=== PATIENT | male | born 1955 | race Caucasian/White ===

== ENCOUNTER → 2016-10-12 | Outpatient (CLI) | payer MEDICARE ==
[2016-10-12 17:09] LABS: Bilirubin, Delta 0.5 mg/dL (0.0-0.2); Total Bilirubin 0.9 mg/dL (0.2-1.3)
[2016-10-12 17:24] LABS: Basophils % (A) 1 %; CH 32.5; CHCM 34.3; Eosinophils # (A) 0.2 k/uL (0-0.7); Eosinophils % (A) 3 %; HCT 44.8 % (39.0-53.0); HDW 2.63; Luc # (Auto) 0.12; Luc % (Auto) 2; Lymphocytes # (A) 1.4 k/uL (1.0-4.8); Lymphocytes % (A) 18 %; MCH 31.9 pg (25.0-35.0); MCHC 33.5 g/dL (31.0-37.0); MCV 95.1 fL (80.0-100.0); Mean Platelet Volume 7.2; Monocytes # (A) 0.3 k/uL (0-1.0); Monocytes % (A) 4 %; Neutrophils # (A) 5.8 k/uL (1.3-7.7); Neutrophils % (A) 74 %; RBC 4.71 m/uL (4.30-5.90); RDW 12.7 % (11.5-15.5); WBC 7.9 k/uL (3.8-10.6); WBC (Perox) 7.93
[2016-10-13 17:27] LABS: Hepatits C Virus RNA, Quant <12 IU/mL (<12); LOG HCV IU/mL <1.08 (<1.08)
== END | disposition home or self-care (01) ==
LOC: LABWHC1 16:18
PROVIDERS: ATTEND Physician Assistant
DX: B18.2 Chronic viral hepatitis C (principal)
CPT/HCPCS: 36415; 80076; 85025; 87522

== ENCOUNTER 2016-12-06 17:41 | Inpatient (IN) | payer MEDICARE ==
[2016-12-06] MEDS ORDERED: SODIUM CHLORIDE 0.9% 1,000 ML IV ONE (18:54)
--- NOTE | 2016-12-06 19:14 | ED ---
URI HPI - General Source: patient, RN notes reviewed Mode of arrival: ambulatory Limitations: no limitations <Aliyah Baugh - Last Filed: 12/06/16 22:40> <Slick Garber - Last Filed: 12/06/16 23:09> - General Chief Complaint: Upper Respiratory Infection Stated Complaint: Poss.flu Time Seen by Provider: 12/06/16 18:52 - History of Present Illness Initial Comments: Patient is 61-year-old male chief complaint of fatigue and increased cough over the past 3 months. 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 He has been on 2 Z-Paks and Levaquin however is not any better. Patient reports that last him he is on antibiotic was approximately a month ago. Patient states that he is coughing up purulent sputum. He denies any history of COPD but does smoke 3 cigarettes a day. Patient states that he has also had 2 episodes of vomiting yesterday. Patient denies any fever or chills. (Aliyah Baugh) - Related Data Home Medications Medication Instructions Recorded Confirmed Methadone [Dolophine] 40 mg PO DAILY 09/03/14 12/06/16 Diazepam [Valium] 10 mg PO DAILY 12/08/15 12/06/16 Cetirizine HCl 10 mg PO DAILY 12/06/16 12/06/16 Lisinopril [Prinivil] 10 mg PO DAILY 12/06/16 12/06/16 Allergies Allergy/AdvReac Type Severity Reaction Status Date / Time Penicillins Allergy Unknown Verified 12/06/16 20:10 Childhood Review of Systems ROS Other: All systems not noted in ROS Statement are negative. <Aliyah Baugh - Last Filed: 12/06/16 22:40> ROS Other: All systems not noted in ROS Statement are negative. <Slick Garber - Last Filed: 12/06/16 23:09> ROS Statement: Those systems with pertinent positive or pertinent negative responses have been documented in the HPI. Past Medical History Past Medical History: Hypertension, Liver Disease Additional Past Medical History / Comment(s): HEP C; HX OF DIALYSIS PER PT, NOW OFF. History of Any Multi-Drug Resistant Organisms: MRSA Date of last positivie culture/infection: 2007 MDRO Source:: Blood/Bone Past Surgical History: Cholecystectomy, Hernia Repair, Tonsillectomy Additional Past Surgical History / Comment(s): COLONOSCOPY. Umbilical and Inguinal surgery x4 Past Anesthesia/Blood Transfusion Reactions: No Reported Reaction Past Psychological History: Anxiety, Panic Disorder Smoking Status: Current every day smoker Past Alcohol Use History: Occasional Additional Past Alcohol Use History / Comment(s): STATES ABOUT 3-4 shots of ryan alfred per day Past Drug Use History: None Reported Additional Drug Use History / Comment(s): Methadone for opiates taken for severe back pain - Past Family History Mother Family Medical History: Cancer Additional Family Medical History / Comment(s): of colon CA Father Family Medical History: Cancer Additional Family Medical History / Comment(s): Colostomy from colon CA <Aliyah Baugh - Last Filed: 12/06/16 22:40> General Exam Limitations: no limitations <Aliyah Baugh - Last Filed: 12/06/16 22:40> General appearance: alert, in no apparent distress, anxious Head exam: Present: atraumatic, normocephalic, normal inspection Eye exam: Present: normal appearance, PERRL, EOMI. Absent: scleral icterus, conjunctival injection, periorbital swelling ENT exam: Present: normal exam, mucous membranes moist Neck exam: Present: normal inspection. Absent: tenderness, meningismus, lymphadenopathy Respiratory exam: Present: normal lung sounds bilaterally, wheezes, decreased breath sounds, prolonged expiratory. Absent: respiratory distress, rales, rhonchi, stridor Cardiovascular Exam: Present: regular rate, normal rhythm, normal heart sounds. Absent: systolic murmur, diastolic murmur, rubs, gallop, clicks GI/Abdominal exam: Present: soft, normal bowel sounds. Absent: distended, tenderness, guarding, rebound, rigid Extremities exam: Present: normal inspection, full ROM, normal capillary refill. Absent: tenderness, pedal edema, joint swelling, calf tenderness Back exam: Present: normal inspection Neurological exam: Present: alert, oriented X3, CN II-XII intact Psychiatric exam: Present: normal affect, normal mood Skin exam: Present: warm, dry, intact, normal color. Absent: rash <Slick Garber - Last Filed: 12/06/16 23:09> Course <Aliyah Baugh - Last Filed: 12/06/16 22:40> <Slick Garber - Last Filed: 12/06/16 23:09> Vital Signs 12/06/16 12/06/16 12/06/16 18:29 20:00 20:56 Temperature 98.4 F 98.6 F Pulse Rate 70 98 76 Respiratory 18 24 Rate Blood Pressure 91/55 126/65 O2 Sat by Pulse 91 L 94 L Oximetry 12/06/16 12/06/16 12/06/16 21:00 21:03 22:00 Temperature 100.5 F H Pulse Rate 99 76 103 H Respiratory 22 22 Rate Blood Pressure 141/58 99/64 O2 Sat by Pulse 96 94 L Oximetry 12/06/16 23:00 Temperature 100.6 F H Pulse Rate 102 H Respiratory 20 Rate Blood Pressure 112/72 O2 Sat by Pulse 93 L Oximetry - Reevaluation(s) Reevaluation #1: 12/06/16 23:08 Said patient is improved with symptomatically therapy fever control, we'll give breathing treatment (Slick Garber) Medical Decision Making - Lab Data Result diagrams: 12/06/16 20:04 12/06/16 20:04 - Radiology Data Radiology results: report reviewed <Lachelle Baughily - Last Filed: 12/06/16 22:40> - Lab Data Result diagrams: 12/06/16 20:04 12/06/16 20:04 - Radiology Data Radiology results: report reviewed (Chest x-ray suggestive for pneumonia), image reviewed <Slick Garber - Last Filed: 12/06/16 23:09> - Medical Decision Making Patient is 61-year-old male chief complaint of fatigue and increased cough over the past 3 months. He has been on 2 Z-Paks and Levaquin however is not any better. Patient reports that last him he is on antibiotic was approximately a month ago. Patient states that he is coughing up purulent sputum. He denies any history of COPD but does smoke 3 cigarettes a day. Patient states that he has also had 2 episodes of vomiting yesterday. Patient denies any fever or chills. Patient's labwork was reviewed. Is evidence of acute kidney injury.Patient has a BUN of 36, creatinine of 2.5. patient's chest x-ray shows a right lower lobe middle lobe pneumonia. Patient does have positive for influenza. We have the [employer] establish IV line. Patient is given fluids at this time. Given that he had significant elevation in kidney function we will do a CT of the chest without contrast. Chest x-ray was reviewed and is appearing somewhat similar to his previous pneumonia in the right lower lobe. CT chest shows evidence of chronic asbestosis. No pleural effusion or signs of actual pneumonia. (Aliyah Baugh) 61 meowed ER for evaluation of fever, positive fluid, positive pneumonia, will be admitted for IV antibiotics and hemodynamic monitoring (Slick Garber) - Lab Data Lab Results 12/06/16 12/06/16 12/06/16 Range/Units 18:55 20:04 20:04 WBC (3.8-10.6) k/uL RBC (4.30-5.90) m/uL Hgb (13.0-17.5) gm/dL Hct (39.0-53.0) % MCV (80.0-100.0) fL MCH (25.0-35.0) pg MCHC (31.0-37.0) g/dL RDW (11.5-15.5) % Plt Count (150-450) k/uL Neutrophils % (Manual) % Band Neutrophils % % Lymphocytes % (Manual) % Monocytes % (Manual) % Eosinophils % (Manual) % Neutrophils # (Manual) (1.3-7.7) k/uL Lymphocytes # (Manual) (1.0-4.8) k/uL Monocytes # (Manual) (0-1.0) k/uL Eosinophils # (Manual) (0-0.7) k/uL Nucleated RBCs (0-0) /100 WBC Manual Slide Review Toxic Granulation PT 10.9 (9.0-12.0) sec INR 1.1 (<1.1) APTT 23.6 (22.0-30.0) sec Sodium 139 (137-145) mmol/L Potassium 4.5 (3.5-5.1) mmol/L Chloride 104 (98-107) mmol/L Carbon Dioxide 20 L (22-30) mmol/L Anion Gap 15 mmol/L BUN 36 H (9-20) mg/dL Creatinine 2.50 H (0.66-1.25) mg/dL Est GFR (MDRD) Af Amer 32 (>60 ml/min/1.73 sqM) Est GFR (MDRD) Non-Af 26 (>60 ml/min/1.73 sqM) Glucose 86 (74-99) mg/dL Plasma Lactic Acid Juan Manuel (0.7-2.0) mmol/L Calcium 8.8 (8.4-10.2) mg/dL Magnesium 1.7 (1.6-2.3) mg/dL Total Bilirubin 0.8 (0.2-1.3) mg/dL AST 84 H (17-59) U/L ALT 71 (21-72) U/L Alkaline Phosphatase 61 (38-126) U/L Total Creatine Kinase (55-170) U/L CK-MB (CK-2) (0.0-2.4) ng/mL CK-MB (CK-2) Rel Index Troponin I (0.000-0.034) ng/mL NT-Pro-B Natriuret Pep pg/mL Total Protein 7.4 (6.3-8.2) g/dL Albumin 4.3 (3.5-5.0) g/dL Amylase 101 (30-110) U/L Lipase 52 (23-300) U/L Urine Color Urine Appearance (Clear) Urine pH (5.0-8.0) Ur Specific [place] (1.001-1.035) Urine Protein (Negative) Urine Glucose (UA) (Negative) Urine Ketones (Negative) Urine Blood (Negative) Urine Nitrite (Negative) Urine Bilirubin (Negative) Urine Urobilinogen (<2.0) mg/dL Ur Leukocyte Esterase (Negative) Urine RBC (0-5) /hpf Urine WBC (0-5) /hpf Ur Squamous Epith Cells (0-4) /hpf Urine Bacteria (None) /hpf Hyaline Casts (0-2) /lpf Granular Casts (0) /lpf Urine Mucus (None) /hpf Influenza Type A RNA Not Detected (Not Detectd) Influenza Type B (PCR) Detected H (Not Detectd) 12/06/16 12/06/16 12/06/16 Range/Units 20:04 20:04 20:04 WBC 3.7 L (3.8-10.6) k/uL RBC 4.66 (4.30-5.90) m/uL Hgb 15.1 (13.0-17.5) gm/dL Hct 44.4 (39.0-53.0) % MCV 95.3 (80.0-100.0) fL MCH 32.4 (25.0-35.0) pg MCHC 34.0 (31.0-37.0) g/dL RDW 14.0 (11.5-15.5) % Plt Count 128 L (150-450) k/uL Neutrophils % (Manual) 55.0 % Band Neutrophils % 2.0 % Lymphocytes % (Manual) 31.0 % Monocytes % (Manual) 11.0 % Eosinophils % (Manual) 1.0 % Neutrophils # (Manual) 2.1 (1.3-7.7) k/uL Lymphocytes # (Manual) 1.1 (1.0-4.8) k/uL Monocytes # (Manual) 0.4 (0-1.0) k/uL Eosinophils # (Manual) 0.0 (0-0.7) k/uL Nucleated RBCs 0 (0-0) /100 WBC Manual Slide Review Performed Toxic Granulation Present PT (9.0-12.0) sec INR (<1.1) APTT (22.0-30.0) sec Sodium (137-145) mmol/L Potassium (3.5-5.1) mmol/L Chloride (98-107) mmol/L Carbon Dioxide (22-30) mmol/L Anion Gap mmol/L BUN (9-20) mg/dL Creatinine (0.66-1.25) mg/dL Est GFR (MDRD) Af Amer (>60 ml/min/1.73 sqM) Est GFR (MDRD) Non-Af (>60 ml/min/1.73 sqM) Glucose (74-99) mg/dL Plasma Lactic Acid Juan Manuel (0.7-2.0) mmol/L Calcium (8.4-10.2) mg/dL Magnesium (1.6-2.3) mg/dL Total Bilirubin (0.2-1.3) mg/dL AST (17-59) U/L ALT (21-72) U/L Alkaline Phosphatase (38-126) U/L Total Creatine Kinase 146 (55-170) U/L CK-MB (CK-2) 0.6 (0.0-2.4) ng/mL CK-MB (CK-2) Rel Index 0.4 Troponin I <0.012 (0.000-0.034) ng/mL NT-Pro-B Natriuret Pep 230 pg/mL Total Protein (6.3-8.2) g/dL Albumin (3.5-5.0) g/dL Amylase (30-110) U/L Lipase (23-300) U/L Urine Color Urine Appearance (Clear) Urine pH (5.0-8.0) Ur Specific [place] (1.001-1.035) Urine Protein (Negative) Urine Glucose (UA) (Negative) Urine Ketones (Negative) Urine Blood (Negative) Urine Nitrite (Negative) Urine Bilirubin (Negative) Urine Urobilinogen (<2.0) mg/dL Ur Leukocyte Esterase (Negative) Urine RBC (0-5) /hpf Urine WBC (0-5) /hpf Ur Squamous Epith Cells (0-4) /hpf Urine Bacteria (None) /hpf Hyaline Casts (0-2) /lpf Granular Casts (0) /lpf Urine Mucus (None) /hpf Influenza Type A RNA (Not Detectd) Influenza Type B (PCR) (Not Detectd) 12/06/16 12/06/16 Range/Units 20:04 20:35 WBC (3.8-10.6) k/uL RBC (4.30-5.90) m/uL Hgb (13.0-17.5) gm/dL Hct (39.0-53.0) % MCV (80.0-100.0) fL MCH (25.0-35.0) pg MCHC (31.0-37.0) g/dL RDW (11.5-15.5) % Plt Count (150-450) k/uL Neutrophils % (Manual) % Band Neutrophils % % Lymphocytes % (Manual) % Monocytes % (Manual) % Eosinophils % (Manual) % Neutrophils # (Manual) (1.3-7.7) k/uL Lymphocytes # (Manual) (1.0-4.8) k/uL Monocytes # (Manual) (0-1.0) k/uL Eosinophils # (Manual) (0-0.7) k/uL Nucleated RBCs (0-0) /100 WBC Manual Slide Review Toxic Granulation PT (9.0-12.0) sec INR (<1.1) APTT (22.0-30.0) sec Sodium (137-145) mmol/L Potassium (3.5-5.1) mmol/L Chloride (98-107) mmol/L Carbon Dioxide (22-30) mmol/L Anion Gap mmol/L BUN (9-20) mg/dL Creatinine (0.66-1.25) mg/dL Est GFR (MDRD) Af Amer (>60 ml/min/1.73 sqM) Est GFR (MDRD) Non-Af (>60 ml/min/1.73 sqM) Glucose (74-99) mg/dL Plasma Lactic Acid Juan Manuel 1.3 (0.7-2.0) mmol/L Calcium (8.4-10.2) mg/dL Magnesium (1.6-2.3) mg/dL Total Bilirubin (0.2-1.3) mg/dL AST (17-59) U/L ALT (21-72) U/L Alkaline Phosphatase (38-126) U/L Total Creatine Kinase (55-170) U/L CK-MB (CK-2) (0.0-2.4) ng/mL CK-MB (CK-2) Rel Index Troponin I (0.000-0.034) ng/mL NT-Pro-B Natriuret Pep pg/mL Total Protein (6.3-8.2) g/dL Albumin (3.5-5.0) g/dL Amylase (30-110) U/L Lipase (23-300) U/L Urine Color Yellow Urine Appearance Cloudy (Clear) Urine pH 5.5 (5.0-8.0) Ur Specific [place] 1.015 (1.001-1.035) Urine Protein 1+ H (Negative) Urine Glucose (UA) Negative (Negative) Urine Ketones Negative (Negative) Urine Blood Negative (Negative) Urine Nitrite Negative (Negative) Urine Bilirubin Negative (Negative) Urine Urobilinogen <2.0 (<2.0) mg/dL Ur Leukocyte Esterase Negative (Negative) Urine RBC <1 (0-5) /hpf Urine WBC 2 (0-5) /hpf Ur Squamous Epith Cells <1 (0-4) /hpf Urine Bacteria Rare H (None) /hpf Hyaline Casts 16 H (0-2) /lpf Granular Casts 3 (0) /lpf Urine Mucus Rare H (None) /hpf Influenza Type A RNA (Not Detectd) Influenza Type B (PCR) (Not Detectd) 12/06/16 19:14 EKG shows normal sinus rhythm. Low voltage QRS. Ventricular rate of 80 bpm. GA interval 124 ms. QRS tracing 70 ms. QT/QTC 5412 ms. No evidence of ST elevation or T-wave inversion. No evidence of atrial or ventricular arrhythmias. (Aliyah Baugh) - Radiology Data CT shows no acute process. Bilateral complexfindings compatible with this testis related change, would advise one-year follow-up chest CT surveillance. ( Aliyah Baugh) Disposition Time of Disposition: 22:39 <Aliyah Baugh - Last Filed: 12/06/16 22:40> <Slick Graber - Last Filed: 12/06/16 23:09> Clinical Impression: Influenza, Pulmonary asbestosis, Acute kidney injury, Pneumonia Disposition: ADMITTED IP TO THIS HOSP Condition: Stable Referrals: Terese Cortez MD [Primary Care Provider] - 1-2 days
--- NOTE | 2016-12-06 20:06 | XR ---
EXAMINATION TYPE: XR chest 2V DATE OF EXAM: 12/06/2016 7:45 PM COMPARISON: December 18, 2015 HISTORY: Cough TECHNIQUE: Frontal and lateral views of the chest are obtained. FINDINGS: There is a geographic zone of coalescent opacity in the right lower lung, suggesting bronc hopneumonia. Remainder of the lung parenchyma is unremarkable. There is no pulmonary edema. The cardiac silhouette size is within normal limits. There is no pleural effusion, or pneumothorax. The osseous structures are intact. IMPRESSION: RADIOGRAPHIC FINDINGS SUGGEST RIGHT LOWER LOBE BRONCHOPNEUMONIA.
--- NOTE | 2016-12-06 20:08 | XR ---
EXAMINATION TYPE: Abdominal radiographs 2 views DATE OF EXAM: 12/06/2016 7:45 PM COMPARISON: NONE HISTORY: Weakness and generalized pain TECHNIQUE: 2 upright views FINDINGS: There is no pneumatosis and no pneumoperitoneum. The bowel gas pattern is negative. The sof t tissues and skeletal structures are negative for acute findings. IMPRESSION: No acute process.
[2016-12-06 20:27] LABS: Aty Lym Flag Slight; CH 32.8; CHCM 34.6; HCT 44.4 % (39.0-53.0); HDW 3.06; HGB 15.1 gm/dL (13.0-17.5); MCH 32.4 pg (25.0-35.0); MCV 95.3 fL (80.0-100.0); RBC 4.66 m/uL (4.30-5.90); WBC 3.7 k/uL (3.8-10.6); WBC (Perox) 3.89
[2016-12-06 20:38] LABS: INR 1.1 (<1.1); Partial Thromboplastin Time 23.6 sec (22.0-30.0); Prothrombin Time 10.9 sec (9.0-12.0)
[2016-12-06 20:39] LABS: Calcium 8.8 mg/dL (8.4-10.2); Creatine Kinase 146 U/L (55-170); Magnesium 1.7 mg/dL (1.6-2.3); Potassium 4.5 mmol/L (3.5-5.1); Total Bilirubin 0.8 mg/dL (0.2-1.3); Total Protein 7.4 g/dL (6.3-8.2)
[2016-12-06 20:40] LABS: Add Differential Manual Differential
[2016-12-06 20:44] LABS: Manual Review Performed; Nucleated Red Blood Cells 0 /100 WBC (0-0); Total Cells Counted 100; Toxic Granulation Present
[2016-12-06] MEDS ORDERED: IPRATROPIUM-ALBUTEROL 3 ML NEB INHALATION STA (20:48)
[2016-12-06 20:51] LABS: Appearance,Urine Cloudy (Clear); Bacteria,Urine Rare /hpf; Bilirubin,Urine Negative (Negative); Glucose,Urine (UA) Negative (Negative); Granular Casts,Urine 3 /lpf (0); Ketones,Urine Negative (Negative); Leukocyte Esterase,Urine Negative (Negative); Mucus,Urine Rare /hpf; Nitrite,Urine Negative (Negative); PH, Urine 5.5 (5.0-8.0); Particle Count 6924; Protein,Urine 1+ (Negative); RBC,Urine <1 /hpf (0-5); Specific Gravity,Urine 1.015 (1.001-1.035); Squamous Epithelial Cell,Urine <1 /hpf (0-4); UA Billing (MACRO vs. MICRO) MICRO; Urobilinogen,Urine <2.0 mg/dL (<2.0); WBC,Urine 2 /hpf (0-5)
[2016-12-06 20:51] LABS: Creatine Kinase MB 0.6 ng/mL (0.0-2.4); Troponin I <0.012 ng/mL (0.000-0.034)
[2016-12-06] MEDS: SODIUM CHLORIDE 0.9% 1,000 ML IV SCH (22:02)
[2016-12-06] MEDS ORDERED: ACETAMINOPHEN TAB 500 MG TAB PO STA (22:23)
--- NOTE | 2016-12-06 22:23 | CT ---
EXAMINATION TYPE: CT chest wo con DATE OF EXAM: 12/06/2016 9:35 PM COMPARISON: Supradiaphragmatic images from the December 21, 2015 CT HISTORY: Cough and chest congestion. CT DLP: 302.50 mGycm. Automated exposure control for dose reduction was used. FINDINGS: There is redemonstration of the bilateral complex posterolateral pleural thickening associa lennie with pleural-based calcifications, much more prominent on the right. 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 The remainder of the lung parenchyma is clear and well expanded bilaterally. Airways are clear. Coron marilyn calcifications are noted. There is no cardiomegaly. No pericardial effusion. Visualized subdiaphr agmatic structures are unremarkable. Skeletal structures are negative. IMPRESSION: 1. NO ACUTE PROCESS. 2. BILATERAL COMPLEX PLEURAL SPACE FINDINGS COMPATIBLE WITH ASBESTOS RELATED CHANGE; WOULD ADVISE ONE YEAR FOLLOW-UP CHEST CT SURVEILLANCE.
[2016-12-06] MEDS ORDERED: NALOXONE 0.4 MG/ML 1 ML VIAL IV PRN (22:49)
[2016-12-06] MEDS ORDERED: HYDROmorphone 1 MG/ML 1 ML SYRINGE IV PRN (22:49)
[2016-12-06] MEDS ORDERED: BENZOCAINE/MENTHOL LOZENG 1 EACH LOZENGE MUCOUS MEM PRN (22:49)
[2016-12-06] MEDS ORDERED: ACETAMINOPHEN TAB 325 MG TAB PO PRN (22:49)
[2016-12-06] MEDS ORDERED: LEVOFLOXACIN 750MG-D5W PMX 750 MG in DEXTROSE/WATER 1 150ML.BAG IVPB SCH (23:00)
[2016-12-06] MEDS ORDERED: IPRATROPIUM-ALBUTEROL 3 ML NEB INHALATION PRN (23:02)
[2016-12-07] MEDS ORDERED: IPRATROPIUM-ALBUTEROL 3 ML NEB INHALATION SCH
[2016-12-07] MEDS ORDERED: SODIUM CHLORIDE 0.9% 1,000 ML IV ONE ×2 (00:50→06:39)
[2016-12-07 01:35] LABS: Glucose,Whole Blood 119 mg/dL (75-99)
[2016-12-07] MEDS: OSELTAMIVIR 75 MG CAP PO SCH ×2 (02:04→08:35)
[2016-12-07] MEDS: SODIUM CHLORIDE 0.9% 1,000 ML IV SCH ×6 (02:04→19:34)
[2016-12-07 04:47] LABS: CHCM 34.3; HCT 38.9 % (39.0-53.0); HDW 3.07; HGB 13.7 gm/dL (13.0-17.5); MCH 33.9 pg (25.0-35.0); MCHC 35.1 g/dL (31.0-37.0); MCV 96.7 fL (80.0-100.0); Mean Platelet Volume 6.7; RBC 4.03 m/uL (4.30-5.90); RDW 13.9 % (11.5-15.5); WBC 2.7 k/uL (3.8-10.6)
[2016-12-07 05:01] LABS: Calcium 7.6 mg/dL (8.4-10.2); Magnesium 1.6 mg/dL (1.6-2.3); Phosphorous 5.5 mg/dL (2.5-4.5)
[2016-12-07] MEDS: HEPARIN SODIUM,PORCINE 5,000 UNIT/ML 1 ML VIAL SQ SCH ×3 (08:34→23:22)
[2016-12-07] MEDS: LORATADINE 10 MG TAB PO SCH (08:34)
[2016-12-07] MEDS: NICOTINE 14MG/24HR PATCH TRANSDERM SCH (08:36)
[2016-12-07] MEDS ORDERED: FAMOTIDINE 20 MG TAB PO SCH (09:00)
[2016-12-07] MEDS ORDERED: LISINOPRIL 10 MG TAB PO SCH (09:00)
[2016-12-07] MEDS: DIAZEPAM 5 MG TAB PO SCH (09:01)
--- NOTE | 2016-12-07 09:25 | P.CNPUL ---
History of Present Illness Consult date: 12/07/16 Reason for consult: other Chief complaint: Hypotension History of present illness: This is a 61-year-old male who was apparently seen in the emergency room for possible fatigue and upper respiratory infection. The patient had cough for the last couple of months. Apparently tested positive for influenza B. He was started on Levaquin and Tamiflu. He was thought to have possible right lower lobe pneumonia. Probably those changes in the right lower lobe a more chronic in nature. He also apparently has a history of previous asbestos exposure has some changes on chest x-ray and CAT scan that suggested chronic chronic asbestos associated lung disease. The patient had been on a Z-Dylan as an outpatient. Had not been feeling better. He was coughing producing some phlegm. He does smoke a couple cigarettes a day. Today asking for his pain medication. Anyway the patient was on the fifth floor where he was admitted. He was admitted on December 06. He was transferred to the ICU because of "" hypotension. No 18 was called. I was not notified of the admission. The patient arrived here in the ICU and received some additional fluids. Totally that the patient has received about 3 L of fluid. Currently patient on IV appointment 9 at 1:15 hour. He is received 3 L of total fluid. He is on O2 at 2 L. Blood pressure today was 110 systolic. Even when his blood pressure was low, he apparently was not particularly symptomatic. Review of Systems A 12 point review of system is positive for fatigue weakness cough and some phlegm production. For this he was treated with some antibiotics as an outpatient was started on Levaquin and Tamiflu. He tested positive for influenza B. Past Medical History Past Medical History: Hypertension, Liver Disease Additional Past Medical History / Comment(s): HEP C; HX OF DIALYSIS PER PT, NOW OFF. History of Any Multi-Drug Resistant Organisms: MRSA Date of last positivie culture/infection: 2007 MDRO Source:: Blood/Bone Past Surgical History: Cholecystectomy, Hernia Repair, Tonsillectomy Additional Past Surgical History / Comment(s): COLONOSCOPY. Umbilical and Inguinal surgery x4 Past Anesthesia/Blood Transfusion Reactions: No Reported Reaction Past Psychological History: Anxiety, Panic Disorder Smoking Status: Light tobacco smoker Past Alcohol Use History: Occasional Additional Past Alcohol Use History / Comment(s): STATES ABOUT 3-4 shots of captian aubrie per day Past Drug Use History: None Reported Additional Drug Use History / Comment(s): Methadone for opiates taken for severe back pain - Past Family History Mother Family Medical History: Cancer Additional Family Medical History / Comment(s): of colon CA Father Family Medical History: Cancer Additional Family Medical History / Comment(s): Colostomy from colon CA Medications and Allergies Home Medications Medication Instructions Recorded Confirmed Type Methadone [Dolophine] 40 mg PO DAILY 09/03/14 12/06/16 History Diazepam [Valium] 10 mg PO DAILY 12/08/15 12/06/16 History Cetirizine HCl 10 mg PO DAILY 12/06/16 12/06/16 History Lisinopril [Prinivil] 10 mg PO DAILY 12/06/16 12/06/16 History Allergies Allergy/AdvReac Type Severity Reaction Status Date / Time Penicillins Allergy Unknown Verified 12/06/16 20:10 Childhood Physical Exam Osteopathic Statement: *. No significant issues noted on an osteopathic structural exam other than those noted in the History and Physical/Consult. Vitals: Vital Signs Temp Pulse Resp BP BP Pulse Ox 12/07/16 09:00 70 14 102/72 100 12/07/16 08:30 62 9 L 78/47 100 12/07/16 08:00 97.6 F 61 11 L 84/50 100 12/07/16 07:30 59 L 11 L 85/63 100 12/07/16 07:00 62 8 L 82/58 100 12/07/16 06:30 65 12 75/54 99 12/07/16 06:00 67 9 L 84/67 98 12/07/16 05:30 68 9 L 78/57 97 12/07/16 05:00 69 11 L 92/60 97 12/07/16 04:30 68 9 L 89/69 96 12/07/16 04:00 97.8 F 70 10 L 91/68 95 12/07/16 03:00 73 11 L 83/64 93 L 12/07/16 02:30 75 11 L 90/68 93 L 12/07/16 02:11 20 12/07/16 02:00 75 11 L 75/62 92 L 12/07/16 01:39 82 20 74/58 94 L 12/07/16 00:54 86/56 12/07/16 00:53 80/60 12/06/16 23:30 99.9 F H 12/06/16 23:27 77 20 115/63 93 L Intake and Output 12/06/16 12/07/16 12/07/16 22:59 06:59 14:59 Intake Total 1600 1150 Output Total 300 Balance 1300 1150 Intake: IV 1600 1150 Sodium Chloride 0.9% 1, 600 150 000 ml @ 150 mls/hr IV . Q6H40M [facility] Rx#:[id number] Sodium Chloride 0.9% 1, 1000 1000 000 ml @ 999 mls/hr IV . Q1H1M [facility] Rx#:[id number] Output: Urine 300 Other: Voiding Method Urinal Urinal # Voids 0 Weight 84.2 kg No acute distress, oriented 3. HEENT examination is grossly unremarkable. Nasal O2 in place. Mucous membranes are moist. Neck supple. Full range of motion. No adenopathy. Cardiovascular examination reveals regular rhythm rate. S1-S2 normal. No murmur. Lungs clear breath sounds are equal. Abdomen soft bowel sounds are heard Extremities are intact. Results - Laboratory Findings CBC and BMP: 12/07/16 04:23 12/07/16 04:23 PT/INR, D-dimer PT 10.9 sec (9.0-12.0) 12/06/16 20:04 INR 1.1 (<1.1) 12/06/16 20:04 Abnormal lab findings: Abnormal Labs 12/07/16 12/07/16 12/07/16 01:34 04:23 04:23 WBC 2.7 L RBC 4.03 L Hct 38.9 L Plt Count 93 L Carbon Dioxide 20 L BUN 42 H Creatinine 2.24 H Glucose 100 H POC Glucose (mg/dL) 119 H Calcium 7.6 L Phosphorus 5.5 H - Diagnostic Findings Chest x-ray: image reviewed CT scan - chest: image reviewed (Labs x-rays and medications are reviewed.) Assessment and Plan (1) Acute kidney injury Status: Acute (2) Influenza Status: Acute (3) Pulmonary asbestosis Status: Acute (4) Acute renal failure Status: Acute Plan: Plan dated 12/07/2016 The patient probably does not have bacterial pneumonia. Does have been following as a B. He's currently on Tamiflu. I will review his medications x- rays and labs. He probably does have chronic asbestos exposure some asbestos associated lung disease. Mostly pleural thickening and plaques. The patient stable hemodynamically currently. He did respond to fluids. We'll watch him here in the ICU. Later taking move out to the general medical floor. Nephrology should be consulted if they have and ready been. Additional recommendations suggestions are forthcoming. No pain medication at this time. Time with Patient: Greater than 30
[2016-12-07] MEDS ORDERED: LEVOFLOXACIN 500 MG TAB PO SCH (09:30)
[2016-12-07] MEDS: MAGNESIUM SULFATE-D5W PMX 1 GM in DEXTROSE/WATER 1 100ML.BAG IVPB SCH ×2 (09:49→10:41)
--- NOTE | 2016-12-07 10:56 | P.NPCON ---
History of Present Illness - Reason for Consult acute renal failure - History of Present Illness Reason for consultation: Acute kidney injury History of present illness: Patient is a 61-year-old male seen in renal consultation for acute kidney injury. His baseline creatinine is near 1 and was elevated at 2.5 as of yesterday. It is down to 2.24 today. Patient states he's been feeling quite ill for the last 2 weeks or so. He did complete 2 courses of Z-Dylan without improvement in his symptoms. He admits to a productive cough with greenish sputum. Denies any vomiting or diarrhea. His oral intake has been very minimal. Last couple of weeks. He was hypotensive on admission with systolic blood pressure in the 70s which is now improved after he received 3 L of IV fluid bolus in the ER and is currently maintained on normal saline running at 125 mL an hour. Denies hematuria or dysuria. Denies use of NSAIDs at home. Denies any family history of renal disease. Denies chest pain or shortness of breath. States he was extremely sick about 7 years ago and at that time required short-term hemodialysis. He is currently being treated for influenza type B. Vital signs are stable. General: The patient appeared well nourished and normally developed. HEENT: Head exam is unremarkable. Neck is without jugular venous distension. LUNGS: Mild rhonchi at bases. Breath sounds decreased. HEART: Rate and Rhythm are regular. First and second heart sounds normal. No murmurs, rubs or gallops. ABDOMEN: Abdominal exam reveals normal bowel sounds. Non-tender and non- distended. No evidence of peritonitis. EXTREMITITES: No clubbing, cyanosis, or edema. Past Medical History Past Medical History: Hypertension, Liver Disease Additional Past Medical History / Comment(s): HEP C; HX OF DIALYSIS PER PT, NOW OFF. History of Any Multi-Drug Resistant Organisms: MRSA Date of last positivie culture/infection: 2007 MDRO Source:: Blood/Bone Past Surgical History: Cholecystectomy, Hernia Repair, Tonsillectomy Additional Past Surgical History / Comment(s): COLONOSCOPY. Umbilical and Inguinal surgery x4 Past Anesthesia/Blood Transfusion Reactions: No Reported Reaction Past Psychological History: Anxiety, Panic Disorder Smoking Status: Light tobacco smoker Past Alcohol Use History: Occasional Additional Past Alcohol Use History / Comment(s): STATES ABOUT 3-4 shots of captian aubrie per day Past Drug Use History: None Reported Additional Drug Use History / Comment(s): Methadone for opiates taken for severe back pain - Past Family History Mother Family Medical History: Cancer Additional Family Medical History / Comment(s): of colon CA Father Family Medical History: Cancer Additional Family Medical History / Comment(s): Colostomy from colon CA Medications and Allergies Home Medications Medication Instructions Recorded Confirmed Type Methadone [Dolophine] 40 mg PO DAILY 09/03/14 12/06/16 History Diazepam [Valium] 10 mg PO DAILY 12/08/15 12/06/16 History Cetirizine HCl 10 mg PO DAILY 12/06/16 12/06/16 History Lisinopril [Prinivil] 10 mg PO DAILY 12/06/16 12/06/16 History Allergies Allergy/AdvReac Type Severity Reaction Status Date / Time Penicillins Allergy Unknown Verified 12/06/16 20:10 Childhood Physical Exam Vitals: Vital Signs Temp Pulse Resp BP BP Pulse Ox 12/07/16 09:00 70 14 102/72 100 12/07/16 08:30 62 9 L 78/47 100 12/07/16 08:00 97.6 F 61 11 L 84/50 100 12/07/16 07:30 59 L 11 L 85/63 100 12/07/16 07:00 62 8 L 82/58 100 12/07/16 06:30 65 12 75/54 99 12/07/16 06:00 67 9 L 84/67 98 12/07/16 05:30 68 9 L 78/57 97 12/07/16 05:00 69 11 L 92/60 97 12/07/16 04:30 68 9 L 89/69 96 12/07/16 04:00 97.8 F 70 10 L 91/68 95 12/07/16 03:00 73 11 L 83/64 93 L 12/07/16 02:30 75 11 L 90/68 93 L 12/07/16 02:11 20 12/07/16 02:00 75 11 L 75/62 92 L 12/07/16 01:39 82 20 74/58 94 L 12/07/16 00:54 86/56 12/07/16 00:53 80/60 12/06/16 23:30 99.9 F H 12/06/16 23:27 77 20 115/63 93 L Intake and Output 12/06/16 12/07/16 12/07/16 22:59 06:59 14:59 Intake Total 1600 1150 Output Total 300 Balance 1300 1150 Intake: IV 1600 1150 Sodium Chloride 0.9% 1, 600 150 000 ml @ 150 mls/hr IV . Q6H40M RADHA Rx#:[id number] Sodium Chloride 0.9% 1, 1000 1000 000 ml @ 999 mls/hr IV . Q1H1M ONE Rx#:[id number] Output: Urine 300 Other: Voiding Method Urinal Urinal # Voids 0 Weight 84.2 kg Results - Lab Results Most recent lab results Calcium 7.6 mg/dL (8.4-10.2) L 12/07/16 04:23 Phosphorus 5.5 mg/dL (2.5-4.5) H 12/07/16 04:23 Magnesium 1.6 mg/dL (1.6-2.3) 12/07/16 04:23 12/07/16 04:23 12/07/16 04:23 Assessment and Plan Plan: Assessment: #1. Nonoliguric acute kidney injury mostly prerenal in nature secondary to hypotension and poor oral intake. Improving. Creatinine was 2.5 on admission and is down to 2.24 today. Urinalysis does reveal 1+ proteinuria which can be nonspecific in the setting for acute kidney injury. No hematuria noted. #2. Hypotension due to hypovolemia. Improved. #3. Influenza type B. #4. Metabolic acidosis secondary to acute kidney injury and IV fluids. #5. Hyperphosphatemia secondary to acute kidney injury. Expect improvement with improved renal function. #6. Hypomagnesemia. Plan: Maintain normal saline to be run at 125 mL an hour. Start oral sodium bicarbonate supplementation. Check renal ultrasound. Avoid nephrotoxic agents and hypotensive episodes. Antihypertensives held. Continue to monitor renal function and urine output. Replace magnesium. 2 g today. Thank you for the consultation. I will continue to follow the patient with you during his hospital stay.
[2016-12-07] MEDS ORDERED: METHADONE 10 MG TAB PO ONE (11:56)
[2016-12-07] MEDS: SODIUM BICARBONATE TAB 650 MG TAB PO SCH ×2 (12:35→21:00)
--- NOTE | 2016-12-07 13:34 | US ---
EXAMINATION TYPE: US kidneys/renal and bladder DATE OF EXAM: 12/07/2016 11:35 AM COMPARISON: on PACS CLINICAL HISTORY: emilee. EXAM MEASUREMENTS: Right Kidney: 9.9 x 5.3 x 5.2 cm Left Kidney: 10.0 x 4.7 x 4.7 cm Right Kidney: wnl Left Kidney: wnl Bladder: distended, wnl as visualized Bilateral Jets seen Yes There is no evidence for hydronephrosis at this point in time. No nephrolithiasis is seen. No dangelo s are identified. The urinary bladder is anechoic. Bilateral ureteral jets are seen. Cortical medullary differentiation is maintained. IMPRESSION: Renal size as described.
[2016-12-07] MEDS ORDERED: POLYETHYLENE GLYCOL 3350 17 GM POWD.PACK PO PRN (14:18)
[2016-12-07] MEDS: OSELTAMIVIR 60 MG/10 ML ORAL SYRINGE PO SCH (21:00)
--- NOTE | 2016-12-07 21:41 | HP ---
DATE OF ADMISSION: Patient is a 61-year-old who came in with complaints of fatigue and URI-like symptoms with cough, without any significant sputum production, and patient was found to have positive influenza B. Chest x-ray did not show any pneumonic process, although patient underwent CT scan as well which showed some asbestosis ( ) there is no pneumonic process. Patient was complaining of clear sputum production. Patient is a smoker. Patient denies any fever or chills. Patient appears to have had low-grade fever here and patient was started on Tamiflu and levofloxacin. I discontinued the levofloxacin. Patient was initially thought to have right lower lobe pneumonia and patient was initially admitted to medical/surgical floor, subsequently transferred to ICU because of hypotension. Patient has poor ( ) intake leading to kidney dysfunction along with Lisinopril, which is contributing to hypotension. Patient was started on IV fluids. Patient's baseline creatinine is around 0.9 ( ) nephrology as well. Patient most probably has prerenal azotemia or hypotension-related acute tubular necrosis. Patient was fluid-resuscitated. Patient is clinically doing well and will be transferred out of ICU. REVIEW OF SYSTEMS: CONSTITUTIONAL: No fever, no malaise, no fatigue. HEENT: No recent visual problems or hearing problems. Denied any sore throat. CARDIOVASCULAR: No chest pain, orthopnea, PND, no palpitations, no syncope. PULMONARY: As described in HPI. GASTROINTESTINAL: No diarrhea, no nausea, no vomiting, no abdominal pain. Normoactive bowel sounds. NEUROLOGICAL: No headaches, no weakness, no numbness. HEMATOLOGICAL: Denies any bleeding or petechiae. GENITOURINARY: Denies any burning micturition, frequency, or urgency. MUSCULOSKELETAL/RHEUMATOLOGICAL: Denies any joint pain, swelling, or any muscle pain. ENDOCRINE: Denies any polyuria or polydipsia. The rest of the 14 point review of systems is negative. PAST MEDICAL HISTORY: 1. Hypertension. 2. Hepatitis C. 3. MRSA in the past. 4. Cholecystectomy. 5. Hernia repair. 6. Tonsillectomy. Patient does smoke, about 5 to 6 cigarettes per day. Denied any alcohol abuse or any recent drug abuse. Patient is on methadone. Patient used to use heroin in the past. FAMILY HISTORY: Mother of colon cancer. Father had colon cancer as well. Home medications include: 1. Methadone. 2. Diazepam. 3. Cetirizine. 4. Lisinopril. ALLERGIES: PENICILLIN. PHYSICAL EXAMINATION: VITAL SIGNS: Temperature 97.6, pulse of 70. [id number] T-max is 99.9. Respiratory rate of 14. Blood pressure is 102/72. Saturating at 100% on room air. Patient's blood pressure went as low as 75/54. GENERAL: The patient is alert and oriented x3, not in any acute distress. Well developed, well nourished. HEENT: Pupils are round and equally reacting to light. EOMI. No scleral icterus. No conjunctival pallor. Normocephalic, atraumatic. No pharyngeal erythema. No thyromegaly. CARDIOVASCULAR: S1 and S2 present. No murmurs, rubs, or gallops. PULMONARY: Chest is clear to auscultation, no wheezing or crackles. ABDOMEN: Soft, nontender, nondistended, normoactive bowel sounds. No palpable organomegaly. MUSCULOSKELETAL: No joint swelling or deformity. EXTREMITIES: No cyanosis, clubbing, or pedal edema. NEUROLOGICAL: Gross neurological examination did not reveal any focal deficits. SKIN: No rashes. LABORATORY DATA: CBC and CMP are abnormal for elevated BUN and creatinine of 42 and 2.24. WBC count is 2700. Bicarbonate is 20. Will obtain a lactic acid level on him. ASSESSMENT AND PLAN: 1. Systemic inflammatory response syndrome secondary to influenza B. My suspicion is low for pneumonia ( ) Tamiflu. 2. Acute renal failure secondary to hypotension which is again secondary to poor ( ) intake; patient most probably has prerenal azotemia. There is a possibility of acute tubular necrosis secondary to hypotension. Patient will be continued on IV fluids at 125 mL/hour. Patient received fluid resuscitation. 3. Pulmonary asbestosis. 4. Hypotension related to poor ( ) intake. 5. Hypertension. Patient is actually hypotensive. May not require any Lisinopril. Lisinopril will be discontinued secondary to prerenal azotemia as well as hypotension. 6. History of hepatitis C. Need to follow as an outpatient with Gastroenterology for workup as an outpatient. Patient will be restarted back on methadone at a lower dose.
[2016-12-08] MEDS: SODIUM CHLORIDE 0.9% 1,000 ML IV SCH ×3 (06:47→11:23)
[2016-12-08] MEDS: DIAZEPAM 5 MG TAB PO SCH (07:50)
[2016-12-08] MEDS: HEPARIN SODIUM,PORCINE 5,000 UNIT/ML 1 ML VIAL SQ SCH (07:52)
[2016-12-08] MEDS: LORATADINE 10 MG TAB PO SCH (07:52)
[2016-12-08] MEDS: NICOTINE 14MG/24HR PATCH TRANSDERM SCH (07:53)
[2016-12-08] MEDS: SODIUM BICARBONATE TAB 650 MG TAB PO SCH (07:54)
[2016-12-08] MEDS: OSELTAMIVIR 60 MG/10 ML ORAL SYRINGE PO SCH (07:57)
[2016-12-08 08:38] LABS: Basophils % (A) 1 %; CH 32.6; CHCM 34.3; Eosinophils % (A) 0 %; HCT 36.3 % (39.0-53.0); HDW 2.96; HGB 12.2 gm/dL (13.0-17.5); Luc # (Auto) 0.06; Luc % (Auto) 2; Lymphocytes # (A) 0.7 k/uL (1.0-4.8); Lymphocytes % (A) 28 %; MCH 32.3 pg (25.0-35.0); MCHC 33.7 g/dL (31.0-37.0); MCV 95.8 fL (80.0-100.0); Mean Platelet Volume 6.7; Monocytes # (A) 0.2 k/uL (0-1.0); Monocytes % (A) 8 %; Neutrophils # (A) 1.6 k/uL (1.3-7.7); Neutrophils % (A) 61 %; RBC 3.79 m/uL (4.30-5.90); RDW 13.6 % (11.5-15.5); WBC 2.5 k/uL (3.8-10.6); WBC (Perox) 2.62
[2016-12-08 08:47] LABS: Anion Gap 8 mmol/L; Blood Urea Nitrogen 20 mg/dL (9-20); Calcium 7.8 mg/dL (8.4-10.2); Carbon Dioxide 24 mmol/L (22-30); Chloride 107 mmol/L (98-107); Glucose 86 mg/dL (74-99); Magnesium 1.7 mg/dL (1.6-2.3); Non-African American GFR(MDRD) 55 (>60 ml/min/1.73 sqM); Phosphorous 2.8 mg/dL (2.5-4.5); Potassium 4.2 mmol/L (3.5-5.1); Sodium 139 mmol/L (137-145)
[2016-12-08 08:56] VITALS: PULSE 75; RESP 18
[2016-12-08] MEDS ORDERED: FAMOTIDINE 20 MG TAB PO SCH (09:00)
[2016-12-08] MEDS ORDERED: METHADONE 10 MG TAB PO SCH (09:00)
--- NOTE | 2016-12-08 10:22 | P.PN ---
Subjective Patient is seen in follow-up for acute kidney injury. His baseline creatinine is near 1 and was elevated at 2.5 on admission. It is down to 1.32 today with IV hydration. Patient's currently being treated for influenza B virus. Dyspnea is improved. Continues to have a productive cough. No vomiting or diarrhea. Admits to good urine output. Vital signs are stable. General: The patient appeared well nourished and normally developed. HEENT: Head exam is unremarkable. Neck is without jugular venous distension. LUNGS: Rhonchi at bases. Breath sounds decreased. HEART: Rate and Rhythm are regular. First and second heart sounds normal. No murmurs, rubs or gallops. ABDOMEN: Abdominal exam reveals normal bowel sounds. Non-tender and non- distended. No evidence of peritonitis. EXTREMITITES: No clubbing, cyanosis, or edema. Objective - Vital Signs Vital signs: Vital Signs Temp 99.1 F 12/08/16 08:56 Pulse 75 12/08/16 08:56 Resp 18 12/08/16 08:56 BP 103/66 12/08/16 08:56 Pulse Ox 96 12/08/16 08:56 Intake & Output 12/07/16 12/08/16 12/08/16 18:59 06:59 18:59 Intake Total 2350 1625 Output Total 1125 2000 Balance 1225 -375 Weight 88 kg Intake: IV 2350 125 Magnesium Sulfate-D5w Pmx 200 1 gm In Dextrose/Water 1 100ml.bag @ 100 mls/hr IVPB Q1H RADHA Rx#: [id number] Sodium Chloride 0.9% 1, 1150 125 000 ml @ 150 mls/hr IV . Q6H40M RADHA Rx#:[id number] Sodium Chloride 0.9% 1, 1000 000 ml @ 999 mls/hr IV . Q1H1M ONE Rx#:[id number] Intake, IV Titration 1500 Amount Sodium Chloride 0.9% 1, 1500 000 ml @ 125 mls/hr IV . Q8H RADHA Rx#:[id number] Output: Urine 1125 2000 Other: Voiding Method Urinal Urinal Urinal # Voids 1 - Labs CBC & Chem 7: 12/08/16 07:33 12/08/16 07:33 Labs: Abnormal Lab Results - Last 24 Hours (Table) 03/30/17 03/30/17 Range/Units 07:33 07:33 WBC 2.5 L (3.8-10.6) k/uL RBC 3.79 L (4.30-5.90) m/uL Hgb 12.2 L (13.0-17.5) gm/dL Hct 36.3 L (39.0-53.0) % Plt Count 73 L (150-450) k/uL Lymphocytes # 0.7 L (1.0-4.8) k/uL Creatinine 1.32 H (0.66-1.25) mg/dL Calcium 7.8 L (8.4-10.2) mg/dL Assessment and Plan Plan: Assessment: #1. Nonoliguric acute kidney injury mostly prerenal in nature secondary to hypotension and poor oral intake. Improving. Creatinine was 2.5 on admission and is down to 1.3 to today. Urinalysis does reveal 1+ proteinuria which can be nonspecific in the setting for acute kidney injury. No hematuria noted. No evidence of hydronephrosis on renal ultrasound. #2. Hypotension due to hypovolemia. Improved. #3. Influenza type B. #4. Metabolic acidosis secondary to acute kidney injury and IV fluids. Resolved. #5. Hyperphosphatemia secondary to acute kidney injury. Expect improvement with improved renal function. #6. Hypomagnesemia. Plan: Decrease rate of normal saline to be run at 50 mL an hour. Maintain oral sodium bicarbonate supplementation. Avoid nephrotoxic agents and hypotensive episodes. Antihypertensives held. Continue to monitor renal function and urine output. Replace magnesium. 1 g today. Repeat electrolytes in the morning.
[2016-12-08] MEDS ORDERED: MAGNESIUM SULFATE-D5W PMX 1 GM in DEXTROSE/WATER 1 100ML.BAG IVPB ONE (11:00)
--- NOTE | 2016-12-08 13:03 | P.PN ---
Subjective Progress note dated 12/08/2016 61-year-old male who was brought into the emergency department with complaints of fatigue and upper respiratory infection. Admitted feeling well for about a month or so prior to admission and tested positive for influenza B. He was placed on Levaquin and Tamiflu and transferred to the ICU. The patient was transferred out of the ICU after 24 hours. Doing very well and on the floor. No major complaints or issues. The patient does have a previous history of his pertussis exposure and has some chronic changes on his CAT scan suggestive of asbestos exposure. Nothing that looks serious so. I did tell him though that his physicians we'll have to watch his area very carefully. The patient was initially admitted to the fifth floor transferred up to the ICU and was transferred back down to the fifth floor. Again doing much better. Objective - Vital Signs Vital signs: Vital Signs Temp 99.1 F 12/08/16 08:56 Pulse 75 12/08/16 08:56 Resp 18 12/08/16 08:56 BP 103/66 12/08/16 08:56 Pulse Ox 96 12/08/16 08:56 Intake & Output 12/07/16 12/08/16 12/08/16 18:59 06:59 18:59 Intake Total 2350 1625 Output Total 1125 2000 Balance 1225 -375 Weight 88 kg Intake: IV 2350 125 Magnesium Sulfate-D5w Pmx 200 1 gm In Dextrose/Water 1 100ml.bag @ 100 mls/hr IVPB Q1H RADHA Rx#: [id number] Sodium Chloride 0.9% 1, 1150 125 000 ml @ 150 mls/hr IV . Q6H40M RADHA Rx#:[id number] Sodium Chloride 0.9% 1, 1000 000 ml @ 999 mls/hr IV . Q1H1M ONE Rx#:[id number] Intake, IV Titration 1500 Amount Sodium Chloride 0.9% 1, 1500 000 ml @ 125 mls/hr IV . Q8H RADHA Rx#:[id number] Output: Urine 1125 2000 Other: Voiding Method Urinal Urinal Urinal # Voids 1 - Exam No acute distress, oriented 3. HEENT examination is grossly unremarkable. Mucous membranes are moist. No oral lesions. Neck supple. Full range of motion. No adenopathy. No thyromegaly. Neck veins are flat. Cardio vascular examination reveals distant heart sounds. S1 and S2 normal. No murmur noted. Lungs reveal relatively clear breath sounds. No wheezes or rhonchi. No crackles. Abdomen soft bowel sounds are heard. Extremities are intact. - Labs CBC & Chem 7: 12/08/16 07:33 12/08/16 07:33 Labs: Abnormal Lab Results - Last 24 Hours (Table) 12/08/16 12/08/16 Range/Units 07:33 07:33 WBC 2.5 L (3.8-10.6) k/uL RBC 3.79 L (4.30-5.90) m/uL Hgb 12.2 L (13.0-17.5) gm/dL Hct 36.3 L (39.0-53.0) % Plt Count 73 L (150-450) k/uL Lymphocytes # 0.7 L (1.0-4.8) k/uL Creatinine 1.32 H (0.66-1.25) mg/dL Calcium 7.8 L (8.4-10.2) mg/dL Assessment and Plan (1) Acute kidney injury Status: Acute (2) Influenza Status: Acute (3) Pulmonary asbestosis Status: Acute (4) Acute renal failure Status: Acute Plan: Plan dated 12/07/2016 The patient probably does not have bacterial pneumonia. Does have been following as a B. He's currently on Tamiflu. I will review his medications x- rays and labs. He probably does have chronic asbestos exposure some asbestos associated lung disease. Mostly pleural thickening and plaques. The patient stable hemodynamically currently. He did respond to fluids. We'll watch him here in the ICU. Later taking move out to the general medical floor. Nephrology should be consulted if they have and ready been. Additional recommendations suggestions are forthcoming. No pain medication at this time. Plan dated 12/08/2016 The patient seemed be doing much better. The patient probably does not have bacterial pneumonia but I'll only influenza B. The patient does have some changes on CAT scan suggestive of prior asbestos exposure. This will need to be watched very closely by his primary doctor and I told him that I be happy to see him in the outpatient setting just observe these areas. Nothing to suggest anything ominous like mesothelioma or bronchogenic carcinoma. Nephrology was consulted for his acute kidney injury. His meds medications laboratory data and x-rays are reviewed. Additional recommendations are made. Time with Patient: Less than 30
--- NOTE | 2016-12-08 14:57 | XR ---
EXAMINATION TYPE: XR chest 2V DATE OF EXAM: 12/08/2016 2:49 PM COMPARISON: 12/06/2016 HISTORY: Shortness of breath TECHNIQUE: Frontal and lateral views of the chest are obtained. FINDINGS: Scattered senescent parenchymal changes noted. Hyperinflation compatible with COPD. Stable pleural-parenchymal severe right lateral lung base. Persistent pneumonia not excluded. Heart size is stable. Mediastinal structures are stable and grossly unremarkable. No evidence for hilar prominence. Degenerative changes dorsal spine. IMPRESSION: 1. Stable pleural-parenchymal severe right lateral lung base. Persistent pneumonia not excluded.
[2016-12-08 15:09] VITALS: BP 109/80; TEMP 97.3
[2016-12-08] MEDS ORDERED: OSELTAMIVIR 75 MG CAP PO SCH (21:00)
--- NOTE | 2016-12-09 16:42 | P.DS ---
Providers Date of admission: 12/06/16 23:09 Expected date of discharge: 12/08/16 Attending physician: Reji Leon Consults: 12/07/16 00:46 Consult Physician Stat Consulting Provider: Lalo South Consult Reason/Comments: icu management Do you want consulting provider notified?: Yes 12/07/16 09:41 Consult Physician Stat Consulting Provider: Britton Neil Consult Reason/Comments: elevated creatinine Do you want consulting provider notified?: Already Contacted Primary care physician: Diego Gudino [facility] Course: Final Diagnoses: 1. acute influenza B with SIRS; pneumonia ruled out per pulmonary 2. Acute renal failure, prerenal secondary to hypotension and poor oral intake , improving. Hydronephrosis ruled out per ultrasound. Baseline creatinine near 1. 3. Pulmonary asbestosis 4. Hypotension secondary to hypovolemia 5. History of hypertension. [place] inhibitor discontinued secondary to patient having hypotension and renal function. 6. History of hepatitis C. Patient needs to follow-up with GI outpatient for workup-outpatient PCP to refer. 7. Hypomagnesemia Hospital course: This is a 61-year-old gentleman admitted with fatigue, upper respiratory symptoms, acute influenza B and acute renal failure. Maintained on Tamiflu, received IV fluid resuscitation in the ICU for 24 hours then transferred out to Gen. medical floor. Pneumonia ruled out per pulmonary with antibiotic discontinued. CT showed up abestosis. Evaluated by nephrology. [place] inhibitor discontinued secondary to renal function and hypotension. Significant clinical improvement. Patient has been cleared for discharge by all consults. Patient is being discharged home in a stable condition with guarded prognosis. The impression and plan of care has been dictated as directed. : I performed a H&P examination of this patient and discussed the same with the dictator. I agree with the dictator's note. Any additional findings/opinions/ etc. will be noted. Patient Condition at Discharge: Stable Plan - Discharge Summary New Discharge Prescriptions: Doxycycline Monohydrate [Monodox] 100 mg PO Q12HR #10 cap Famotidine [Pepcid] 20 mg PO DAILY #30 tab Nicotine 14Mg/24Hr Patch [Habitrol] 1 patch TRANSDERM DAILY #30 patch Oseltamivir [Tamiflu] 75 mg PO Q12HR #6 cap Sodium Bicarbonate Tab 650 mg PO BID #20 tab Discharge Medication List Methadone [Dolophine] 40 mg PO DAILY 09/03/14 [History] Diazepam [Valium] 10 mg PO DAILY 12/08/15 [History] Cetirizine HCl 10 mg PO DAILY 12/06/16 [History] Doxycycline Monohydrate [Monodox] 100 mg PO Q12HR #10 cap 12/08/16 [Rx] Famotidine [Pepcid] 20 mg PO DAILY #30 tab 12/08/16 [Rx] Nicotine 14Mg/24Hr Patch [Habitrol] 1 patch TRANSDERM DAILY #30 patch 12/08/16 [ Rx] Oseltamivir [Tamiflu] 75 mg PO Q12HR #6 cap 12/08/16 [Rx] Sodium Bicarbonate Tab 650 mg PO BID #20 tab 12/08/16 [Rx] Follow up Appointment(s)/Referral(s): Terese Cortez MD [Primary Care Provider] - 12/14/16 1:10 pm Lalo South DO [Doctor of Osteopathic Medicine] - 12/23/16 1:15 pm Britton Neil DO [STAFF PHYSICIAN] - 12/13/16 2:00 pm Ambulatory/Diagnostic Orders: Complete Blood Count w/diff [LAB.AMB] Time Frame: 3 Days, Location: Determined By Patient Patient Instructions/Handouts: Famotidine (By mouth), Doxycycline (By mouth), Oseltamivir (By mouth), Sodium Bicarbonate (By mouth), How to Stop Smoking (DC) , Acute Kidney Injury (DC), Influenza (DC), Community Acquired Pneumonia (DC) Care Plan Goals (MU): Increase activity as tolerated. Bloodwork (CBC/CMP) next week with Dr. Cortez Discharge Disposition: HOME SELF-CARE
== END 2016-12-08 16:45 | disposition home or self-care (01) | DRG 193 ==
LOC: EC 17:41 → 5MS5E 23:09 → 6ICU 12-07 01:37 → 5MS5E 12-07 22:30
PROVIDERS: ADMIT Internal Medicine; ATTEND Internal Medicine
DX: J10.1 Influenza due to other identified influenza virus with other respiratory manifestations (principal); N17.0 Acute kidney failure with tubular necrosis; E87.2 Acidosis; I95.9 Hypotension, unspecified; E83.42 Hypomagnesemia; E83.39 Other disorders of phosphorus metabolism; E86.1 Hypovolemia; I10 Essential (primary) hypertension; B19.20 Unspecified viral hepatitis C without hepatic coma; J61 Pneumoconiosis due to asbestos and other mineral fibers; T46.4X5A Adverse effect of angiotensin-converting-enzyme inhibitors, initial encounter; R80.9 Proteinuria, unspecified; F17.210 Nicotine dependence, cigarettes, uncomplicated; M54.9 Dorsalgia, unspecified; R53.1 Weakness; F41.0 Panic disorder [episodic paroxysmal anxiety]; F41.9 Anxiety disorder, unspecified; Z71.6 Tobacco abuse counseling; Z87.01 Personal history of pneumonia (recurrent); Z90.49 Acquired absence of other specified parts of digestive tract; Z87.448 Personal history of other diseases of urinary system; Z88.0 Allergy status to penicillin; Z86.19 Personal history of other infectious and parasitic diseases; Z79.891 Long term (current) use of opiate analgesic; Z77.090 Contact with and (suspected) exposure to asbestos; Z79.899 Other long term (current) drug therapy; Z80.0 Family history of malignant neoplasm of digestive organs; Z86.14 Personal history of Methicillin resistant Staphylococcus aureus infection
CPT/HCPCS: 36415; 71020; 71250; 74000; 76770; 80048; 80053; 81001; 82150; 82550; 82553; 83605; 83690; 83735; 83880; 84100; 84484; 85025; 85027; 85610; 85730; 87040; 87502; 93005; 94640; 96360; 99284; 99285

== ENCOUNTER → 2017-01-09 | Outpatient (CLI) | payer MEDICARE ==
[2017-01-09 14:20] LABS: Appearance,Urine Clear (Clear); Bilirubin,Urine Negative (Negative); Glucose,Urine (UA) Negative (Negative); Ketones,Urine Negative (Negative); Leukocyte Esterase,Urine Negative (Negative); Nitrite,Urine Negative (Negative); Protein,Urine Negative (Negative); Specific Gravity,Urine 1.015 (1.001-1.035); UA Billing (MACRO vs. MICRO) CHEM; Urobilinogen,Urine <2.0 mg/dL (<2.0)
[2017-01-09 14:24] LABS: ALT 45 U/L (21-72); AST 34 U/L (17-59); Alkaline Phosphatase 81 U/L (38-126); Anion Gap 12 mmol/L; Blood Urea Nitrogen 23 mg/dL (9-20); Calcium 9.7 mg/dL (8.4-10.2); Carbon Dioxide 27 mmol/L (22-30); Chloride 102 mmol/L (98-107); Glucose 147 mg/dL (74-99); Non-African American GFR(MDRD) >60 (>60 ml/min/1.73 sqM); Potassium 4.2 mmol/L (3.5-5.1); Sodium 141 mmol/L (137-145); Total Bilirubin 0.8 mg/dL (0.2-1.3); Total Protein 7.9 g/dL (6.3-8.2)
[2017-01-09 14:57] LABS: Creatinine,Urine Random 150.9 mg/dL
== END | disposition home or self-care (01) ==
LOC: LABWHC1 13:30
PROVIDERS: ATTEND Nurse Practitioner Family
DX: N17.9 Acute kidney failure, unspecified (principal); D64.9 Anemia, unspecified; N39.0 Urinary tract infection, site not specified
CPT/HCPCS: 36415; 80053; 81003; 82570; 84156

== ENCOUNTER → 2017-09-08 | Outpatient (CLI) | payer MEDICARE ==
--- NOTE | 2017-09-08 15:26 | CT ---
EXAMINATION TYPE: CT chest w con DATE OF EXAM: 09/08/2017 COMPARISON: CT chest December 06, 2016 HISTORY: Right axillary lump/mass CT DLP: 376.6 mGycm. Automated Exposure Control for Dose Reduction was Utilized. TECHNIQUE: CT scan of the thorax is performed following with IV Contrast, patient injected with 80 m L of Visipaque 320. FINDINGS: LUNGS: There is mild underlying emphysematous change with mild apical pleural/parenchymal scarring. T here is calcified pleural thickening in the posterior lower lungs bilaterally redemonstrated. Correla te for asbestos exposure. There is adjacent right basilar linear scarring redemonstrated. Tracheobron chial tree is patent. No new nodule or mass is present. MEDIASTINUM: There are no greater than 1 cm hilar or mediastinal lymph nodes. No cardiomegaly or pe ricardial effusion is seen. Small hiatal hernia is redemonstrated. Coronary artery calcification is again seen which is noted marker for coronary artery disease. OTHER: Small degree of bilateral gynecomastia is present. BB is placed at level palpable abnormality right axilla on axial image 13. There is no worrisome solid or cystic mass or fluid collection is see n at this level below the axillary vessels. Visualized liver is diffusely hypodense consistent with f atty infiltration. Cholecystectomy clips are redemonstrated. IMPRESSION: No worrisome right axillary mass or fluid collection. No significant change from prior CT
== END | disposition home or self-care (01) ==
LOC: RADCTMAIN 13:45
PROVIDERS: ATTEND Surgery
DX: R22.9 Localized swelling, mass and lump, unspecified (principal)
CPT/HCPCS: 82565; 84520; 71260; 36415; Q9967

== ENCOUNTER → 2019-01-21 | Outpatient (CLI) | payer MEDICARE ==
[2019-01-21 14:31] LABS: HCT 42.5 % (39.0-53.0); HGB 13.8 gm/dL (13.0-17.5); MCH 30.7 pg (25.0-35.0); MCHC 32.4 g/dL (31.0-37.0); MCV 94.8 fL (80.0-100.0); Mean Platelet Volume 6.4; Platelet Count 199 k/uL (150-450); RBC 4.49 m/uL (4.30-5.90); RDW 13.1 % (11.5-15.5); WBC 7.1 k/uL (3.8-10.6)
--- NOTE | 2019-01-21 15:02 | XR ---
EXAMINATION TYPE: XR chest 2V DATE OF EXAM: 01/21/2019 COMPARISON: Prior chest x-ray dated 12/08/2016 HISTORY: Fatigue, hypertension and recurrent cough TECHNIQUE: Frontal and lateral views of the chest are obtained. FINDINGS: Abnormal increased density at the right lung base is a stable chronic finding, there are p leural-parenchymal changes as on prior exam. No evident pneumothorax or pleural effusion. Cardiac med iastinal silhouette, pulmonary vascularity and ricki are stable. Surgical clips present in the right u pper abdomen. Prominent lung lines are compatible with underlying COPD. There are calcified pleural p laques present. IMPRESSION: Stable abnormal chest x-ray, correlate for possible asbestos related disease
[2019-01-21 19:23] LABS: Albumin 4.6 g/dL (3.80-4.90); Albumin/Globulin Ratio 2.19 (1.60-3.17); Anion Gap 11.4 mmol/L (4.00-12.00); Calcium 9.5 mg/dL (8.7-10.3); Carbon Dioxide 23.6 mmol/L (21.6-31.8); Globulin 2.1 g/dL (1.6-3.3); Potassium 4.1 mmol/L (3.5-5.5); Total Bilirubin 0.4 mg/dL (0.3-1.2); Total Protein 6.7 g/dL (6.2-8.2)
[2019-01-21 19:30] LABS: T4, Free (Free Thyroxine) 1.2 ng/dL (0.80-1.80)
== END | disposition home or self-care (01) ==
LOC: LABWHC1 13:36
PROVIDERS: ATTEND Internal Medicine
DX: R91.8 Other nonspecific abnormal finding of lung field (principal); R05 Cough; I10 Essential (primary) hypertension; R53.83 Other fatigue
CPT/HCPCS: 36415; 71046; 80053; 84439; 84443; 85027

== ENCOUNTER → 2019-07-08 | Outpatient (CLI) | payer MEDICARE ==
[2019-07-08 14:49] LABS: HCT 40.7 % (39.0-53.0); HGB 13.6 gm/dL (13.0-17.5); MCHC 33.3 g/dL (31.0-37.0); MCV 95.9 fL (80.0-100.0); Mean Platelet Volume 5.8; Platelet Count 198 k/uL (150-450); RBC 4.24 m/uL (4.30-5.90); RDW 13.2 % (11.5-15.5); WBC 7.7 k/uL (3.8-10.6)
[2019-07-08 18:42] LABS: Albumin 4.4 g/dL (3.80-4.90); Albumin/Globulin Ratio 2.2 (1.60-3.17); Anion Gap 11.9 mmol/L (4.00-12.00); BUN/Creat Ratio 21.18 Ratio (12.00-20.00); Calcium 9.7 mg/dL (8.7-10.3); Carbon Dioxide 28.1 mmol/L (21.6-31.8); Potassium 4.8 mmol/L (3.5-5.5); Total Bilirubin 0.4 mg/dL (0.2-1.2); Total Protein 6.4 g/dL (6.2-8.2)
== END | disposition home or self-care (01) ==
LOC: LABWHC1 13:19
PROVIDERS: ATTEND Internal Medicine
DX: R53.83 Other fatigue (principal)
CPT/HCPCS: 36415; 80053; 82306; 82607; 84439; 84443; 85027

== ENCOUNTER → 2020-12-21 | Outpatient (CLI) | payer MEDICARE ==
[2020-12-21 19:30] LABS: African American GFR (CKD) 39.1 (60.0-200.0); Albumin 4.6 g/dL (3.80-4.90); Albumin/Globulin Ratio 2.19 (1.60-3.17); Anion Gap 10.9 mmol/L (4.00-12.00); Calcium 9.2 mg/dL (8.7-10.3); Carbon Dioxide 23.1 mmol/L (21.6-31.8); Globulin 2.1 g/dL (1.6-3.3); Non-African American GFR(CKD) 33.8 (60.0-200.0); Potassium 4.6 mmol/L (3.5-5.5); Total Bilirubin 0.4 mg/dL (0.2-1.2); Total Protein 6.7 g/dL (6.2-8.2)
[2020-12-21 19:38] LABS: T4, Free (Free Thyroxine) 1.3 ng/dL (0.80-1.80)
[2020-12-21 20:05] LABS: HCT 46.3 % (39.6-50.0); HGB 15.1 g/dL (13.0-17.0); MCH 31.3 pg (27.0-32.0); MCHC 32.6 g/dL (32.0-37.0); MCV 96.1 fL (80.0-97.0); Mean Platelet Volume 10.7 fL (9.5-12.2); Platelet Count 117 X 10*3/uL (140-440); RBC 4.82 X 10*6/uL (4.40-5.60); RDW 12.2 % (11.5-14.5); WBC 7.95 X 10*3/uL (4.50-10.00)
== END | disposition home or self-care (01) ==
LOC: LABWHC1 12:12
PROVIDERS: ATTEND Internal Medicine
DX: I10 Essential (primary) hypertension (principal); R53.82 Chronic fatigue, unspecified
CPT/HCPCS: 36415; 80053; 82306; 82607; 83036; 84439; 84443; 85027

== ENCOUNTER → 2021-03-02 | Outpatient (CLI) | payer MEDICARE ==
--- NOTE | 2021-03-02 15:42 | US ---
EXAMINATION TYPE: US kidneys/renal and bladder DATE OF EXAM: 03/02/2021 COMPARISON: 12/07/2016 CLINICAL HISTORY: N18.32 chronic kidney stage 3. EXAM MEASUREMENTS: Right Kidney: 10.2 x 4.8 x 4.5 cm Left Kidney: 9.8 x 5.0 x 4.4 cm Right Kidney: No hydronephrosis or masses seen Left Kidney: No hydronephrosis or masses seen Bladder: wnl There is no evidence for hydronephrosis at this point in time. No nephrolithiasis is seen. No dangelo s are identified. The urinary bladder is anechoic. IMPRESSION: Unremarkable kidneys.
== END | disposition home or self-care (01) ==
LOC: RADUSWWP 15:05
PROVIDERS: ATTEND Internal Medicine Nephrology
DX: N18.32 Chronic kidney disease, stage 3b (principal)
CPT/HCPCS: 76770

== ENCOUNTER → 2021-03-03 | Outpatient (CLI) | payer MEDICARE ==
[2021-03-03 11:56] LABS: Appearance,Urine Clear (Clear); Bilirubin,Urine Negative (Negative); Blood,Urine Negative (Negative); Color,Urine Yellow; Glucose,Urine (UA) Negative (Negative); Ketones,Urine Negative (Negative); Leukocyte Esterase,Urine Negative (Negative); Nitrite,Urine Negative (Negative); PH, Urine 5.5 (5.0-8.0); Protein,Urine Trace (Negative); Specific Gravity,Urine 1.018 (1.001-1.035); Urobilinogen,Urine <2.0 mg/dL (<2.0)
[2021-03-03 12:10] LABS: Creatinine,Urine Random 174.3 mg/dL; Protein/Creatinine Ratio,Urine 0.092
[2021-03-03 14:26] LABS: Basophils # (A) 0.05 X 10*3/uL (0.00-0.10); Basophils % (A) 0.7 %; Eosinophils # (A) 0.24 X 10*3/uL (0.04-0.35); Eosinophils % (A) 3.4 %; HCT 48.6 % (39.6-50.0); HGB 16.1 g/dL (13.0-17.0); Lymphocytes # (A) 1.59 X 10*3/uL (0.90-5.00); Lymphocytes % (A) 22.5 %; MCH 32.4 pg (27.0-32.0); MCHC 33.1 g/dL (32.0-37.0); MCV 97.8 fL (80.0-97.0); Mean Platelet Volume 9.3 fL (9.5-12.2); Monocytes # (A) 0.51 X 10*3/uL (0.20-1.00); Monocytes % (A) 7.2 %; Neutrophils # (A) 4.66 X 10*3/uL (1.80-7.70); Neutrophils % (A) 65.9 %; Platelet Count 211 X 10*3/uL (140-440); RBC 4.97 X 10*6/uL (4.40-5.60); RDW 14.1 % (11.5-14.5); WBC 7.07 X 10*3/uL (4.50-10.00)
[2021-03-03 23:33] LABS: Ferritin 211.2 ng/mL (22.0-322.0)
[2021-03-03 23:51] LABS: % Iron Saturation 37.36 (15.00-50.00); African American GFR (CKD) 59.8 (60.0-200.0); Albumin 4.5 g/dL (3.80-4.90); Anion Gap 11.3 mmol/L (4.00-12.00); BUN/Creat Ratio 10.71 Ratio (12.00-20.00); Calcium 9.1 mg/dL (8.7-10.3); Carbon Dioxide 25.7 mmol/L (21.6-31.8); Magnesium 1.4 mg/dL (1.5-2.4); Non-African American GFR(CKD) 51.6 (60.0-200.0); Phosphorus 3.5 mg/dL (2.4-5.1); Potassium 4.1 mmol/L (3.5-5.5); Uric Acid 9.6 mg/dL (3.7-8.7)
== END | disposition home or self-care (01) ==
LOC: LABWHC1 11:13
PROVIDERS: ATTEND Internal Medicine Nephrology
DX: N39.0 Urinary tract infection, site not specified (principal); N18.32 Chronic kidney disease, stage 3b; N25.81 Secondary hyperparathyroidism of renal origin; E55.9 Vitamin D deficiency, unspecified; M10.9 Gout, unspecified; D64.9 Anemia, unspecified; R80.9 Proteinuria, unspecified
CPT/HCPCS: 36415; 80048; 81003; 82040; 82306; 82570; 82728; 83540; 83550; 83735; 83970; 84100; 84156; 84550; 85025

== ENCOUNTER 2021-07-31 14:21 | Observation (INO) | payer MEDICARE ==
[2021-07-31] MEDS ORDERED: SODIUM CHLORIDE 0.9% 500 ML 500 ML IV ONE (15:16)
--- NOTE | 2021-07-31 15:23 | ED ---
General Adult HPI - General Chief complaint: Dizziness Stated complaint: Keeps falling, shaky Time Seen by Provider: 07/31/21 15:05 Source: patient, family, RN notes reviewed, old records reviewed Mode of arrival: ambulatory Limitations: no limitations - History of Present Illness Initial comments: 66-year-old male patient presents to the emergency room with his son with complaints of one week of frequent falling, incontinence of bowel and bladder, generalized weakness and dizziness. Patient states that he has had a poor appetite over the past week. He states since the fall today complaining of upper back pain. States that the pain is 8 out of 10 and worse with movement. He states that he did not hit his head. Did not lose consciousness, did not hit his head. Son at bedside states that he has had 3 falls this week. Patient states that he does live with his girlfriend. -: week(s) (1) Location: back (upper ) Severity scale (1-10): 8 Quality: aching, other (stiff) Consistency: constant Improves with: none Worsens with: movement Associated Symptoms: loss of appetite, nausea/vomiting, weakness, other (falls, incontinent urine and stool, dizzy) Treatments Prior to Arrival: none - Related Data Home Medications Medication Instructions Recorded Confirmed Methadone [Dolophine] 10 mg PO QID PRN 09/03/14 07/31/21 Diazepam [Valium] 5 - 10 mg PO DAILY PRN 12/08/15 07/31/21 Azithromycin [Zithromax] 500 mg PO DAILY 07/31/21 07/31/21 Fluticasone/Umeclidin/Vilanter 1 inhalation INHALATION RT-DAILY 07/31/21 07/31/21 [Trelegy Ellipta 100-62.5-25] buPROPion SR [Wellbutrin SR] 150 mg PO DAILY 07/31/21 07/31/21 Allergies Allergy/AdvReac Type Severity Reaction Status Date / Time Penicillins Allergy Unknown Verified 07/31/21 17:06 Childhood Review of Systems ROS Statement: Those systems with pertinent positive or pertinent negative responses have been documented in the HPI. ROS Other: All systems not noted in ROS Statement are negative. Past Medical History Past Medical History: Hypertension, Liver Disease Additional Past Medical History / Comment(s): HEP C; HX OF DIALYSIS PER PT, NOW OFF. History of Any Multi-Drug Resistant Organisms: MRSA Date of last positivie culture/infection: 2007 MDRO Source:: Blood/Bone Past Surgical History: Cholecystectomy, Hernia Repair, Tonsillectomy Additional Past Surgical History / Comment(s): COLONOSCOPY. Umbilical and Ingu inal surgery x4 Past Anesthesia/Blood Transfusion Reactions: No Reported Reaction Past Psychological History: Anxiety, Panic Disorder Smoking Status: Current some day smoker Past Alcohol Use History: Daily Past Drug Use History: None Reported - Past Family History Mother Family Medical History: Cancer Additional Family Medical History / Comment(s): of colon CA Father Family Medical History: Cancer Additional Family Medical History / Comment(s): Colostomy from colon CA General Exam Limitations: no limitations General appearance: alert, in no apparent distress Head exam: Present: atraumatic, normocephalic, normal inspection Eye exam: Present: normal appearance, EOMI. Absent: scleral icterus, conjunctival injection, nystagmus, periorbital swelling, periorbital tenderness ENT exam: Present: normal exam, normal oropharynx, mucous membranes moist Neck exam: Present: normal inspection, full ROM. Absent: tenderness, meningismus, lymphadenopathy, thyromegaly Respiratory exam: Present: rales. Absent: respiratory distress, stridor, chest wall tenderness, accessory muscle use Cardiovascular Exam: Present: regular rate, normal rhythm GI/Abdominal exam: Present: distended, diminished bowel sounds. Absent: tenderness, guarding, rebound, rigid Extremities exam: Present: full ROM, normal capillary refill, other (Dried stool down the right lower leg). Absent: tenderness, pedal edema, joint swelling, calf tenderness Back exam: Present: normal inspection. Absent: tenderness, CVA tenderness (R), CVA tenderness (L), paraspinal tenderness, vertebral tenderness, rash noted Expanded Back exam: Negative Straight Leg Raising: Left, Right Neurological exam: Present: alert, oriented X3 Psychiatric exam: Present: normal affect, normal mood Skin exam: Present: warm, dry. Absent: cyanosis, diaphoretic Course Vital Signs 07/31/21 07/31/21 07/31/21 14:32 18:00 18:56 Temperature 97.4 F L Pulse Rate 66 58 L 56 L Respiratory 18 18 18 Rate Blood Pressure 173/98 173/105 183/103 O2 Sat by Pulse 93 L 93 L 94 L Oximetry EKG Findings - EKG Results: EKG: sinus rhythm (Ventricular rate of 64, ME interval 0.158, QRS 0.68, QTc 0.472) Medical Decision Making - Medical Decision Making 66-year-old male patient, alert and oriented 4, presents to the emergency room with his family member complaining of generalized weakness with frequent falls this week. Patient states he has been having some dizziness generalized weakness decreased appetite and has fallen 3 times this week. He states that he does have left shoulder pain and rib pain. He feels like his whole body aches. He states that he has been incontinent of bowel and bladder. Patient has no focal neurological deficits. He has negative straight leg test laterally. He states he lives at home with his girlfriend. X-ray shows patchy infiltrate right lower lobe which is not adversely change from an old exam. CT of brain and C-spine shows cerebral atrophy with no intracranial abnormality. Spondylitic changes in the lower cervical spine but no fractures. CT of the abdomen and pelvis shows no acute abnormality within the abdomen and pelvis. Lower lobe extensive calcified pleural plaque without change. There is no mesenteric edema, bowel obstruction. There is no evidence of leukocytosis, WBC count 7.1, hemoglobin and hematocrit are elevated at 19 and 58.1 respectively. Electrolytes are unremarkable. Coronavirus is negative. Patient will be admitted for frequent falls. Case discussed with Dr. Padilla - Lab Data Result diagrams: 07/31/21 16:33 07/31/21 16:33 Lab Results 07/31/21 07/31/21 07/31/21 Range/Units 16:33 16:33 16:33 WBC 7.1 (3.8-10.6) k/uL RBC 5.92 H (4.30-5.90) m/uL Hgb 19.0 H (13.0-17.5) gm/dL Hct 58.1 H* (39.0-53.0) % MCV 98.1 (80.0-100.0) fL MCH 32.2 (25.0-35.0) pg MCHC 32.8 (31.0-37.0) g/dL RDW 12.9 (11.5-15.5) % Plt Count 143 L (150-450) k/uL MPV 6.8 Neutrophils % 77 % Lymphocytes % 13 % Monocytes % 6 % Eosinophils % 2 % Basophils % 1 % Neutrophils # 5.5 (1.3-7.7) k/uL Lymphocytes # 1.0 (1.0-4.8) k/uL Monocytes # 0.4 (0-1.0) k/uL Eosinophils # 0.1 (0-0.7) k/uL Basophils # 0.0 (0-0.2) k/uL PT 11.1 (9.0-12.0) sec INR 1.0 (<1.2) APTT 20.6 L (22.0-30.0) sec Sodium 139 (137-145) mmol/L Potassium 3.9 (3.5-5.1) mmol/L Chloride 98 (98-107) mmol/L Carbon Dioxide 30 (22-30) mmol/L Anion Gap 11 mmol/L BUN 14 (9-20) mg/dL Creatinine 1.26 H (0.66-1.25) mg/dL Est GFR (CKD-EPI)AfAm 68 (>60 ml/min/1.73 sqM) Est GFR (CKD-EPI)NonAf 59 (>60 ml/min/1.73 sqM) Glucose 102 H (74-99) mg/dL Plasma Lactic Acid Juan Manuel (0.7-2.0) mmol/L Calcium 10.0 (8.4-10.2) mg/dL Total Bilirubin 1.1 (0.2-1.3) mg/dL AST 50 (17-59) U/L ALT 47 (4-49) U/L Alkaline Phosphatase 88 (38-126) U/L Troponin I (0.000-0.034) ng/mL Total Protein 7.8 (6.3-8.2) g/dL Albumin 4.8 (3.5-5.0) g/dL Coronavirus (PCR) (Not Detectd) 07/31/21 07/31/21 07/31/21 Range/Units 16:33 16:33 16:33 WBC (3.8-10.6) k/uL RBC (4.30-5.90) m/uL Hgb (13.0-17.5) gm/dL Hct (39.0-53.0) % MCV (80.0-100.0) fL MCH (25.0-35.0) pg MCHC (31.0-37.0) g/dL RDW (11.5-15.5) % Plt Count (150-450) k/uL MPV Neutrophils % % Lymphocytes % % Monocytes % % Eosinophils % % Basophils % % Neutrophils # (1.3-7.7) k/uL Lymphocytes # (1.0-4.8) k/uL Monocytes # (0-1.0) k/uL Eosinophils # (0-0.7) k/uL Basophils # (0-0.2) k/uL PT (9.0-12.0) sec INR (<1.2) APTT (22.0-30.0) sec Sodium (137-145) mmol/L Potassium (3.5-5.1) mmol/L Chloride (98-107) mmol/L Carbon Dioxide (22-30) mmol/L Anion Gap mmol/L BUN (9-20) mg/dL Creatinine (0.66-1.25) mg/dL Est GFR (CKD-EPI)AfAm (>60 ml/min/1.73 sqM) Est GFR (CKD-EPI)NonAf (>60 ml/min/1.73 sqM) Glucose (74-99) mg/dL Plasma Lactic Acid Juan Manuel 1.0 (0.7-2.0) mmol/L Calcium (8.4-10.2) mg/dL Total Bilirubin (0.2-1.3) mg/dL AST (17-59) U/L ALT (4-49) U/L Alkaline Phosphatase (38-126) U/L Troponin I 0.016 (0.000-0.034) ng/mL Total Protein (6.3-8.2) g/dL Albumin (3.5-5.0) g/dL Coronavirus (PCR) Not Detected (Not Detectd) Disposition Clinical Impression: Weakness, Falls frequently Disposition: ADMITTED IP TO THIS [facility] Decision Date: 07/31/21 Decision Time: 18:00
[2021-07-31 16:47] LABS: Basophils % (A) 1 %; Eosinophils # (A) 0.1 k/uL (0-0.7); Eosinophils % (A) 2 %; Lymphocytes % (A) 13 %; MCH 32.2 pg (25.0-35.0); MCHC 32.8 g/dL (31.0-37.0); MCV 98.1 fL (80.0-100.0); Mean Platelet Volume 6.8; Monocytes # (A) 0.4 k/uL (0-1.0); Monocytes % (A) 6 %; Neutrophils # (A) 5.5 k/uL (1.3-7.7); Neutrophils % (A) 77 %; Platelet Count 143 k/uL (150-450); RBC 5.92 m/uL (4.30-5.90); RDW 12.9 % (11.5-15.5); WBC 7.1 k/uL (3.8-10.6)
--- NOTE | 2021-07-31 17:04 | XR ---
EXAMINATION TYPE: XR chest 2V DATE OF EXAM: 07/31/2021 COMPARISON: 01/21/2019 HISTORY: Fall. Pain TECHNIQUE: 2 views FINDINGS: There is some patchy airspace infiltrate right lower lobe. Left lung is fairly clear. There is no heart failure. There are no hilar masses. There are chest leads. There is slight blunting of t he right posterior costophrenic angle. IMPRESSION: There is infiltrate and pleural thickening right lower lobe which is not adversely change d compared to old exam. No heart failure.
[2021-07-31 17:05] LABS: Albumin 4.8 g/dL (3.5-5.0); Potassium 3.9 mmol/L (3.5-5.1); Total Bilirubin 1.1 mg/dL (0.2-1.3); Total Protein 7.8 g/dL (6.3-8.2)
[2021-07-31 17:07] LABS: Prothrombin Time 11.1 sec (9.0-12.0)
[2021-07-31 17:22] LABS: Partial Thromboplastin Time 20.6 sec (22.0-30.0)
[2021-07-31 17:25] LABS: HCT 58.1 % (39.0-53.0)
--- NOTE | 2021-07-31 17:35 | CT ---
EXAMINATION TYPE: CT brain andrés loyd DATE OF EXAM: 07/31/2021 COMPARISON: None HISTORY: Falls, weakness CT DLP: 1493.9 mGycm Automated exposure control for dose reduction was used. There is diffuse cerebral atrophy. There is no mass effect nor midline shift. There is no sign of int racranial hemorrhage. There is patchy hypodensity in the periventricular white matter. Calvarium is i ntact. Skull base is intact. There is normal aeration of the mastoid sinuses. The cervical vertebra have normal alignment. Posterior elements are intact. There is degenerative dis c space narrowing at C5-6 and C6-7. Facet joints are intact. There is multilevel mild facet arthropat hy. Prevertebral soft tissues are intact. Skull base is intact. IMPRESSION: Cerebral atrophy. No acute intracranial abnormality. Cerebral atrophy is moderately severe for the pa tient's age. Spondylotic changes in the lower cervical spine. No fracture.
--- NOTE | 2021-07-31 17:43 | CT ---
EXAMINATION TYPE: CT abdomen pelvis wo con DATE OF EXAM: 07/31/2021 COMPARISON: 12/21/2015 HISTORY: Falls, weakness CT DLP: 773 mGycm Automated exposure control for dose reduction was used. Images obtained from the diaphragm to the floor the pelvis without contrast. There is extensive calcified pleural plaque at the posterior lung bases. There is pleural thickening and atelectasis and infiltrate posterior lung bases. Heart size is normal. There is no pericardial ef fusion. Liver spleen stomach appear intact. The bile ducts are nondilated. There are clips from cholecystecto my. There is no adrenal mass. Kidneys show normal size and contour. There is no hydronephrosis. Ureters a re not dilated. There is no retroperitoneal adenopathy. Bladder distends smoothly. There is no inguin al hernia. There is no free fluid in the pelvis. There is no mesenteric edema. There is no ascites or free air. There is no bowel obstruction. Appendi x is not seen. There is no sign of thickened appendix. Abdominal aorta is atheromatous. The lumbar vertebra appear intact. There is no compression fracture. There are spondylotic changes. T he bony pelvis is intact. There is joint space narrowing. IMPRESSION: No acute abnormality within the abdomen pelvis. Lower lobe extensive calcified pleural plaque and pleural thickening without change. Basilar pulmonar y mild infiltrates unchanged. No acute abnormality within the abdomen pelvis.
[2021-07-31] MEDS ORDERED: NALOXONE 0.4 MG/ML 1 ML VIAL IV PRN (18:06)
[2021-07-31] MEDS ORDERED: SODIUM CHLORIDE 0.9% 1,000 ML IV SCH (18:15)
[2021-07-31] MEDS: METHADONE 10 MG TAB PO PRN (21:54)
--- NOTE | 2021-07-31 22:37 | HP ---
HISTORY AND PHYSICAL DATE OF SERVICE: 07/31/2021. CHIEF COMPLAINTS: Dizziness, weakness, falls. HISTORY OF PRESENT ILLNESS: This 66-year-old gentleman with a past medical history of hypertension, history of liver disease, history of hepatitis C, history of dialysis per patient, history of MRSA, history of cholecystomy, being followed by Dr. Cortez in the outpatient setting was complaining of falls. The patient became increasingly weak and tired and weak and shaky and the patient is falling. There is no history of any fever, rigor or chills at this time. The admission showed elevated hematocrit. Otherwise, LFTs are within normal limits. Ammonia is not available. Patient admitted to the hospital for further evaluation and treatment. There is no history of fever, rigors, chills at this time. The patient also had multiple evaluations including abdominal and pelvis CAT scan which was reviewed personally by me and showed extensive pleural plaques. Otherwise some basilar pulmonary infiltrates also noted. The chest x-ray which was again reviewed personally with me showed some increased bronchovascular markings and a CT scan of the brain was also done which showed a small tubular atrophy, atrophy was thought to be moderately severe compared to the patient's age. PAST MEDICAL HISTORY: Past medical history of hypertension, history of liver disease, hepatitis C, history of dialysis, history of MRSA. MEDICATIONS: Admission home medications are: Fluticasone, Ellipta, bupropion, Zithromax, Dolophine, and Valium. Doses reviewed. ALLERGIES: PENICILLIN. FAMILY HISTORY: Family history of colon cancer in the family. SOCIAL HISTORY: History of alcohol intake, 3-4 and history of smoking. History of anxiety, panic disorder. REVIEW OF SYSTEMS: ENT: No diminished vision. No diminished hearing. Cardiovascular: No angina. Respiratory: As mentioned earlier. GI: As mentioned earlier. no dysuria or hematuria. Nervous system: No numbness, no weakness. Allergy/Immunology: No asthma or hayfever. Musculoskeletal: As mentioned earlier. Hematology/oncology: No history of anemia. Endocrine: As mentioned earlier. Constitutional: As mentioned earlier. Dermatology: Negative. Rheumatology: Negative. Psychiatric: As mentioned earlier. PHYSICAL EXAMINATION: Alert and oriented times three. Pulse 61, blood pressure 177/90, respiration 18, temperature 97.9, pulse ox 98% on room air. HEENT: Conjunctivae normal. Oral mucosa. Neck is no JVD. Cardiovascular: S1, S2 muffled. Respiration: Breath sounds diminished in the bases. A few scattered rhonchi and crackles. Abdomen: Soft. Legs are no edema. No swelling. Diffusely weak and weakened tremors and increased tone also present. LABS: WBC 7.1, hemoglobin 19 and creatinine is 1.26. The baseline labs are fluctuating. ASSESSMENT: 1. Gait dysfunction and change in mental status, possibly acute metabolic encephalopathy secondary to ETOH. 2. 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 3. Acute Parkinson's and gait dysfunction. 4. History of falls and gait dysfunction. 5. Increased creatinine with acute renal failure and dehydration. 6. Polycythemia. 7. Mild thrombocytopenia. 8. History of hypertension. 9. History of chronic liver disease. 10.History of hepatitis C. 11.Remote history of hemodialysis apparently. 12.History of MRSA. 13.History of cholecystectomy. 14.History of colonoscopy. 15.History of anxiety. 16.History of panic disorder. 17.History nicotine dependence. 18.FULL CODE. RECOMMENDATIONS AND DISCUSSION: This 66-year-old gentleman who presented with multiple complex medical issues, we will monitor the patient closely, continue the current medications. We will obtain [facility] protocol. We will monitor blood pressure medication closely. Initiate clonidine and I would also recommend a neurology consultation for possible evaluation for the possible Parkinson's and guarded prognosis because of the multiple complex medical issues. Further recommendations to follow. A copy of dictation being forwarded to Dr. Cortez who is the primary physician. We will obtain a social work consultation to evaluate the home situation PT OT also and consider possible ECF rehab also. JUSTINO / STEPHANIA: [id number] / MTDClaudy
[2021-07-31] MEDS: 1: MVI, ADULT NO.4 WITH VIT K 10 ML, THIAMINE 100 MG, FOLIC ACID 1 MG in SODIUM CHLORIDE IV SCH ×8 (22:42→22:43)
[2021-08-01 02:46] LABS: Appearance,Urine Clear (Clear); Bilirubin,Urine 1+ (Negative); Blood,Urine Negative (Negative); Color,Urine Yellow; Glucose,Urine (UA) Negative (Negative); Ketones,Urine 1+ (Negative); Leukocyte Esterase,Urine Negative (Negative); Mucus,Urine Moderate /hpf; Nitrite,Urine Negative (Negative); PH, Urine 6.5 (5.0-8.0); Protein,Urine 2+ (Negative); RBC,Urine 1 /hpf (0-5); WBC,Urine 2 /hpf (0-5)
[2021-08-01 02:51] LABS: Amphetamine Screen,Urine Not Detected (NotDetected); Barbiturate Screen,Urine Not Detected (NotDetected); Benzodiazepines Screen,Urine Detected (NotDetected); Cocaine Screen,Urine Not Detected (NotDetected); Methadone Screen, Urine Detected (NotDetected); Opiate Screen,Urine Not Detected (NotDetected); Oxycodone Screen, Urine Not Detected (NotDetected); Phencyclidine Screen,Urine Not Detected (NotDetected); Tricyclic Antidepressant,Urine Not Detected (NotDetected); Urn Cannabinoid Scrn Not Detected (NotDetected)
[2021-08-01] MEDS: SYMBICORT 80-4.5 MCG INHALER INHALATION SCH ×3 (07:13→20:12)
[2021-08-01] MEDS: IPRATROPIUM 0.5 MG/2.5 ML NEBU INHALATION SCH ×4 (07:13→20:12)
[2021-08-01] MEDS: MULTIVITAMINS, THERA 1 EACH TAB PO SCH (07:30)
[2021-08-01] MEDS: buPROPion SR 150 MG TABLET.ER PO SCH (07:30)
[2021-08-01 08:59] LABS: African American GFR (CKD) 78.4 (60.0-200.0); Anion Gap 14.7 mmol/L (4.00-12.00); BUN/Creat Ratio 9.29 Ratio (12.00-20.00); Blood Urea Nitrogen 10.4 mg/dL (9.0-27.0); Calcium 8.8 mg/dL (8.7-10.3); Carbon Dioxide 25.3 mmol/L (21.6-31.8); Non-African American GFR(CKD) 67.6 (60.0-200.0); Potassium 3.5 mmol/L (3.5-5.5)
[2021-08-01] MEDS ORDERED: AZITHROMYCIN 500 MG TAB PO SCH (09:00)
[2021-08-01 10:28] LABS: Basophils # (A) 0.02 X 10*3/uL (0.00-0.10); Basophils % (A) 0.4 %; Eosinophils # (A) 0.13 X 10*3/uL (0.04-0.35); Eosinophils % (A) 2.4 %; HCT 47.3 % (39.6-50.0); HGB 15.7 g/dL (13.0-17.0); Lymphocytes # (A) 1.03 X 10*3/uL (0.90-5.00); Lymphocytes % (A) 18.6 %; MCH 31.8 pg (27.0-32.0); MCHC 33.2 g/dL (32.0-37.0); MCV 95.9 fL (80.0-97.0); Mean Platelet Volume 9.4 fL (9.5-12.2); Neutrophils # (A) 3.83 X 10*3/uL (1.80-7.70); Neutrophils % (A) 69.2 %; Platelet Count 136 X 10*3/uL (140-440); RBC 4.93 X 10*6/uL (4.40-5.60); WBC 5.53 X 10*3/uL (4.50-10.00)
[2021-08-01] MEDS: METHADONE 10 MG TAB PO PRN ×2 (11:01→16:50)
--- NOTE | 2021-08-01 13:56 | P.CNNES ---
History of Present Illness Consult date: 08/01/21 Requesting physician: Arnold Barton Reason for Consult: Weakness, frequent falls, dizziness ?? Parkinson's History of Present Illness: This is a tele-neurology consultation performed today on 08/01/2021. Patient is a 66-year-old male came to the hospital yesterday at 2:21 PM with the family member, complaining of generalized weakness with frequent falls. Patient has been having some dizziness, generalized weakness, decreased appetite and has fallen 3 times in the last 10 days. Patient states that he fell on the ribs on the left side, and it is now hard for him to walk because of the pain. He has left shoulder and rib pain and whole-body aches. He feels her balance is getting worse. He feels he just loses balance and falls. He does not use any device at home. He lives with his girlfriend, but his girlfriend broke her hip and had been in the [facility] for last 1 month. Patient states that someone has to help him to the bathroom. He has difficulty controlling urine for the last 7-10 days. No problem prior. Denies any numbness or tingling of his hands or feet. No visual problems. He does we are reading glasses. No strokelike symptoms. Patient has 2 children, but they live in [place]. Patient denies passing out, although he does feel some lightheadedness. Patient states his ribs hurt, but no neck pain or low back pain. He denies diabetes. Drinks alcohol couple drinks about once a month. He has smoked half pack per day since age 24, cutback to smoking 4 cigarettes a day in the last couple weeks. Vital signs on arrival blood pressure 173/98, pulse rate 66, temperature 97.4. Patient's blood test shows WBC 7.1 hemoglobin 19.0, with elevated hematocrit 58.1. Platelets are 143. PT/PTT normal, electrolytes are normal, BUN 14, creatinine 1.26. Hepatic panel, troponin are normal. Ammonia is <9. UA shows negative nitrite, negative leukocyte esterase. Urine drug screen positive for methadone and benzodiazepine. Blood alcohol level negative. Bass virus PCR negative. Patient's last B12 is borderline 329 on 12/21/2020. TFTs normal. Patient's last A1c 5.4 on 12/21/2020. Computed tomography scan of the head showed cerebral atrophy. No acute intracranial abnormality. Cerebral atrophy is moderately severe for patient's age. CT of the cervical spine showed Spo ndylotic changes in the lower cervical spine. No fracture. CT of abdomen and pelvis without contrast shows no acute abnormality. Lower lobe extensive calcified pleural plaque and pleural thickening without change. Basilar pulmonary mild infiltrates unchanged. EKG shows normal sinus rhythm. Chest x- ray shows infiltrate and pleural thickening right lower lobe which is not adversely changed compared to old exam. Patient's home medications include methadone, diazepam 10 mg daily when necessa ry, Wellbutrin 150 mg daily, Zithromax. Review of Systems As mentioned detail in HPI. Denies any fever or chills. Denies any rash. Denies any abdominal pain. No nausea vomiting diarrhea. No double vision or loss of vision. No shortness of breath, wheezing or cough. All other review of systems reviewed and noncontributory. Past Medical History Past Medical History: Hypertension, Liver Disease Additional Past Medical History / Comment(s): HEP C; HX OF DIALYSIS PER PT, NOW OFF. History of Any Multi-Drug Resistant Organisms: MRSA Date of last positivie culture/infection: 2007 MDRO Source:: Blood/Bone Past Surgical History: Cholecystectomy, Hernia Repair, Tonsillectomy Additional Past Surgical History / Comment(s): COLONOSCOPY. Umbilical and Inguinal surgery x4 Past Anesthesia/Blood Transfusion Reactions: No Reported Reaction Past Psychological History: Anxiety, Panic Disorder Smoking Status: Current some day smoker Past Alcohol Use History: Daily Past Drug Use History: None Reported - Past Family History Mother Family Medical History: Cancer Additional Family Medical History / Comment(s): of colon CA Father Family Medical History: Cancer Additional Family Medical History / Comment(s): Colostomy from colon CA Medications and Allergies Home Medications Medication Instructions Recorded Confirmed Type Methadone [Dolophine] 10 mg PO QID PRN 09/03/14 07/31/21 History Diazepam [Valium] 5 - 10 mg PO DAILY PRN 12/08/15 07/31/21 History Azithromycin [Zithromax] 500 mg PO DAILY 07/31/21 07/31/21 History Fluticasone/Umeclidin/Vilanter 1 inhalation INHALATION RT-DAILY 07/31/21 07/31/21 History [Trelegy Ellipta 100-62.5-25] buPROPion SR [Wellbutrin SR] 150 mg PO DAILY 07/31/21 07/31/21 History Allergies Allergy/AdvReac Type Severity Reaction Status Date / Time Penicillins Allergy Unknown Verified 07/31/21 17:06 Childhood Physical Examination - Vital Signs Vital Signs: Vital Signs Temp Pulse Pulse Resp BP BP Pulse Ox 08/01/21 08:00 98.1 F 61 17 173/95 94 L 08/01/21 07:27 73 08/01/21 07:19 71 95 08/01/21 01:01 97.3 F L 60 16 149/91 92 L 07/31/21 20:34 97.9 F 61 15 177/98 92 L 07/31/21 18:56 56 L 18 183/103 94 L 07/31/21 18:00 58 L 18 173/105 93 L 07/31/21 14:32 97.4 F L 66 18 173/98 93 L Intake and Output 07/31/21 08/01/21 08/01/21 22:59 06:59 14:59 Intake Total 300 Output Total 76 150 700 Balance -76 150 -700 Intake: Intake, IV Titration 300 Amount Mvi, Adult No.4 with Vit 300 K 10 ml Thiamine 100 mg Folic Acid 1 mg In Sodium Chloride 0.9% 1,000 ml @ 50 mls/hr IV .BY DURATION [facility] Rx#: [id number] Output: Urine 150 700 Post Void Residual 76 Other: Weight 81.647 kg Patient is an elderly male, in no acute distress. Patient is alert awake oriented to time place and person. Patient states it is June and the year is . He knows Thanksgiving is just coming which is in July. He knows he is in [facility] in [facility]. Also knows name of the current president. Speech and language functions are normal. Attention, concentration and fund of knowledge is adequate. patient has slightly slow mentation, prolonged latency time to answer questions. On cranial examination, pupils are round and reacting to light, visual moran ar e full on confrontation, extraocular muscles are intact with no nystagmus. Face is symmetric, tongue protrudes to the midline. Palatal elevation and sensation normal, hearing and shoulder shrug normal, facial sensation normal. Shoulder shrug normal. On muscle strength testing, there is no pronator drift and the strength appears slightly weaker in the left arm about 4+ as compared to the right upper limb which is 5. In the lower limbs, patient able to lift the leg off the bed and give some endurance. Ankles are normal. Deep tendon reflexes are 2 in the upper limbs at biceps and brachioradialis, 3 at the knees and plantars downgoing bilaterally. Sensory to touch is equal with no neglect. Cerebellar function showed no ataxia for [id number] testing. He had tremors for [id number] testing bilaterally, left more than right. Tone appears normal. Bulk of muscles normal. I wanted patient to walk. He could not sit up by himself because of pain. We tried to help him get up, but he started having severe pain, therefore not further attempted. On general examination, there is no carotid bruit or murmur, S1-S2 audible. Abdomen is soft nontender. Chest is clear. Peripheral pulses are present. He has ecchymosis noted. Patient has a condom catheter in. No edema. Results - Laboratory Findings CBC and BMP: 08/01/21 05:37 08/01/21 05:37 Abnormal Lab Findings: Abnormal Labs 07/31/21 07/31/21 07/31/21 02:28 16:33 16:33 RBC 5.92 H Hgb 19.0 H Hct 58.1 H* Plt Count 143 L APTT 20.6 L Anion Gap Creatinine BUN/Creatinine Ratio Glucose Urine Protein 2+ H Urine Ketones 1+ H Urine Bilirubin 1+ H Urine Mucus Moderate H Urine Methadone Screen Detected H U Benzodiazepines Scrn Detected H 07/31/21 08/01/21 16:33 05:37 RBC Hgb Hct Plt Count APTT Anion Gap 14.70 H Creatinine 1.26 H BUN/Creatinine Ratio 9.29 L Glucose 102 H Urine Protein Urine Ketones Urine Bilirubin Urine Mucus Urine Methadone Screen U Benzodiazepines Scrn Assessment and Plan Assessment: * 66-year-old male admitted with frequent falls in the last 10 days. Exact cause of falls uncertain. Examination showed very subtle weakness of the left arm as compared to the right. Rule out CVA. * New onset urine control issues. Uncertain cause. * Hypertension * Tobacco use Plan: * Patient has presented with frequent falls. Exact cause is uncertain. Exam was limited because of significant pain. We will check MRI of the brain to rule out acute stroke. * Carotid Doppler. * B12, folate, MMA and B6 level. * PT and OT. * Rib x-ray, rule out fracture. * Dr. Rudy South Will resume neurology service from the morning.
--- NOTE | 2021-08-01 14:22 | XR ---
EXAMINATION TYPE: XR ribs bilateral DATE OF EXAM: 08/01/2021 COMPARISON: Chest x-ray yesterday HISTORY: Pain TECHNIQUE: 8 views FINDINGS: There is no pleural effusion or pneumothorax. There is a nondisplaced fracture of the later al left eighth rib. The other ribs appear intact. IMPRESSION: Acute fracture left eighth rib.
--- NOTE | 2021-08-01 16:06 | US ---
EXAMINATION TYPE: US carotid duplex BILAT DATE OF EXAM: 08/01/2021 COMPARISON: NONE CLINICAL HISTORY: Frequent falls, ?CVA. fal, possible cva EXAM MEASUREMENTS: RIGHT: Peak Systolic Velocity (PSV) cm/sec ----- Right CCA: 39.1 ----- Right ICA: 45.5 ----- Right ECA: 33.4 ICA/CCA ratio: 1.2 RIGHT: End Diastole cm/sec ----- Right CCA: 6.3 ----- Right ICA: 10.6 ----- Right ECA: 6.3 LEFT: Peak Systolic Velocity (PSV) cm/sec ----- Left CCA: 50.0 ----- Left ICA: 66.1 ----- Left ECA: 72.1 ICA/CCA ratio: 1.3 LEFT: End Diastole cm/sec ----- Left CCA: 7.3 ----- Left ICA: 19.5 ----- Left ECA: 9.5 VERTEBRALS (direction of flow): Right Vertebral: Antegrade Left Vertebral: Antegrade Rhythm: Normal Mild homogeneous plaque with no significant stenosis seen IMPRESSION: There is antegrade flow in the vertebral arteries. The images and measurements suggest less than 20% stenosis in both internal carotid arteries. Criteria for Assigning % of Stenosis / Diameter reduction (Estimation based on the indirect measurements of the internal carotid artery velocities (ICA PSV). 1. Normal (no stenosis)=ICA PSV < 125 cm/s: ratio < 2.0: ICA EDV<40 cm/s. 2. Less than 50% stenosis=ICA PSV < 125 cm/s: ratio < 2.0: ICA EDV<40 cm/s. 3. 50 to 69% stenosis=ICA PSV of 125 to 230 cm/s: ration 2.0 ? 4.0: ICA EDV 40-100 cm/s. 4. Greater than 70% stenosis to near occlusion= ICA PSV > 230 cm/s: ratio > 4.0: ICA EDV > 100 cm/s. 5. Near occlusion= ICA PSV velocities may be low or undetectable: variable ratio and ICA EDV. 6. Total occlusion=unable to detect flow.
[2021-08-01] MEDS: IBUPROFEN 200 MG TAB PO PRN (16:49)
[2021-08-01] MEDS: NICOTINE 14MG/24HR PATCH TRANSDERM SCH (16:53)
[2021-08-01] MEDS: ACETAMINOPHEN TAB 500 MG TAB PO PRN (17:23)
[2021-08-01] MEDS: 1: THIAMINE 100 MG, FOLIC ACID 1 MG in SODIUM CHLORIDE 0.9% 1,000 ML 2: SODIUM CHLORIDE IVPB SCH (17:25)
[2021-08-01 17:31] LABS: Folate, Serum 13.8 ng/mL (4.40-31.00)
--- NOTE | 2021-08-01 18:03 | PN ---
PROGRESS NOTE DATE OF SERVICE: 08/01/2021 This 66-year-old gentleman with a past medical history of multiple medical problems admitted with falls and weakness and possible Parkinson's. Patient also has been evaluated for possible stroke by neurology. Rib x-ray showed possible fracture of the left eighth rib. Patient closely monitored. Patient is confused. Patient also apparently had history of EtOH also. No chest pain. No palpitations. No fever. Past medical history reviewed. REVIEW OF SYSTEMS: Cardiovascular: No angina or palpitations. Respiration: As mentioned earlier. GI as mentioned earlier. : No dysuria. Nervous system: As mentioned earlier. CURRENT MEDICATIONS: Reviewed and include: Tylenol, Symbicort, Wellbutrin, folic acid, Atrovent, methadone p.r.n., multivitamins. Doses reviewed. PHYSICAL EXAMINATION: Patient is alert, oriented x3. Pulse 68, blood pressure 160/94, respiration 18, temperature 98.2, pulse ox 93% on room air. HEENT: Conjunctivae normal. NECK: No JVD. CARDIOVASCULAR: S1, S2 muffled. RESPIRATION: Breath sounds diminished in the bases. A few scattered rhonchi and crackles. ABDOMEN: Soft, nontender. LEGS are no edema. No swelling. LABS: WBC 5.3, hemoglobin 15.2, sodium 140, potassium 3.5. ASSESSMENT: 1. Gait dysfunction, change in mental status, possibly acute metabolic encephalopathy secondary to ETOH, multifactorial. 2. 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 3. Possible pneumonia aspiration. 4. Fall and left eighth rib fracture and pain. 5. Acute Parkinsonian gait dysfunction, possibly. 6. Bilateral extensive calcified pleural plaques and mild pulmonary infiltrate. 7. History of falls and gait dysfunction. 8. Increased creatinine with acute renal failure, dehydration, present on admission. 9. Polycythemia, present on admission possibly secondary to dehydration. 10.Mild thrombocytopenia. 11.History of hypertension. 12.History of chronic liver disease. 13.History of hepatitis C. 14.History of hemodialysis previously. 15.History of MRSA. 16.Gait dysfunction. 17.Cholecystectomy history. 18.History of colonoscopy. 19.History of anxiety. 20.History of panic disorder. 21.History of nicotine dependence. 22.FULL CODE. RECOMMENDATIONS AND DISCUSSION: I recommend to continue current medications, management and symptomatic treatment. Pain management. Otherwise PT, OT evaluation, possible ECF rehab. Continue the rest of the medications. Supplement vitamins. Fall precautions. Guarded prognosis because of multiple complex medical issues. Further recommendations to follow. I would also recommend D-dimer. CT scan of the brain showed significant dementia. Abdominal and pelvis CAT scan which I reviewed showed calcified extensive pleural plaques in the lower lobes. I would also recommend empiric antibiotics for pneumonia. MMODL / IJN: [id number] /
[2021-08-02] MEDS: METHADONE 10 MG TAB PO PRN ×4 (00:37→19:58)
[2021-08-02] MEDS: IBUPROFEN 200 MG TAB PO PRN ×3 (00:38→19:57)
[2021-08-02] MEDS: 1: THIAMINE 100 MG, FOLIC ACID 1 MG in SODIUM CHLORIDE 0.9% 1,000 ML 2: SODIUM CHLORIDE IVPB SCH (02:56)
[2021-08-02] MEDS: FOLIC ACID 1 MG TAB PO SCH (07:21)
[2021-08-02] MEDS: PANTOPRAZOLE 40 MG TABLET PO SCH (07:22)
[2021-08-02] MEDS: buPROPion SR 150 MG TABLET.ER PO SCH (07:22)
[2021-08-02] MEDS: MULTIVITAMINS, THERA 1 EACH TAB PO SCH (07:22)
[2021-08-02] MEDS: NICOTINE 14MG/24HR PATCH TRANSDERM SCH (07:23)
[2021-08-02] MEDS: THIAMINE 100 MG TAB PO SCH (07:23)
[2021-08-02] MEDS: IPRATROPIUM 0.5 MG/2.5 ML NEBU INHALATION SCH ×4 (07:54→21:36)
[2021-08-02] MEDS: SYMBICORT 80-4.5 MCG INHALER INHALATION SCH ×2 (07:54→21:36)
[2021-08-02 08:30] LABS: African American GFR (CKD) 76 (>60 ml/min/1.73 sqM); Anion Gap 7 mmol/L; Blood Urea Nitrogen 14 mg/dL (9-20); Carbon Dioxide 26 mmol/L (22-30); Chloride 103 mmol/L (98-107); Glucose 112 mg/dL (74-99); Non-African American GFR(CKD) 65 (>60 ml/min/1.73 sqM); Potassium 3.8 mmol/L (3.5-5.1); Sodium 136 mmol/L (137-145)
[2021-08-02 09:02] LABS: Basophils % (A) 0 %; Eosinophils # (A) 0.1 k/uL (0-0.7); Eosinophils % (A) 2 %; HCT 50.4 % (39.0-53.0); HGB 17.1 gm/dL (13.0-17.5); Lymphocytes # (A) 0.8 k/uL (1.0-4.8); Lymphocytes % (A) 11 %; MCH 33.1 pg (25.0-35.0); MCV 97.3 fL (80.0-100.0); Mean Platelet Volume 7.1; Monocytes # (A) 0.4 k/uL (0-1.0); Monocytes % (A) 5 %; Neutrophils # (A) 5.7 k/uL (1.3-7.7); Neutrophils % (A) 81 %; Platelet Count 143 k/uL (150-450); RBC 5.19 m/uL (4.30-5.90); RDW 12.8 % (11.5-15.5)
[2021-08-02] MEDS ORDERED: LORazepam 0.5 MG TAB PO STA (09:43)
--- NOTE | 2021-08-02 11:24 | MR ---
MR brain without contrast HISTORY: Frequent falls, question cerebrovascular accident, weakness, abnormal head CT Correlation the head CT 07/31/2021 Multiplanar multisequence imaging obtained of the brain Cortical atrophy is again noted. Periventricular confluent and scattered hyperintensities on inversio n recovery T2-weighted sequences are present to include pericallosal, subcortical white matter, isoin tense focus is present along the dural surface at the level of the sylvian fissure, coronal image #16 series 701, axial image 15 of series 501 and 601 which shows restricted diffusion and measures 2 cm in cephalocaudal dimension by 15 mm anterior posterior dimension by 12 mm transverse. No significant local mass effect. There is no hemorrhage or hydrocephalus, no additional restricted diffusion to sug gest subacute ischemia. Cerebellopontine angles, corpus callosum, pituitary, cervical medullary junct ion are within normal limits. The orbits are symmetric. There are expected vascular flow voids. Mild inflammatory changes present within the ethmoid air cells. Hyperintensities noted on inversion recove ry T2-weighted sequences within the katie. IMPRESSION: Age-related changes of atrophy and chronic small vessel ischemia. Favor meningioma slight ly superior to the temporal lobe on the left with some associated restricted diffusion possibly indic ating grade 2 to grade 3 ossification. Mild sinus disease.
[2021-08-02] MEDS: ACETAMINOPHEN TAB 500 MG TAB PO PRN (13:16)
--- NOTE | 2021-08-02 15:57 | PN ---
PROGRESS NOTE DATE OF SERVICE: 08/02/2021 This 66-year-old gentleman who was admitted with gait dysfunction and change in mental status is being closely monitored. The patient has severe dementia, possibly alcohol in nature. A brain MRI was done per neurology recommendations which showed age-related changes and chronic small-vessel ischemia, meningioma. Slightly superior temporal lobe was noted. A carotid Doppler showed less than 20% stenosis. A rib x-ray was done yesterday which showed acute fracture of the left 8th rib also. No chest pain. No palpitations. No fever. PHYSICAL EXAMINATION: Alert and oriented x3. Pulse 73, blood pressure 128/70, respiration 18, temperature 97.9, pulse ox 98% on room air. HEENT: Conjunctivae normal. NECK: No jugular venous distention. CARDIOVASCULAR: S1, S2 muffled. RESPIRATION: Breath sounds diminished at the bases. A few scattered rhonchi. ABDOMEN: Soft. NERVOUS SYSTEM: Diffusely weak and tremors also present. LABS: WBC 7, hemoglobin 17, platelets are 143. D-dimer is 0.7. Sodium is 136. ASSESSMENT: 1. Gait dysfunction and change in mental status, possibly acute metabolic encephalopathy secondary to ETOH, multifactorial. 2. 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 3. Possible pneumonia with aspiration. 4. Fall and left 8th rib fracture and pain. 5. Possible meningioma. 6. Mild hyponatremia. 7. Acute Parkinson's and gait dysfunction, possibly. 8. Bilateral extensive calcified pleural plaques and mild pulmonary infiltrate. 9. History of falls and gait dysfunction. 10.Increased creatinine with acute renal failure and dehydration, present on admission. 11.Polycythemia, present on admission, possibly secondary to dehydration. 12.Mild thrombocytopenia. 13.History of hypertension. 14.History of chronic liver disease. 15.History of hepatitis C. 16.History of hemodialysis previously. 17.History of MRSA. 18.History of gait dysfunction. 19.Cholecystectomy history. 20.Colonoscopy. 21.Anxiety. 22.Panic disorder. 23.History of nicotine dependence. 24.FULL CODE. RECOMMENDATIONS AND DISCUSSION: I recommend to continue current medications, continue with the monitoring, symptomatic treatment. PT/OT evaluation, possible ECF rehab. Ammonia is normal. Otherwise, neurology input appreciated. Will continue to monitor. Sensorium is definitely improved compared to admission. Fall precautions. Further recommendations to follow. MMODL / IJN: [id number] /
[2021-08-02] MEDS: cloNIDine HCL 0.1 MG TAB PO SCH ×2 (16:01→19:57)
--- NOTE | 2021-08-02 17:25 | P.PN ---
Subjective Progress Note Date: 08/02/21 I am seeing the patient for the first time during this admission for neurological management. Please refer to Dr. Dickinson's note for further details. Patient denies of any resting tremors. He said he needs to be truthful about his alcohol use in which he said he drinks about 3 shots of alcohol daily for th e past 2-3 years. He denies of any focal weakness, numbness. Objective - Vital Signs Vital signs: Vital Signs Temp 97.8 F 08/02/21 14:00 Pulse 66 08/02/21 16:12 Resp 18 08/02/21 14:00 BP 128/78 08/02/21 14:00 Pulse Ox 90 L 08/02/21 14:00 Intake & Output 08/01/21 08/02/21 08/02/21 18:59 06:59 18:59 Intake Total 1050 Output Total 1100 Balance -1100 1050 Intake: Intake, IV Titration 1050 Amount Sodium Chloride 0.9% 1, 900 000 ml @ 100 mls/hr IVPB .BY DURATION [facility] Rx#: [id number] Thiamine 100 mg Folic 150 Acid 1 mg In Sodium Chloride 0.9% 1,000 ml @ 50 mls/hr IVPB .BY DURATION [facility] Rx#: [id number] Output: Urine 1100 Other: Voiding Method External Catheter External Catheter - Exam GENERAL: The patient is lying in bed and is not in acute distress. NEUROLOGICAL: Higher mental function: The patient is awake, alert, oriented to self, place and time. Patient is following commands. No aphasia and no neglect. Cranial nerves: The pupils are round, equal and reactive to light and accommodation. Visual moran are full to confrontation throughout. Extraocular movement is intact no nystagmus is noted. Facial sensation is normal to touch throughout. The facial strength is normal throughout. Tongue is midline and moved [id number] without any difficulty. He has fasciculation of his tongue. No dysarthria is noted. Shoulder shrug is normal bilaterally. Motor: Gait is deferred. The strength is limited over left forearm because of pain from IV. bilateral hand gips are 5-. Otherwise 5 over 5 throughout. Normal tone and bulk. No resting tremor or increase tone at the wrists, elbows or knees. Cerebellum: Normal finger to nose heel to pierson bilaterally. He had end action tremor with finger to nose over the left. Sensation: Sensation is normal to touch throughout. Reflexes (right/left):2+ throughout except biceps are 3+ bilaterally and ankles are 1+ bilaterally. Plantars are mute bilaterally. WORK-UP: Vitamin B12 is 318 Serum folate is 13.8 Ammonia level is less than 9 Urine tox screen is positive for methadone and benzodiazepine. Serum alcohol was less than 10. Coronavirus PCR was not detected. Computed tomography scan of the head showed cerebral atrophy. No acute intracranial abnormality. Cerebral atrophy is moderately severe for patient's age. I could not personally review CT head or cervical spine since got a message of "Access not authorized". CT of the cervical spine showed Spondylotic changes in the lower cervical spine. No fracture. CT of abdomen and pelvis without contrast shows no acute abnormality. Lower lobe extensive calcified pleural plaque and pleural thickening without change. MRI the brain is reported as age-related images of atrophy and chronic small ves mel ischemia. Favor meningioma slightly superior to the temporal lobe on the left with some associated restrictED fusion possibly indicated grade 2 to grade 3 ossification. Mild sinus disease. I attempted to review the MRI but I got a message of "Access not authorized". Carotid duplex is reported as there is antegrade flow in the vertebral arteries. The images and measurements suggest less than 20% stenosis in both internal carotid arteries at. - Labs CBC & Chem 7: 08/02/21 07:57 08/02/21 07:57 Labs: Abnormal Lab Results - Last 24 Hours (Table) 08/01/21 08/02/21 08/02/21 Range/Units 17:11 07:57 07:57 Plt Count 143 L (150-450) k/uL Lymphocytes # 0.8 L (1.0-4.8) k/uL D-Dimer 0.70 H (<0.60) mg/L FEU Sodium 136 L (137-145) mmol/L Glucose 112 H (74-99) mg/dL Assessment and Plan Assessment: * 66-year-old male admitted with frequent falls in the last 10 days. Exact cause of falls uncertain but possibly has component of alcohol use (he said he drinks about 3 shots daily). MRI Brain is negative for reported acute or subacute ischemic stroke * Likely meningioma that is reported on MRI Brain * Low normal vitamin B12 318 (normal is 200-944). * New onset urine control issues. Uncertain cause. * Hypertension * Tobacco use * Alcohol use Plan: * Because of low normal vitamin B12 318 (normal is 200-944): started the patient on Vitamin B12 1000mcg daily. * The patient is on thiamine 100 mg 1 tablet daily as well as folic acid 1 mg daily started by the primary team * Vitamin B6 and methylmalonic acid are pending ordered by Dr. Dickinson. * Last hemoglobin A1c is 5.4 on 2020. I'll get a repeat hemoglobin A1c since it has been more than 6 months ago. * Physical therapy and occupation therapy at consulted * Because of the patient fasciculation of the tongue I recommend patient to get EMG with nerve conduction study of bilateral upper and lower extremity and also with some cranial nerves sampled (such as tongue and facial) to rule out lower motor neuron. * Patient was counseled on the alcohol cessation. * Defer the rest of the medical management to the primary team. * Upon discharge, the patient needs to follow-up with a neurologist within 1-2 weeks as outpatient. The plan is discussed with the patient. Rudy South MD Neuro-Hospitalist. Time with Patient: Less than 30
[2021-08-02] MEDS: CYANOCOBALAMIN 500 MCG TAB PO SCH (17:43)
[2021-08-03] MEDS: METHADONE 10 MG TAB PO PRN ×4 (06:02→21:02)
[2021-08-03] MEDS: NICOTINE 14MG/24HR PATCH TRANSDERM SCH (07:06)
[2021-08-03] MEDS: THIAMINE 100 MG TAB PO SCH (07:09)
[2021-08-03] MEDS: cloNIDine HCL 0.1 MG TAB PO SCH ×3 (07:09→21:03)
[2021-08-03] MEDS: PANTOPRAZOLE 40 MG TABLET PO SCH (07:09)
[2021-08-03] MEDS: FOLIC ACID 1 MG TAB PO SCH (07:09)
[2021-08-03] MEDS: buPROPion SR 150 MG TABLET.ER PO SCH (07:09)
[2021-08-03] MEDS: MULTIVITAMINS, THERA 1 EACH TAB PO SCH (07:09)
[2021-08-03] MEDS: CYANOCOBALAMIN 500 MCG TAB PO SCH (07:09)
[2021-08-03] MEDS: IPRATROPIUM 0.5 MG/2.5 ML NEBU INHALATION SCH ×4 (07:58→19:19)
[2021-08-03] MEDS: SYMBICORT 80-4.5 MCG INHALER INHALATION SCH ×2 (11:04→19:19)
--- NOTE | 2021-08-03 14:02 | P.DS ---
Providers Date of admission: 07/31/21 17:57 Attending physician: Kirby Rogers MD Consults: 07/31/21 18:07 Consult Physician Routine Consulting Provider: Dasia Dickinson Consult Reason/Comments: Weakness, frequent falls, dizziness?? 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 Possible pneumonia with aspiration Fall and the left atrial fracture and pain Possible meningioma on observation Mild hyponatremia Acute Parkinson's and gait dysfunction possibly Bilateral extensive calcified pleural plaques and mild pulmonary pulmonary infiltrate History of falls and gait dysfunction Increased creatinine with acute tubular necrosis and acute renal failure dehydration present on admission Polycythemia present on admission possibly secondary radiation White trauma cytopenia History hypertension History chronic liver disease History of hepatitis C History of for hemodialysis previously History of MRSA History gait dysfunction History of cholecystectomy history History of colonoscopy Anxiety Panic disorder next in history of nicotine dependence Full code Discharge disposition This 66-year-old gentleman is being discharged in a stable condition with guarded prognosis ECF. Total time taken 35 minutes. History of present illness This 66 or gentleman with a past medical history multiple medical problems being followed by Dr. Cortez in the preceding was admitted with the same meniscitis and multiple other medical process mentioned earlier patient was treated in conjunction with the neurology. Medications are adjusted. Alcohol smoking cessation recommended. Patient was given broad-spectrum IV antibiotics. Patient improved significantly. Patient slightly tremorous. Recommended ECF rehab at this time for gait training and therefore rehab. Otherwise I would also recommend outpatient follow-up with the social insurance adviser for alcohol possible alcohol and Smoking cessation also. Would also recommend follow-up with neurology as an outpatient the next On exam vitals are stable. Cardio S1 is normal abdomen soft respiratory few scattered rhonchi and no system diffusely weak I would recommend to continue the short course of antibiotics. Continue to monitor the labs. Please refer to the discharge records see sheet for rest of the medications. Plan - Discharge Summary New Discharge Prescriptions: New Nicotine 14Mg/24Hr Patch [Habitrol] 1 patch TRANSDERM DAILY patch Multivitamins, Thera [Multivitamin (formulary)] 1 each PO DAILY tab Ibuprofen [Advil] 200 mg PO Q6HR PRN tab PRN Reason: Mild Pain Ipratropium Nebulized [Atrovent Nebulized 0.2 MG/ML] 0.5 mg INHALATION RT-QID ml cloNIDine HCL [Catapres] 0.1 mg PO TID tab Cefuroxime Axetil [Ceftin] 500 mg PO BID 3 Days #6 tab Folic Acid 1 mg PO DAILY@1200 tab Pantoprazole [Protonix] 40 mg PO AC-BRKFST tab Acetaminophen Tab [Tylenol] 500 mg PO Q6HR PRN tab PRN Reason: Fever and/ or Mild Pain Thiamine [Vitamin B-1] 100 mg PO DAILY@1200 tab Cyanocobalamin [Vitamin B-12] 1,000 mcg PO DAILY tab Continue Methadone [Dolophine] 10 mg PO QID PRN PRN Reason: Pain buPROPion SR [Wellbutrin SR] 150 mg PO DAILY #4 tab Fluticasone/Umeclidin/Vilanter [Trelegy Ellipta 100-62.5-25] 1 inhalation INHALATION RT-DAILY Discontinued Diazepam [Valium] 5 - 10 mg PO DAILY PRN PRN Reason: Anxiety Azithromycin [Zithromax] 500 mg PO DAILY Discharge Medication List Methadone [Dolophine] 10 mg PO QID PRN 09/03/14 [History] Fluticasone/Umeclidin/Vilanter [Trelegy Ellipta 100-62.5-25] 1 inhalation INHALATION RT-DAILY 07/31/21 [History] Acetaminophen Tab [Tylenol] 500 mg PO Q6HR PRN tab 08/03/21 [Rx] Cefuroxime Axetil [Ceftin] 500 mg PO BID 3 Days #6 tab 08/03/21 [Rx] Cyanocobalamin [Vitamin B-12] 1,000 mcg PO DAILY tab 08/03/21 [Rx] Folic Acid 1 mg PO DAILY@1200 tab 08/03/21 [Rx] Ibuprofen [Advil] 200 mg PO Q6HR PRN tab 08/03/21 [Rx] Ipratropium Nebulized [Atrovent Nebulized 0.2 MG/ML] 0.5 mg INHALATION RT-QID ml 08/03/21 [Rx] Multivitamins, Thera [Multivitamin (formulary)] 1 each PO DAILY tab 08/03/21 [Rx] Nicotine 14Mg/24Hr Patch [Habitrol] 1 patch TRANSDERM DAILY patch 08/03/21 [Rx] Pantoprazole [Protonix] 40 mg PO AC-BRKFST tab 08/03/21 [Rx] Thiamine [Vitamin B-1] 100 mg PO DAILY@1200 tab 08/03/21 [Rx] buPROPion SR [Wellbutrin SR] 150 mg PO DAILY #4 tab 08/03/21 [Rx] cloNIDine HCL [Catapres] 0.1 mg PO TID tab 08/03/21 [Rx] Follow up Appointment(s)/Referral(s): Terese Cortez MD [Primary Care Provider] - 1-2 days Emilio Valdes MD [Medical Doctor] - 1 Week Ambulatory/Diagnostic Orders: Complete Blood Count w/diff [LAB.AMB] Location: None Selected Patient Instructions/Handouts: Fall Prevention (DC)
--- NOTE | 2021-08-03 17:17 | PN ---
PROGRESS NOTE DATE OF SERVICE: 08/03/2021 This 66-year-old gentleman who was admitted with gait dysfunction as well as acute metabolic encephalopathy is being closely monitored. The patient is improving significantly. The patient is receiving methadone. No chest pain. No palpitation. No fever. PHYSICAL EXAMINATION: Alert and oriented x3. Pulse is 69, blood pressure 138/83, respirations 16, temperature 97.4, pulse ox 92% on room air. HEENT: Conjunctivae normal. NECK: No jugular venous distention. CARDIOVASCULAR: S1, S2 muffled. RESPIRATION: Breath sounds diminished at the bases. A few scattered rhonchi. ABDOMEN: Soft. NERVOUS SYSTEM: Diffusely weak. LABS: D-dimer 0.7. Other labs are noted. ASSESSMENT: 1. Gait dysfunction, possible acute metabolic encephalopathy, possibly secondary to alcohol, multifactorial. 2. 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 3. Possible pneumonia with aspiration. 4. Fall and left rib fracture and pain. 5. Possible meningioma, on observation. 6. Mild hyponatremia. 7. Acute Parkinson's and gait dysfunction, possibly. 8. Methadone as an outpatient. 9. Bilateral extensive calcified pleural plaque and mild pulmonary infiltrates, possible asbestosis. 10.History of falls and gait dysfunction. 11.Increased creatinine with acute tubular necrosis, acute renal failure, dehydration, present on admission. 12.Polycythemia, present on admission, possibly secondary to dehydration. 13.Cytopenia. 14.Hypertension. 15.Chronic liver disease. 16.History of hepatitis C. 17.History of hemodialysis previously. 18.History of MRSA. 19.History of gait dysfunction. 20.History of cholecystectomy. 21.History of colonoscopy. 22.History of anxiety. 23.History of panic disorder. 24.History of nicotine dependence. 25.FULL CODE. RECOMMENDATIONS AND DISCUSSION: In this 66-year-old gentleman who presented with multiple complex medical issues, we will monitor the patient closely, continue the current medications, continue symptomatic treatment, repeat labs. PT/OT evaluation, possible ECF rehab. Guarded prognosis. Further recommendations to follow. MMODL / IJN: [id number] / MTDClaudy
[2021-08-04] MEDS: METHADONE 10 MG TAB PO PRN ×2 (05:51→11:58)
[2021-08-04] MEDS: IPRATROPIUM 0.5 MG/2.5 ML NEBU INHALATION SCH ×2 (07:54→12:00)
[2021-08-04] MEDS: SYMBICORT 80-4.5 MCG INHALER INHALATION SCH (07:54)
[2021-08-04 08:16] VITALS: BP 147/74; PULSE 58; RESP 18; TEMP 98.3
[2021-08-04] MEDS: NICOTINE 14MG/24HR PATCH TRANSDERM SCH ×2 (08:21→08:34)
[2021-08-04] MEDS: IBUPROFEN 200 MG TAB PO PRN (08:22)
[2021-08-04] MEDS: CYANOCOBALAMIN 500 MCG TAB PO SCH (08:22)
[2021-08-04] MEDS: MULTIVITAMINS, THERA 1 EACH TAB PO SCH (08:23)
[2021-08-04] MEDS: PANTOPRAZOLE 40 MG TABLET PO SCH (08:23)
[2021-08-04] MEDS: buPROPion SR 150 MG TABLET.ER PO SCH (08:23)
[2021-08-04] MEDS: cloNIDine HCL 0.1 MG TAB PO SCH (08:29)
[2021-08-04 10:27] LABS: Basophils # (A) 0.02 X 10*3/uL (0.00-0.10); Basophils % (A) 0.3 %; Eosinophils # (A) 0.16 X 10*3/uL (0.04-0.35); Eosinophils % (A) 2.4 %; HCT 56.9 % (39.6-50.0); Lymphocytes # (A) 1.05 X 10*3/uL (0.90-5.00); Lymphocytes % (A) 15.6 %; MCHC 33.4 g/dL (32.0-37.0); MCV 95.8 fL (80.0-97.0); Mean Platelet Volume 10.5 fL (9.5-12.2); Monocytes # (A) 0.58 X 10*3/uL (0.20-1.00); Monocytes % (A) 8.6 %; Neutrophils % (A) 72.7 %; Platelet Count 124 X 10*3/uL (140-440); RBC 5.94 X 10*6/uL (4.40-5.60); RDW 12.4 % (11.5-14.5); WBC 6.74 X 10*3/uL (4.50-10.00)
[2021-08-04 10:46] LABS: African American GFR (CKD) 65.4 (60.0-200.0); Anion Gap 18.4 mmol/L (10.00-18.00); BUN/Creat Ratio 14.62 Ratio (12.00-20.00); Calcium 9.3 mg/dL (8.7-10.3); Carbon Dioxide 18.6 mmol/L (20.0-27.5); Non-African American GFR(CKD) 56.5 (60.0-200.0); Potassium 4.7 mmol/L (3.5-5.5)
[2021-08-04] MEDS: FOLIC ACID 1 MG TAB PO SCH (12:39)
[2021-08-04] MEDS: THIAMINE 100 MG TAB PO SCH (12:39)
--- NOTE | 2021-08-05 | DS ---
DISCHARGE SUMMARY DATE OF SERVICE: 08/04/2021. DISCHARGE ADDENDUM: This 66-year-old gentleman who was admitted with gait dysfunction as well as metabolic encephalopathy secondary to ETOH is being discharged today. The patient also will require methadone as an outpatient. Please refer to my previous dictation for discharge diagnosis and list of medications. PAST MEDICAL HISTORY: Reviewed. REVIEW OF SYSTEMS: Cardiovascular: No angina or palpitations. Respiratory: As mentioned earlier. GI: As mentioned earlier. Nervous system: ntd MMODL / IJN: [id number] / MTDD
== END 2021-08-04 12:59 ==
LOC: EC 14:21 → 4SSUR 17:57 → INTOOBSV 17:57 → 4SSUR 18:20 → UNDODISIN 08-04 12:59
PROVIDERS: ADMIT Internal Medicine; ATTEND Internal Medicine
DX: J69.0 Pneumonitis due to inhalation of food and vomit (principal); I10 Essential (primary) hypertension; E86.0 Dehydration; N17.0 Acute kidney failure with tubular necrosis; D69.6 Thrombocytopenia, unspecified; S22.32XA Fracture of one rib, left side, initial encounter for closed fracture; D75.1 Secondary polycythemia; B18.2 Chronic viral hepatitis C; R32 Unspecified urinary incontinence; J92.9 Pleural plaque without asbestos; R91.8 Other nonspecific abnormal finding of lung field; F02.80 Dementia in other diseases classified elsewhere, unspecified severity, without behavioral disturbance, psychotic disturbance, mood disturbance, and anxiety; E87.1 Hypo-osmolality and hyponatremia; G20 Parkinson's disease; R15.9 Full incontinence of feces; K76.9 Liver disease, unspecified; F17.210 Nicotine dependence, cigarettes, uncomplicated; R63.0 Anorexia; R29.6 Repeated falls; W19.XXXA Unspecified fall, initial encounter; G31.2 Degeneration of nervous system due to alcohol; D32.0 Benign neoplasm of cerebral meninges; G31.89 Other specified degenerative diseases of nervous system; B19.20 Unspecified viral hepatitis C without hepatic coma; M54.6 Pain in thoracic spine; M25.512 Pain in left shoulder; F41.0 Panic disorder [episodic paroxysmal anxiety]; Z79.899 Other long term (current) drug therapy; Z88.0 Allergy status to penicillin; Z91.81 History of falling; Z71.41 Alcohol abuse counseling and surveillance of alcoholic; Z90.49 Acquired absence of other specified parts of digestive tract; Z87.19 Personal history of other diseases of the digestive system; Z86.14 Personal history of Methicillin resistant Staphylococcus aureus infection; Z80.0 Family history of malignant neoplasm of digestive organs
CPT/HCPCS: 99285; 96366 ×2; 96367 ×2; 96361 ×2; 96365; 36415; 94640 ×6; 94760; 93005; 97116 ×2; 97162; 97166; 84207; 83921; 85379; 80053; 80048 ×3; 82607; 82140; 82746; 83605; 84484; 85025 ×4; 85610; 85730; 81001; 87040; 80306; 83036; 87635; 71110; 71046; 93880; 72125; 70450; 74176; 70551; G0378 ×5; G0480; J3411 ×2; S0106 ×4; J0696 ×2; S0109 ×5; 80320; 96360

== ENCOUNTER 2022-01-23 18:42 | Emergency (ER) | payer MEDICARE ==
--- NOTE | 2022-01-23 19:08 | ED ---
General Adult HPI - General Stated complaint: Fall Time Seen by Provider: 01/23/22 19:02 Source: patient, RN notes reviewed Mode of arrival: EMS Limitations: no limitations - History of Present Illness Initial comments: Patient is a pleasant 67-year-old male presenting to the emergency department following a fall. Patient states he tripped going out to get his mail. Patient landed on a curb. Patient denies any loss of consciousness. Patient does complain of mild headache. No weakness. No blood thinners. No history of similar symptoms previously. Patient states last tetanus immunization was less than 5 years ago. No chest or abdominal injury. - Related Data Home Medications Medication Instructions Recorded Confirmed Methadone [Dolophine] 10 mg PO QID PRN 09/03/14 07/31/21 Fluticasone/Umeclidin/Vilanter 1 inhalation INHALATION RT-DAILY 07/31/21 07/31/21 [Trelegy Ellipta 100-62.5-25] Previous Rx's Medication Instructions Recorded Acetaminophen Tab [Tylenol] 500 mg PO Q6HR PRN tab 08/03/21 Cefuroxime Axetil [Ceftin] 500 mg PO BID 3 Days #6 tab 08/03/21 Cyanocobalamin [Vitamin B-12] 1,000 mcg PO DAILY tab 08/03/21 Folic Acid 1 mg PO DAILY@1200 tab 08/03/21 Ibuprofen [Advil] 200 mg PO Q6HR PRN tab 08/03/21 Ipratropium Nebulized [Atrovent 0.5 mg INHALATION RT-QID ml 08/03/21 Nebulized 0.2 MG/ML] Multivitamins, Thera [Multivitamin 1 each PO DAILY tab 08/03/21 (formulary)] Nicotine 14Mg/24Hr Patch [Habitrol] 1 patch TRANSDERM DAILY patch 08/03/21 Pantoprazole [Protonix] 40 mg PO AC-BRKFST tab 08/03/21 Thiamine [Vitamin B-1] 100 mg PO DAILY@1200 tab 08/03/21 buPROPion SR [Wellbutrin SR] 150 mg PO DAILY #4 tab 08/03/21 cloNIDine HCL [Catapres] 0.1 mg PO TID tab 08/03/21 Allergies Allergy/AdvReac Type Severity Reaction Status Date / Time Penicillins Allergy Unknown Verified 01/23/22 19:08 Childhood Review of Systems ROS Statement: Those systems with pertinent positive or pertinent negative responses have been documented in the HPI. ROS Other: All systems not noted in ROS Statement are negative. Constitutional: Denies: fever Eyes: Denies: eye pain ENT: Denies: ear pain Respiratory: Denies: cough Cardiovascular: Denies: chest pain Endocrine: Denies: fatigue Gastrointestinal: Denies: abdominal pain Genitourinary: Denies: dysuria Musculoskeletal: Denies: back pain Skin: Denies: rash Neurological: Reports: as per HPI, headache. Denies: weakness, confusion Past Medical History Past Medical History: Hypertension, Liver Disease Additional Past Medical History / Comment(s): HEP C; HX OF DIALYSIS PER PT, NOW OFF. History of Any Multi-Drug Resistant Organisms: MRSA Date of last positivie culture/infection: 2007 MDRO Source:: Blood/Bone Past Surgical History: Cholecystectomy, Hernia Repair, Tonsillectomy Additional Past Surgical History / Comment(s): COLONOSCOPY. Umbilical and Inguinal surgery x4 Past Anesthesia/Blood Transfusion Reactions: No Reported Reaction Past Psychological History: Anxiety, Panic Disorder Smoking Status: Current some day smoker Past Alcohol Use History: Daily Past Drug Use History: None Reported - Past Family History Mother Family Medical History: Cancer Additional Family Medical History / Comment(s): of colon CA Father Family Medical History: Cancer Additional Family Medical History / Comment(s): Colostomy from colon CA General Exam Limitations: no limitations General appearance: alert, in no apparent distress Head exam: Present: other (Left eyebrow abrasion) Eye exam: Present: normal appearance, PERRL, EOMI, other (Ecchymosis without tenderness left orbital region) ENT exam: Present: normal oropharynx Neck exam: Present: normal inspection. Absent: tenderness Respiratory exam: Present: normal lung sounds bilaterally Cardiovascular Exam: Present: regular rate, normal rhythm GI/Abdominal exam: Present: soft. Absent: tenderness Extremities exam: Present: normal inspection, full ROM. Absent: tenderness Neurological exam: Present: alert, oriented X3, CN II-XII intact. Absent: motor sensory deficit Expanded Neurological exam: Present: protecting the airway Patient oriented to: Present: person, place, time Speech: Present: fluid speech Cranial nerves: EOM's Intact: Normal, Facial Sensation: Normal Sensory exam: Upper Extremity Light Touch: Normal, Lower Extremity Light Touch: Normal Motor strength exam: RUE: 5, LUE: 5, RLE: 5, LLE: 5 Eye Response: (4) open spontaneously Motor Response: (6) obeys commands Verbal Response: (5) oriented Psychiatric exam: Present: normal affect, normal mood Skin exam: Present: abrasion (Left eyebrow, left hand and left elbow) Course Vital Signs 01/23/22 18:59 Pulse Rate 79 Respiratory 18 Rate Blood Pressure 142/112 O2 Sat by Pulse 98 Oximetry - Reevaluation(s) Reevaluation #1: 01/23/22 19:57 Call from radiologist regarding concern for subarachnoid and parenchymal hemorrhage on the left frontal region. Also concern for left orbital fracture. C-spine negative. Patient reevaluated and updated. No neurological change. 01/23/22 20:06 We did contact [facility] who will call us back regarding potential transfer. Medical Decision Making - Medical Decision Making Case was discussed with Dr. chacon at [facility], who will accept transfer. - Radiology Data Radiology results: report reviewed (As discussed with radiologist concern for subarachnoid and possible parenchymal hemorrhage.) Disposition Clinical Impression: Traumatic subarachnoid hemorrhage Disposition: OTHER INSTITUTION NOT DEFINED Condition: Serious Referrals: Terese Cortez MD [Primary Care Provider] - 1-2 days Time of Disposition: 20:12 - Out of Hospital Transfer - Req. Specs Out of Hospital Transfer - Requested Specifics: Other Emergency Center
--- NOTE | 2022-01-23 19:51 | CT ---
EXAMINATION TYPE: CT brain zeniaine wo con DATE OF EXAM: 01/23/2022 COMPARISON: 07/31/2021 HISTORY: FALL CT DLP: 1317.7 mGycm Automated exposure control for dose reduction was used. Images of the brain and cervical spine obtained without contrast. There is cerebral cortical atrophy. There is no mass effect. There is no midline shift. There are sma ll linear areas of increased attenuation at the left frontal lobe convexity consistent with small are as of subarachnoid hemorrhage. There is also similar finding in the right posterior frontal lobe conv exity. There is some hypodensity in the periventricular white matter. There is right parietal small a reas of acute hemorrhage as well in the sulci. The calvarium is intact. There is normal aeration of t he mastoid sinuses. There is fracture of the lateral wall of the left maxillary sinus with hemorrhage and fluid level in the left maxillary sinus. There is probably orbital blowout fracture. Cervical vertebra have normal alignment. There is degenerative disc space narrowing at C5-6 and C6-7 with spurring. Facet joints are intact. There is mild hypertrophic facet arthropathy. Prevertebral so ft tissues are intact. Exam was discussed with emergency room staff at 7:50 PM. IMPRESSION: Acute subarachnoid hemorrhage in the left frontal lobe and right frontal and parietal lobe consistent with traumatic injury. Small components of parenchymal hemorrhage also possible. Chronic small vessel ischemia. Spondylotic changes in the cervical spine. No fracture. Cervical spine not changed compared to old exam. Acute fracture of the left maxillary sinus lateral wall with hemorrhage in the sinus. There is very l ikely blowout fracture of the floor of the left bony orbit.
[2022-01-23] MEDS ORDERED: LABETALOL SYRINGE 5 MG/ML IVP STA (20:40)
--- NOTE | 2022-01-23 20:49 | XR ---
EXAMINATION TYPE: XR chest 1V portable DATE OF EXAM: 01/23/2022 COMPARISON: 07/31/2021 HISTORY: Trauma TECHNIQUE: Single view FINDINGS: There is some atelectasis right lung base. Left lung is clear. Heart size is normal. No hea rt failure. There are no hilar masses. The bony thorax is intact. IMPRESSION: There is some scarring and atelectasis right lower lobe without change. Normal heart.
--- NOTE | 2022-01-23 20:50 | XR ---
EXAMINATION TYPE: XR pelvis AP view DATE OF EXAM: 01/23/2022 COMPARISON: NONE HISTORY: Pain TECHNIQUE: Single view FINDINGS: Pelvic ring is intact. Proximal femurs and hip joints are intact. Sacroiliac joints are int act. IMPRESSION: Normal pelvis.
[2022-01-23 20:59] VITALS: BP 141/98; PULSE 77; RESP 16
[2022-01-23] MEDS ORDERED: HYDROmorphone 0.5 MG/0.5 ML SYRINGE IVP STA (21:00)
[2022-01-23 21:01] LABS: Basophils # (A) 0.1 k/uL (0-0.2); Basophils % (A) 1 %; Eosinophils # (A) 0.2 k/uL (0-0.7); Eosinophils % (A) 2 %; HCT 44.5 % (39.0-53.0); HGB 14.8 gm/dL (13.0-17.5); Lymphocytes # (A) 1.2 k/uL (1.0-4.8); Lymphocytes % (A) 12 %; MCH 31.3 pg (25.0-35.0); MCHC 33.3 g/dL (31.0-37.0); Mean Platelet Volume 6.9; Monocytes # (A) 0.4 k/uL (0-1.0); Monocytes % (A) 5 %; Neutrophils # (A) 7.7 k/uL (1.3-7.7); Neutrophils % (A) 79 %; Platelet Count 198 k/uL (150-450); RBC 4.73 m/uL (4.30-5.90); RDW 11.8 % (11.5-15.5); WBC 9.8 k/uL (3.8-10.6)
[2022-01-23] MEDS ORDERED: ACETAMINOPHEN IV (For NPO) 1,000 MG in EMPTY BAG 1 BAG IVPB STA (21:01)
[2022-01-23 21:17] LABS: Prothrombin Time 10.5 sec (9.0-12.0)
[2022-01-23 21:18] LABS: Partial Thromboplastin Time 21.8 sec (22.0-30.0)
[2022-01-23 21:21] LABS: Albumin 4.2 g/dL (3.5-5.0); Potassium 4.4 mmol/L (3.5-5.1); Total Bilirubin 0.6 mg/dL (0.2-1.3); Total Protein 6.7 g/dL (6.3-8.2)
== END 2022-01-23 21:16 | disposition other institution (70) ==
LOC: EC 18:42
DX: Z88.0 Allergy status to penicillin (principal); I10 Essential (primary) hypertension; F17.200 Nicotine dependence, unspecified, uncomplicated; S06.6X0A Traumatic subarachnoid hemorrhage without loss of consciousness, initial encounter; W19.XXXA Unspecified fall, initial encounter
CPT/HCPCS: 36415; 93005; 86900; 86901; 80053; 85025; 85610; 85730; 86850; 72170; 71045; 72125; 70450; 99285; 96374; G0480; 80320

== ENCOUNTER → 2022-02-14 | Outpatient (CLI) | payer MEDICARE ==
--- NOTE | 2022-02-14 16:44 | CT ---
EXAMINATION TYPE: CT brain wo con DATE OF EXAM: 02/14/2022 COMPARISON: CT dated 01/23/2022 HISTORY: NONTRAUMATIC SUBARACHNOID HEMORRHAGE. F/u and comparison of bleed from 01.23.22 CT DLP: 1216 mGycm Automated exposure control for dose reduction was used. TECHNIQUE: CT scan of the brain is performed without IV contrast administration. FINDINGS: Artifactual images. Interval complete resolution of the previously seen intracranial bleeding. No def inite intracranial hemorrhage identified today. Brain volume loss changes and chronic microvascular ischemic changes, appreciated previously. Scatter ed arterial atherosclerotic calcifications. No gross acute cortical infarct. No midline shift or herniation. Unremarkable basal cisterns, sella a nd CP angles. No gross space-occupying lesion, vasogenic edema or mass effect. Unremarkable orbits. Known mildly displaced fracture of the lateral wall of the left maxillary sinus. Clear visualized paranasal sinuses and mastoid air cells. No definite acute calvarial bone fracture identified. IMPRESSION: Interval resolution of the previously seen intracranial bleeding. No new intracranial bleeding or new mass effect. Incidental findings as described above.
== END | disposition home or self-care (01) ==
LOC: RADCTMAIN 15:44
PROVIDERS: ATTEND Internal Medicine
DX: I60.9 Nontraumatic subarachnoid hemorrhage, unspecified (principal); I25.10 Atherosclerotic heart disease of native coronary artery without angina pectoris
CPT/HCPCS: 70450

== ENCOUNTER 2023-01-16 14:18 | Inpatient (IN) | payer MEDICARE ==
[2023-01-16] MEDS ORDERED: LIDOCAINE 5% PATCH TOPICAL STA (16:06)
--- NOTE | 2023-01-16 16:12 | ED ---
General Adult HPI - General Source: patient, RN notes reviewed Mode of arrival: EMS <Yanira Cruz - Last Filed: 01/16/23 18:57> <Nathan Coto - Last Filed: 01/16/23 20:04> - General Chief complaint: Fall Stated complaint: fall Time Seen by Provider: 01/16/23 15:22 - History of Present Illness Initial comments: 67-year-old male presents to the emergency department with chief complaint of fall that occurred yesterday at 1700. Patient states that he tripped up the stairs while carrying a bag. He states that he hit his right side and his face. He is having pain over his ribs on the right side. Patient has bruising under his right arm. He has an abrasion to his forehead and to bilateral wrists. Denies wrist pain. Denies blood thinners. Denies hitting his head, loss of consciousness, headache. He states he takes suboxone for his back pain. (Yanira Cruz) - Related Data Home Medications Medication Instructions Recorded Confirmed Methadone [Dolophine] 10 mg PO QID PRN 09/03/14 07/31/21 Fluticasone/Umeclidin/Vilanter 1 inhalation INHALATION RT-DAILY 07/31/21 [Trelegy Ellipta 100-62.5-25] Previous Rx's Medication Instructions Recorded Acetaminophen Tab [Tylenol] 500 mg PO Q6HR PRN tab 08/03/21 Cyanocobalamin [Vitamin B-12] 1,000 mcg PO DAILY tab 08/03/21 Folic Acid 1 mg PO DAILY@1200 tab 08/03/21 Ibuprofen [Advil] 200 mg PO Q6HR PRN tab 08/03/21 Ipratropium Nebulized [Atrovent 0.5 mg INHALATION RT-QID ml 08/03/21 Nebulized 0.2 MG/ML] Multivitamins, Thera [Multivitamin 1 each PO DAILY tab 08/03/21 (formulary)] Nicotine 14Mg/24Hr Patch [Habitrol] 1 patch TRANSDERM DAILY patch 08/03/21 Pantoprazole [Protonix] 40 mg PO AC-BRKFST tab 08/03/21 Thiamine [Vitamin B-1] 100 mg PO DAILY@1200 tab 11/23/21 buPROPion SR [Wellbutrin SR] 150 mg PO DAILY #4 tab 08/03/21 cefUROXime axetiL [Ceftin] 500 mg PO BID 3 Days #6 tab 08/03/21 cloNIDine HCL [Catapres] 0.1 mg PO TID tab 08/03/21 Allergies Allergy/AdvReac Type Severity Reaction Status Date / Time Penicillins Allergy Unknown Verified 01/16/23 14:37 Childhood Review of Systems ROS Other: All systems not noted in ROS Statement are negative. <Yanira Cruz - Last Filed: 01/16/23 18:57> ROS Other: All systems not noted in ROS Statement are negative. <Nathan Coto - Last Filed: 01/16/23 20:04> ROS Statement: Those systems with pertinent positive or pertinent negative responses have been documented in the HPI. Past Medical History Past Medical History: Hypertension, Liver Disease Additional Past Medical History / Comment(s): HEP C; HX OF DIALYSIS PER PT, NOW OFF. History of Any Multi-Drug Resistant Organisms: MRSA Date of last positivie culture/infection: 2007 MDRO Source:: Blood/Bone Past Surgical History: Cholecystectomy, Hernia Repair, Tonsillectomy Additional Past Surgical History / Comment(s): COLONOSCOPY. Umbilical and Inguinal surgery x4 Past Anesthesia/Blood Transfusion Reactions: No Reported Reaction Past Psychological History: Anxiety, Panic Disorder Smoking Status: Current some day smoker Past Alcohol Use History: Daily Past Drug Use History: None Reported - Past Family History Mother Family Medical History: Cancer Additional Family Medical History / Comment(s): of colon CA Father Family Medical History: Cancer Additional Family Medical History / Comment(s): Colostomy from colon CA <Yanira Cruz - Last Filed: 01/16/23 18:57> General Exam General appearance: alert, in no apparent distress Head exam: Present: other (abrasion to forehead) Eye exam: Present: normal appearance ENT exam: Present: normal exam, mucous membranes moist Neck exam: Present: normal inspection. Absent: tenderness Respiratory exam: Present: wheezes (Bilateral) Cardiovascular Exam: Present: regular rate, normal rhythm, normal heart sounds. Absent: systolic murmur, diastolic murmur, rubs, gallop, clicks GI/Abdominal exam: Present: tenderness Extremities exam: Present: other (Abrasions to bilateral wrists, full range of motion, radial pulses 2+, no edema, contusion to right sided ribs under the right arm) Back exam: Present: normal inspection Neurological exam: Present: alert, oriented X3 Psychiatric exam: Present: normal affect, normal mood Skin exam: Present: warm, dry, abrasion, other (Contusion to right sided ribs, right axilla; abrasion to bilateral wrists, abrasion to forehead) <Yanira Cruz - Last Filed: 01/16/23 18:57> Course Vital Signs 01/16/23 01/16/23 01/16/23 14:26 14:40 18:20 Temperature 98.4 F 99.1 F Pulse Rate 87 89 Respiratory 18 24 20 Rate Blood Pressure 156/90 148/88 O2 Sat by Pulse 93 L 91 L Oximetry 01/16/23 01/16/23 19:50 19:57 Temperature Pulse Rate 87 91 Respiratory Rate Blood Pressure O2 Sat by Pulse Oximetry Medical Decision Making <Yanira Cruz - Last Filed: 01/16/23 18:57> <Nathan Coto - Last Filed: 01/16/23 20:04> - Medical Decision Making Was pt. sent in by a medical professional or institution (, PA, DESIGN ASSISTANT, urgent care, hospital, or [place] health care facility...) When possible be specific @ -[No] Did you speak to anyone other than the patient for history (EMS, parent, family, police, friend...)? What history was obtained from this source @ -[EMS] Did you review nursing and triage notes (agree or disagree)? Why? @ -[I reviewed and agree with nursing and triage notes] Were old charts reviewed (outside hosp., previous admission, EMS record, old EKG, old radiological studies, urgent care reports/EKG's, [place] health care facility records)? Report findings @ -[No old charts were reviewed] Differential Diagnosis (chest pain, altered mental status, abdominal pain women, abdominal pain men, vaginal bleeding, weakness, fever, dyspnea, syncope, headache, dizziness, GI bleed, back pain, seizure, CVA, palpatations, mental health, musculoskeletal)? @ -[Differential Musculoskeletal Muscular strain, contusion, ligament sprain, fracture, arthritis, septic arthritis, bursitis, cellulitis, muscle spasm, nerve compression, DVT, arterial occlusion, herpes zoster, electrolyte abnormality, tumor.... This is not meant to be in all inclusive list] EKG interpreted by me (3pts min.). @ -[none] X-rays interpreted by me (1pt min.). @ -[X-ray of right ribs and chest show no acute fractures, mild infiltrate in the right lower lobe correlate for atelectasis or pna] CT interpreted by me (1pt min.). @ -[CT brain and C-spine showed no acute intracranial abnormality seen, mild ventriculomegaly likely due to cerebral atrophy; no acute fracture of the cervical spine, moderate multilevel spondylitic change] U/S interpreted by me (1pt. min.). @ -[None done] What testing was considered but not performed or refused? (CT, X-rays, U/S, labs)? Why? @ -[None] What meds were considered but not given or refused? Why? @ -[None] Did you discuss the management of the patient with other professionals (professionals i.e. , PA, DESIGN ASSISTANT, lab, RT, psych nurse, rn social work, set builder, teacher, drug abuse resistance education officer, special education case manager)? Give summary @ -[No] Was smoking cessation discussed for >3mins.? @ -[No] Was critical care preformed (if so, how long)? @ -[No] Were there social determinants of health that impacted care today? How? (Homelessness, low income, unemployed, alcoholism, drug addiction, transportation, low edu. Level, literacy, decrease access to med. care, alf, rehab)? @ -[No] Was there de-escalation of care discussed even if they declined (Discuss DNR or withdrawal of care, Hospice)? DNR status @ -[No] What co-morbidities impacted this encounter? (DM, HTN, Smoking, COPD, CAD, Cancer, CVA, ARF, Chemo, Hep., AIDS, mental health diagnosis, sleep apnea, morbid obesity)? @ -[None] Was patient admitted / discharged? Hospital course, mention meds given and route, prescriptions, significant lab abnormalities, going to OR and other pertinent info. @ -[Patient presented to the emergency department via EMS for chief complaint of fall that occurred yesterday at 1700. Patient reports pain to his right sided chest. On exam, patient has wheezing bilaterally, abrasion to his forehead and bilateral wrist. X-ray of the right ribs and chest were obtained which showed no acute rib fractures, mild infiltrate to the right lower lobe. CT brain and C-spine showed no acute intracranial abnormality, no acute fracture of the cervical spine. Patient signed out to Dr. Coto at 1900] Undiagnosed new problem with uncertain prognosis? @ -[No] Drug Therapy requiring intensive monitoring for toxicity (Heparin, Nitro, Insulin, Cardizem)? @ -[No] Were any procedures done? @ -[No] Diagnosis/symptom? @ -[Fall] Acute, or Chronic, or Acute on Chronic? @ -acute Uncomplicated (without systemic symptoms) or Complicated (systemic symptoms)? @ -[default] Side effects of treatment? @ -[No] Exacerbation, Progression, or Severe Exacerbation? @ -[No] Poses a threat to life or bodily function? How? (Chest pain, [place], PR, pneumonia, PE, COPD, DKA, ARF, appy, cholecystitis, CVA, Diverticulitis, Homicidal, Suicidal, threat to staff... and all critical care pts) @ -[No] (Yanira Cruz) Patient is signed out to me by physician therapist's assistant, Yanira noble. Patient 67-year-old overweight male with COPD and hepatitis C liver disease. He presents to the ER after fall. Patient has severe chest pain. Computed tomography scan of the chest shows a nondisplaced rib fractures. His wheezing at the bedside. Patient states that he does have history of COPD. Continues to smoke tobacco. Patient having rib fractures with COPD exacerbation. Patient agreeable to disposition. (Nathan Coto) Disposition <Yanira Cruz - Last Filed: 01/16/23 18:57> Decision Time: 20:04 <Nathan Coto - Last Filed: 01/16/23 20:04> Clinical Impression: Respiratory failure Disposition: ADMITTED IP TO THIS HOSP Condition: Serious Referrals: Michael Ruelas MD [Primary Care Provider] - 1-2 days
--- NOTE | 2023-01-16 16:33 | XR ---
EXAMINATION TYPE: XR ribs RT w pa chest xray DATE OF EXAM: 01/16/2023 COMPARISON: 01/23/2022 INDICATION: Fall, rib pain TECHNIQUE: Single frontal view of the chest is obtained. FINDINGS: The heart size is normal. The pulmonary vasculature is normal. Mild infiltrate may be at the right base. Correlate for atelectasis or pneumonia. No pneumothorax is evident. IMPRESSION: 1. No acute right rib fractures. 2. Mild infiltrate right lower lobe. Correlate for atelectasis or pneumonia.
--- NOTE | 2023-01-16 18:27 | CT ---
EXAMINATION TYPE: CT brain andrés wo con DATE OF EXAM: 01/16/2023 COMPARISON: 02/14/2022 HISTORY: 67-year-old male with pain after fall CT DLP: 1485.1 mGycm Automated exposure control for dose reduction was used. Technique: Examination of the head was done in axial plane without intravenous contrast. Coronal and sagittal reconstructions performed. CT of the cervical spine was obtained in axial plane without intravenous injection of contrast mater ial. Coronal and sagittal reformatted images were obtained from the axial views for evaluation of f ractures, spinal alignment and canal. FINDINGS: Head: There is no evidence of acute intracranial hemorrhage, acute ischemic changes, mass, mass-effect, or extra-axial fluid collection. There is no effacement of cerebral sulci or basal subarachnoid cister ns. There is mild ventriculomegaly with evidence ratio calculated at 0.33. Similar prior exam. Modera te patchy periventricular white matter hypodensities in posterior hemispheres. There is no midline s hift. Pena-white matter distinction is preserved. Paranasal sinuses and mastoid air cells are well pneumatized. Orbits and globes are intact. No calvar ial fracture. Cervical spine: No previous junction abnormality, predental space widening, prevertebral soft tissue swelling. Degene rative change of the C1 dens articulation. Multilevel hypertrophic facet and uncovertebral joint arthropathy is present throughout. Mild to moderate multilevel disc disease. Degenerative interbody ankylosis C6/C7. There is degenerative grade 1 anterolisthesis C4-C5 and C7-T1. No acute fracture seen of the cervical spine. Variable [id number] bilateral neuroforaminal stenosis particularly on the right in the mid and lower cervical spine. Sagittal and coronal reformatted images confirm above findings. COMBINED IMPRESSION: 1. No acute intracranial abnormality seen. Mild ventriculomegaly likely due to central cerebral atrop hy. Correlate to exclude a component of NPH. Background mild to moderate burden of chronic small vess el ischemic disease. 2. No acute fracture of the cervical spine. Moderate multilevel spondylotic change. Degenerative grad e 1 anterolisthesis C4-C5 and C7-T1.
[2023-01-16] MEDS ORDERED: IPRATROPIUM-ALBUTEROL 3 ML NEB INHALATION STA (18:39)
[2023-01-16] MEDS ORDERED: DEXAMETHASONE SOD PHOSPHATE 10 MG/ML 1 ML VIAL IV STA (18:39)
--- NOTE | 2023-01-16 19:49 | CT ---
EXAMINATION TYPE: CT chest wo con DATE OF EXAM: 01/16/2023 COMPARISON: Radiographs same day and prior CT 09/08/2017 HISTORY: 67-year-old male right side rib pain TECHNIQUE: Contiguous axial scanning of the chest without IV contrast. Coronal and sagittal reconstru ctions performed. CT DLP: 376.4 mGycm Automated exposure control for dose reduction was used. FINDINGS: Heart normal size without pericardial effusion. Ectatic aortic root at 3.6 cm. Bovine configuration to the aortic arch with additional variant direct takeoff of the left vertebral artery directly from the aortic arch. Large caliber to the main right and left pulmonary arteries measuring up to 3.0 cm compatible with pu lmonary artery hypertension. No thoracic lymphadenopathy by CT size criteria. Chronic pleural thickening and pleural calcifications posterior aspect of both mid and lower lungs. M ild centrilobular emphysema. There is some significant narrowing of the right bronchus intermedius reyes ggesting bronchomalacia. Unchanged 4 mm subpleural pulmonary nodule lateral right base. No appreciable pneumothorax or pleural effusion. There appears to be chronic strandy scarring at the right base. Chronic subpleural nodularity posterior right base. There is bruising and soft tissue contusion along the right axilla and lateral right chest wall. Cholecystectomy clips in the upper abdomen. Bones: Nondisplaced fractures of the right lateral second, third, and fourth ribs. Degenerative versus old traumatic bony ankylosis T11-T12 vertebral bodies. IMPRESSION: 1. NONDISPLACED FRACTURES OF THE RIGHT LATERAL SECOND, THIRD, AND FOURTH RIBS. 2. ASSOCIATED SUBCUTANEOUS CHEST WALL BRUISING AND SOFT TISSUE SWELLING. 3. CHRONIC PLEURAL THICKENING AND CALCIFICATIONS POSTERIOR MID AND LOWER LUNGS. Either Asbestos-relat ed pleural disease processes sequela of prior empyemas or hemothoraces. 4. Significant narrowing of the right bronchus intermedius suggesting underlying bronchomalacia. Ther e is pulmonary arterial hypertension.
[2023-01-16] MEDS ORDERED: NALOXONE 0.4 MG/ML 1 ML VIAL IV PRN (20:04)
[2023-01-16] MEDS ORDERED: ALPRAZolam 0.25 MG TAB PO PRN (20:04)
[2023-01-16] MEDS ORDERED: NALOXONE 0.4 MG/ML 1 ML VIAL IVP PRN (20:05)
[2023-01-16 20:36] LABS: Basophils % (A) 1 %; Eosinophils # (A) 0.2 k/uL (0-0.7); Eosinophils % (A) 2 %; HCT 48.9 % (39.0-53.0); HGB 16.3 gm/dL (13.0-17.5); Lymphocytes % (A) 12 %; MCH 32.9 pg (25.0-35.0); MCHC 33.3 g/dL (31.0-37.0); MCV 98.8 fL (80.0-100.0); Mean Platelet Volume 7.2; Monocytes # (A) 0.6 k/uL (0-1.0); Monocytes % (A) 7 %; Neutrophils # (A) 6.5 k/uL (1.3-7.7); Neutrophils % (A) 77 %; Platelet Count 207 k/uL (150-450); RBC 4.95 m/uL (4.30-5.90); RDW 13.2 % (11.5-15.5); WBC 8.4 k/uL (3.8-10.6)
[2023-01-16 20:43] LABS: Albumin 4.5 g/dL (3.5-5.0); Calcium 9.1 mg/dL (8.4-10.2); Potassium 4.6 mmol/L (3.5-5.1); Total Bilirubin 1.2 mg/dL (0.2-1.3); Total Protein 7.7 g/dL (6.3-8.2)
[2023-01-16 20:49] LABS: INR 0.9 (<1.2); Partial Thromboplastin Time 22.7 sec (22.0-30.0); Prothrombin Time 10.1 sec (9.0-12.0)
[2023-01-16] MEDS: AZITHROMYCIN 500 MG TAB PO SCH (21:06)
[2023-01-16] MEDS ORDERED: ALPRAZolam 0.25 MG TAB PO STA (21:32)
[2023-01-16] MEDS: MORPHINE SULFATE 4 MG/ML SYRINGE IVP PRN (21:50)
[2023-01-16] MEDS ORDERED: IPRATROPIUM-ALBUTEROL 3 ML NEB INHALATION PRN (23:54)
[2023-01-17] MEDS: methylPREDNISolone SOD SUCCI 125 MG/2 ML VIAL IV SCH ×4 (00:09→16:55)
--- NOTE | 2023-01-17 01:44 | P.CNPUL ---
History of Present Illness Consult date: 01/17/23 Requesting physician: Nathan Coto Reason for consult: other (Rib fracture) Chief complaint: Fall History of present illness: I'm seeing this patient in new consultation today 01/17/2023 after the patient experienced a fall resulting in multiple right-sided rib fractures. Patient is a 67-year-old white male with past medical history significant for COPD, current smoker with over a [id number] history, bilateral lower extremity cellulitis, hypertension, hepatitis C, opiate abuse, chronic kidney disease. Patient does not follow with a behavioral science chair. His primary care provider is Dr. Ruelas. Patient came to the emergency room yesterday evening after sustaining a fall down 5 steps to his mobile home. Patient denies losing consciousness, and states that the handrail was slippery. Patient's neighbor ultimately helped him and EMS was called. Nonenhanced chest CT on arrival showed multiple nondisplaced fractures of the right lateral second, third, and fourth ribs. There was associated subcutaneous chest wall bruising and soft tissue swelling. There was also redemonstrated chronic pleural thickening and calcifications of the posterior mid and lower lung moran possibly related to asbestos exposure, significant narrowing of the right bronchus intermedius suggesting underlying bronchomalacia, and pulmonary hypertension. CT of the brain and C-spine without contrast showed no acute intracranial abnormality or acute fracture of the C- spine. There was some chronic multilevel spondylitic and degenerative changes. There was also some mild ventriculomegaly due to central cerebral atrophy. Patient is currently resting in bed, on 4 L nasal cannula, in no acute distress. He has significant facial bruising. He is quite bronchospastic. Incentive spirometer is at bedside. He is currently receiving scheduled DuoNeb's. CBC on arrival was unremarkable. BMP shows sodium 139, potassium 4.6, chloride 98, serum CO2 30, BUN 26, creatinine 1.43, glucose 116. Vital signs are stable at this time. Review of Systems REVIEW OF SYSTEMS: CONSTITUTIONAL: Denies any recent significant weight loss or weight gain. EYES: Denies change in vision. EARS, NOSE, MOUTH, THROAT: Denies headaches, denies sore throat. CARDIOVASCULAR: Denies chest pain, palpitations or syncopal episodes. RESPIRATORY: Denies shortness of breath, cough, congestion or hemoptysis. GASTROINTESTINAL: Denies change in appetite, abdominal pain, nausea and vom iting, or diarrhea GENITOURINARY: Denies hematuria, denies infections. MUSKULOSKELETAL: Denies pain, denies swelling. Admits bilateral lower extremity swelling. INTEGUMENTARY: Denies rash, denies eczema. Does report recent treatment for bilateral lower extremity cellulitis. NEUROLOGICAL: Denies recent memory loss, no recent seizure activity. PSYCHIATRIC: Denies anxiety, denies depression. HEMATOLOGIC/LYMPHATIC: Denies anemia, denies enlarged lymph node Past Medical History Past Medical History: Hypertension, Liver Disease Additional Past Medical History / Comment(s): HEP C; HX OF DIALYSIS PER PT, NOW OFF. History of Any Multi-Drug Resistant Organisms: MRSA Date of last positivie culture/infection: 2007 MDRO Source:: Blood/Bone Past Surgical History: Cholecystectomy, Hernia Repair, Tonsillectomy Additional Past Surgical History / Comment(s): COLONOSCOPY. Umbilical and Inguinal surgery x4 Past Anesthesia/Blood Transfusion Reactions: No Reported Reaction Past Psychological History: Anxiety, Panic Disorder Smoking Status: Current some day smoker Past Alcohol Use History: Daily Additional Past Alcohol Use History / Comment(s): STATES ABOUT 3-4 shots of cap wesley aubrie per day Past Drug Use History: None Reported Additional Drug Use History / Comment(s): Methadone for opiates taken for severe back pain. - Past Family History Mother Family Medical History: Cancer Additional Family Medical History / Comment(s): of colon CA Father Family Medical History: Cancer Additional Family Medical History / Comment(s): Colostomy from colon CA Medications and Allergies Home Medications Medication Instructions Recorded Confirmed Type ALPRAZolam [Xanax] 0.5 mg PO TID 01/16/23 01/16/23 History Buprenorphine/Naloxone 8Mg/2Mg 1 film SL TID 01/16/23 01/16/23 History [Suboxone 8-2Mg Film] Furosemide [Lasix] 40 mg PO DAILY PRN 01/16/23 01/16/23 History Allergies Allergy/AdvReac Type Severity Reaction Status Date / Time Penicillins Allergy Unknown Verified 01/16/23 20:51 Childhood Physical Exam Vitals: Vital Signs Temp Pulse Pulse Resp BP BP Pulse Ox 01/17/23 00:00 97.7 F 80 22 151/96 94 L 01/16/23 22:00 98.0 F 96 20 154/83 96 01/16/23 20:04 91 20 140/92 98 01/16/23 19:57 91 01/16/23 19:50 87 01/16/23 18:20 99.1 F 89 20 148/88 91 L 01/16/23 14:40 24 01/16/23 14:26 98.4 F 87 18 156/90 93 L Intake and Output 01/16/23 01/16/23 01/17/23 14:59 22:59 06:59 Output Total 125 Balance -125 Output: Urine 125 Other: Weight 88.451 kg 88.451 kg GENERAL EXAM: Alert, 67-year-old white male, comfortable in no apparent distress. HEAD: Normocephalic and ecchymotic bruising of the frontal forehead and left periorbital area EYES: Normal reaction of pupils, equal size. NOSE: Clear with pink turbinates. THROAT: No erythema or exudates. NECK: No masses, no JVD. CHEST: No chest wall deformity. Facial grimacing with palpation of the right lateral chest LUNGS: Equal air entry with expiratory wheezes heard throughout. no crackles, rhonchi or focal dullness. On 4 L nasal cannula. No conversational dyspnea or accessory muscle use.. CVS: S1 and S2 normal with no audible murmur, regular rhythm. No extra heart sounds ABDOMEN: No hepatosplenomegaly, active bowel sounds, no guarding or rigidity. SPINE: No scoliosis or deformity SKIN: No rashes. Generalized bruising. Bilateral lower extremity erythema and xerosis CENTRAL NERVOUS SYSTEM: No focal deficits, tone is normal in all 4 extremities. EXTREMITIES: There is no peripheral edema, clubbing, or cyanosis. Peripheral pulses are intact. Results - Laboratory Findings CBC and BMP: 01/17/23 07:48 01/16/23 20:04 PT/INR, D-dimer PT 10.1 sec (9.0-12.0) 01/16/23 20:04 INR 0.9 (<1.2) 01/16/23 20:04 Abnormal lab findings: Abnormal Labs 01/16/23 20:04 BUN 26 H Creatinine 1.43 H Glucose 116 H - Diagnostic Findings Chest x-ray: image reviewed CT scan - chest: image reviewed Assessment and Plan Assessment: Fall sustaining multiple rib fractures of the right lateral second, third, and fourth ribs. Chest CT also showed associated subcutaneous chest wall bruising and soft tissue swelling. There is also an area of bruising over the right axillary area. Patient also has skin bruising over the forehead and left temporal area. Acute exacerbation of COPD Acute hypoxic respiratory failure secondary to above, currently on 4 L nasal cannula Acute on chronic kidney disease, creatinine is currently 1.43. Patient has required transient hemodialysis in the past. Hypertension Pulmonary hypertension Possible bronchomalacia History of pulmonary asbestosis Chronic nicotine dependence, with over [id number] history History of bilateral lower extremity cellulitis status post completion of outpatient antibiotic Hepatitis C History of opiate abuse, currently on Suboxone outpatient Plan: Patient's medications, labs, chest CT, chest x-ray were reviewed Continue supplemental oxygen maintain oxygen saturation 92% or greater Encourage incentive spirometer He is quite bronchospastic, start patient on a combination of bronchodilators, budesonide, formoterol, Solu-Medrol Smoking cessation encouraged We will continue to follow I have personally seen and examined the patient, performed the documentation and the assessment and plan as written. Number of minutes spent on the visit:20 Joint evaluation that was done along with the nurse practitioner. The patient had a fall and rib fractures on the right as mentioned above. The patient is c urrently on oxygen at 4 L. He also has COPD and he is having a component of COPD exacerbation. His pain is under adequate control and morphine. He was provided incentive spirometer. We'll continue with the bronchodilators to continue with steroids and pain control. Will follow. This evaluation was done in more than >30 min Time with Patient: Greater than 30
[2023-01-17] MEDS: MORPHINE SULFATE 4 MG/ML SYRINGE IVP PRN ×5 (02:09→21:02)
--- NOTE | 2023-01-17 07:57 | XR ---
EXAMINATION TYPE: XR chest 1V portable DATE OF EXAM: 01/17/2023 6:50 AM COMPARISON: Chest radiographs from 01/16/2023, CT chest 01/16/2023 TECHNIQUE: XR chest 1V portable Portable AP radiograph of the chest. CLINICAL INDICATION:Male, 67 years old with history of Chest Trauma; FINDINGS: Lungs/Pleura: There is no evidence of pleural effusion, focal consolidation, or pneumothorax. Elevat ion of the right hemidiaphragm. Right basal pleural plaquing. Pulmonary vascularity: Unremarkable. Heart/mediastinum: Cardiomediastinal silhouette is unremarkable. Musculoskeletal: Known nondisplaced right lateral second, third, fourth ribs a better appreciated on CT chest from yesterday. IMPRESSION: Overall stable examination with no evidence for pneumothorax. Known nondisplaced right lateral second , third, and fourth ribs are better appreciated on previous CT chest from yesterday.
[2023-01-17 08:05] LABS: Basophils % (A) 0 %; Eosinophils % (A) 0 %; HCT 45.1 % (39.0-53.0); HGB 14.3 gm/dL (13.0-17.5); Lymphocytes # (A) 0.4 k/uL (1.0-4.8); Lymphocytes % (A) 7 %; MCH 31.7 pg (25.0-35.0); MCHC 31.8 g/dL (31.0-37.0); MCV 99.7 fL (80.0-100.0); Mean Platelet Volume 6.8; Monocytes # (A) 0.1 k/uL (0-1.0); Monocytes % (A) 2 %; Neutrophils # (A) 5.4 k/uL (1.3-7.7); Neutrophils % (A) 90 %; Platelet Count 204 k/uL (150-450); RBC 4.52 m/uL (4.30-5.90); RDW 12.9 % (11.5-15.5)
[2023-01-17] MEDS: IPRATROPIUM-ALBUTEROL 3 ML NEB INHALATION SCH ×4 (08:41→19:49)
[2023-01-17] MEDS: FORMOTEROL FUMARATE 20 MCG/2 ML NEBU INHALATION SCH ×2 (08:41→19:49)
[2023-01-17] MEDS: BUDESONIDE 1 MG/2 ML NEBU INHALATION SCH ×2 (08:41→19:49)
[2023-01-17] MEDS ORDERED: predniSONE 20 MG TAB PO SCH (09:00)
[2023-01-17] MEDS: ALPRAZolam 0.5 MG TAB PO PRN ×3 (10:16→22:25)
--- NOTE | 2023-01-17 11:24 | P.CONS ---
History of Present Illness - Reason for Consult Consult date: 01/17/23 - Chief Complaint Right chest wall pain due to rib fractures in ribs #2, 3, and 4 laterally - History of Present Illness This is a 67-year-old gentleman with history of COPD, hep C, chronic kidney d isease and multiple other comorbidities and recent fall on his right side which resulted in broken ribs #2, 3, and 4. The patient has a history of drug abuse. Past Medical History Past Medical History: Hypertension, Liver Disease Additional Past Medical History / Comment(s): HEP C; HX OF DIALYSIS PER PT, NOW OFF. History of Any Multi-Drug Resistant Organisms: MRSA Year Discovered:: 2007 MDRO Source:: Blood/Bone Past Surgical History: Cholecystectomy, Hernia Repair, Tonsillectomy Additional Past Surgical History / Comment(s): COLONOSCOPY. Umbilical and Inguinal surgery x4 Past Anesthesia/Blood Transfusion Reactions: No Reported Reaction Past Psychological History: Anxiety, Panic Disorder Smoking Status: Current some day smoker Past Alcohol Use History: Daily Additional Past Alcohol Use History / Comment(s): STATES ABOUT 3-4 shots of captian aubrie per day Past Drug Use History: None Reported Additional Drug Use History / Comment(s): Methadone for opiates taken for severe back pain. - Past Family History Mother Family Medical History: Cancer Additional Family Medical History / Comment(s): of colon CA Father Family Medical History: Cancer Additional Family Medical History / Comment(s): Colostomy from colon CA Medications and Allergies Home Medications Medication Instructions Recorded Confirmed Type ALPRAZolam [Xanax] 0.5 mg PO TID 01/16/23 01/16/23 History Buprenorphine/Naloxone 8Mg/2Mg 1 film SL TID 01/16/23 01/16/23 History [Suboxone 8-2Mg Film] Furosemide [Lasix] 40 mg PO DAILY PRN 01/16/23 01/16/23 History Allergies Allergy/AdvReac Type Severity Reaction Status Date / Time Penicillins Allergy Unknown Verified 01/16/23 20:51 Childhood Physical Exam Vitals: Vital Signs Temp Pulse Pulse Resp BP BP Pulse Ox 01/17/23 09:06 80 01/17/23 08:57 84 01/17/23 08:55 84 01/17/23 08:41 76 95 01/17/23 08:22 97.6 F 68 22 128/86 96 05/09/23 04:00 97.8 F 66 20 133/90 97 01/17/23 00:00 97.7 F 80 22 151/96 94 L 01/16/23 22:00 98.0 F 96 20 154/83 96 01/16/23 20:04 91 20 140/92 98 01/16/23 19:57 91 01/16/23 19:50 87 01/16/23 18:20 99.1 F 89 20 148/88 91 L 01/16/23 14:40 24 01/16/23 14:26 98.4 F 87 18 156/90 93 L Intake and Output 01/16/23 01/17/23 01/17/23 22:59 06:59 14:59 Intake Total 10 10 128 Output Total 250 300 Balance 10 -240 -172 Intake: IV 10 10 10 Invasive Line 2 10 10 10 Oral 118 Output: Urine 250 300 Other: Voiding Method Urinal Urinal Weight 88.451 kg - Constitutional General appearance: obese - Cardiovascular Rhythm: regular - Psychiatric Psychiatric: A&O x's 3 Multiple bruises on both arms and on the forehead Positive tenderness in the right chest wall. Results Results: The chest x-ray showed broken ribs on the right side, ribs #2, 3, 4 laterally with no pneumothorax. CBC & Chem 7: 01/17/23 07:48 01/16/23 20:04 Labs: Abnormal Lab Results - Last 24 Hours (Table) 01/16/23 01/17/23 Range/Units 20:04 07:48 Lymphocytes # 0.4 L (1.0-4.8) k/uL BUN 26 H (9-20) mg/dL Creatinine 1.43 H (0.66-1.25) mg/dL Glucose 116 H (74-99) mg/dL Assessment and Plan Plan: Given the patient's history of drug abuse I think he might benefit from an interventional pain procedure namely serratus anterior block as an opioid saving procedure. The block however has temporary effect may last for 18-24 hours.
[2023-01-17 11:29] LABS: Glucose,Whole Blood 208 mg/dL (70-110)
[2023-01-17] MEDS ORDERED: ROPIVACAINE 5 MG/ML 20 ML AMPULE ONE (14:34)
--- NOTE | 2023-01-17 14:58 | P.PCN ---
Date of Procedure: 01/17/23 Preoperative Diagnosis: Right chest wall pain due to rib fractures 4 ribs #2, 3, 4 Postoperative Diagnosis: Same as above Procedure(s) Performed: Right serratus anterior block with ultrasound guidance Anesthesia: local Surgeon: Ursual Lewis Pathology: none sent Condition: stable Disposition: floor Description of Procedure: The patient was brought into the procedure room and placed in the left lateral decubitus position. ASA monitors were applied. Skin was prepped with ChloraPrep and draped in a sterile manner. Skin was localized with lidocaine 1%. Ultrasound guidance was used to identify the level between the serratus anterior muscle and the tail of the latissimus dorsi muscle. I then used 22- gauge 3-1/2 inch Quincke needle to go in between these 2 muscles I injected 2 MLS of ropivacaine 0.25%. After that I also injected beneath the serratus anterior muscle ,between the sixth rib and the serratus anterior muscle. 20 MLS of ropivacaine 0.25% was injected at this level to. The patient tolerated procedure well and was taken back to his room on the floor in stable condition.
--- NOTE | 2023-01-17 16:09 | P.GSHP ---
History of Present Illness H&P Date: 01/17/23 Patient was seen and examined at 10 AM this morning CHIEF COMPLAINT: Fall with rib fracture HISTORY OF PRESENT ILLNESS: This is a 67-year-old male who presented to the ER after a trip walking up the stairs while he was carrying a bag. He reports landing on a right-sided rib cage and his face. He denies any loss of consciousness. Denies being on any blood thinners. He has been seen by pain service and scheduled for a pain block. Computed tomography scan of the chest that showed nondisplaced right rib fractures of 2, 3 and fourth rib. Patient has been on 3 L satting 97%. Patient does have multiple facial abrasions. Patient denies any abdominal pain. Denies any new pains. Patient seen and examined with Dr. Connell PAST MEDICAL HISTORY: Hep C liver disease, hypertension PAST SURGICAL HISTORY: See below MEDICATIONS: See below ALLERGIES: See below SOCIAL HISTORY: No illicit drug use. REVIEW OF SYSTEMS: CONSTITUTIONAL: Denies fever or chills. HEENT: Denies blurred vision, vision changes, or eye pain. Denies hemoptysis CARDIOVASCULAR: Denies chest pain or pressure. RESPIRATORY: No shortness of breath. GASTROINTESTINAL: See HPI for pertinent findings HEMATOLOGIC: Denies bleeding disorders. GENITOURINARY: Denies any blood in urine or increased urinary frequency. SKIN: Denies pruitis. Denies rash. PHYSICAL EXAM: VITAL SIGNS: Reviewed GENERAL: Well-developed in no acute distress. HEENT: Patient has some gapping along the forehead and right eyebrow. No s clera icterus. Extraocular movements grossly intact. Moist buccal mucosa. Head is atraumatic, normocephalic. No nasal drainage. Chest: Tenderness on palpation of the right chest wall ABDOMEN: Soft. Nondistended. Nontender NEUROLOGIC: Alert and oriented. Cranial nerves II through XII grossly intact. Extremities: Multiple small abrasions noted on the right extremity LABORATORY DATA: WBC 6.0 hgb 14.3 platelets 204 Sodium 139 potassium 4.6 creatinine 1.43 Glucose 116 LFTs normal IMAGING: Computed tomography scan of head and cervical spine no acute intracranial abnormality seen. Mild ventriculomegaly likely due to central cerebral atrophy. Correlate to exclude a component of NPH. Background mild to moderate burden of chronic small vessel ischemic changes. No acute fracture cervical spine. Moderate multilevel spondylitic change. Degenerative grade 1 anterolisthesis of C4 to C5 and C7 to T1 Computed tomography scan of chest nondisplaced fractures of the right lateral second, third and fourth ribs. Associated subcutaneous chest wall bruising and soft tissue swelling. Chronic pleural thickening and calcifications posterior mid and lower lungs. Either asbestos-related pleural disease processes sequelae of prior empyemas or pneumothoraces. Significant narrowing of the right bronchus intermedius suggesting underlying BRCA1 lesion. There is pulmonary arterial hypertension. ASSESSMENT: 1. Fall with trauma to right ribs 2. Nondisplaced fracture of the right lateral second, third and fourth ribs 3. Facial abrasions PLAN: -Continue pain management -Patient scheduled for epidural block with pain service -Resume patient's Suboxone -Continue incentive spirometer -Encourage patient to ambulate -Continue regular diet -Continue monitoring oxygen saturation -Pulmonary service, pain service and medicine on consult Physician Software Requirements Engineer note has been reviewed by physician. Signing provider agrees with the documented findings, assessment, and plan of care. Past Medical History Past Medical History: Hypertension, Liver Disease Additional Past Medical History / Comment(s): HEP C; HX OF DIALYSIS PER PT, NOW OFF. History of Any Multi-Drug Resistant Organisms: MRSA Date of last positivie culture/infection: 2007 MDRO Source:: Blood/Bone Past Surgical History: Cholecystectomy, Hernia Repair, Tonsillectomy Additional Past Surgical History / Comment(s): COLONOSCOPY. Umbilical and Inguinal surgery x4 Past Anesthesia/Blood Transfusion Reactions: No Reported Reaction Past Psychological History: Anxiety, Panic Disorder Smoking Status: Current some day smoker Past Alcohol Use History: Daily Additional Past Alcohol Use History / Comment(s): STATES ABOUT 3-4 shots of captian aubrie per day Past Drug Use History: None Reported Additional Drug Use History / Comment(s): Methadone for opiates taken for severe back pain. - Past Family History Mother Family Medical History: Cancer Additional Family Medical History / Comment(s): of colon CA Father Family Medical History: Cancer Additional Family Medical History / Comment(s): Colostomy from colon CA Medications and Allergies Home Medications Medication Instructions Recorded Confirmed Type ALPRAZolam [Xanax] 0.5 mg PO TID 01/16/23 01/16/23 History Buprenorphine/Naloxone 8Mg/2Mg 1 film SL TID 01/16/23 01/16/23 History [Suboxone 8-2Mg Film] Furosemide [Lasix] 40 mg PO DAILY PRN 01/16/23 01/16/23 History Allergies Allergy/AdvReac Type Severity Reaction Status Date / Time Penicillins Allergy Unknown Verified 01/16/23 20:51 Childhood Surgical - Exam Vital Signs Temp Pulse Resp BP Pulse Ox 98.4 F 87 18 156/90 93 L 01/16/23 14:26 01/16/23 14:26 01/16/23 14:26 01/16/23 14:26 01/16/23 14:26 Results - Labs 01/17/23 07:48 01/16/23 20:04 Abnormal Lab Results - Last 24 Hours (Table) 01/16/23 01/17/23 Range/Units 20:04 07:48 Lymphocytes # 0.4 L (1.0-4.8) k/uL BUN 26 H (9-20) mg/dL Creatinine 1.43 H (0.66-1.25) mg/dL Glucose 116 H (74-99) mg/dL Diabetes panel 01/16/23 Range/Units 20:04 Sodium 139 (137-145) mmol/L Potassium 4.6 (3.5-5.1) mmol/L Chloride 98 (98-107) mmol/L Carbon Dioxide 30 (22-30) mmol/L BUN 26 H (9-20) mg/dL Creatinine 1.43 H (0.66-1.25) mg/dL Glucose 116 H (74-99) mg/dL Calcium 9.1 (8.4-10.2) mg/dL AST 39 (17-59) U/L ALT 35 (4-49) U/L Alkaline Phosphatase 85 (38-126) U/L Total Protein 7.7 (6.3-8.2) g/dL Albumin 4.5 (3.5-5.0) g/dL Calcium panel 01/16/23 Range/Units 20:04 Calcium 9.1 (8.4-10.2) mg/dL Albumin 4.5 (3.5-5.0) g/dL Pituitary panel 01/16/23 Range/Units 20:04 Sodium 139 (137-145) mmol/L Potassium 4.6 (3.5-5.1) mmol/L Chloride 98 (98-107) mmol/L Carbon Dioxide 30 (22-30) mmol/L BUN 26 H (9-20) mg/dL Creatinine 1.43 H (0.66-1.25) mg/dL Glucose 116 H (74-99) mg/dL Calcium 9.1 (8.4-10.2) mg/dL Adrenal panel 01/16/23 Range/Units 20:04 Sodium 139 (137-145) mmol/L Potassium 4.6 (3.5-5.1) mmol/L Chloride 98 (98-107) mmol/L Carbon Dioxide 30 (22-30) mmol/L BUN 26 H (9-20) mg/dL Creatinine 1.43 H (0.66-1.25) mg/dL Glucose 116 H (74-99) mg/dL Calcium 9.1 (8.4-10.2) mg/dL Total Bilirubin 1.2 (0.2-1.3) mg/dL AST 39 (17-59) U/L ALT 35 (4-49) U/L Alkaline Phosphatase 85 (38-126) U/L Total Protein 7.7 (6.3-8.2) g/dL Albumin 4.5 (3.5-5.0) g/dL
[2023-01-17 16:36] LABS: Glucose,Whole Blood 312 mg/dL (70-110)
[2023-01-17] MEDS: INSULIN ASPART (NovoLOG) 100 UNIT/ML VIAL SQ SCH ×2 (16:55→21:02)
[2023-01-17 20:02] LABS: Glucose,Whole Blood 199 mg/dL (70-110)
[2023-01-17] MEDS: AZITHROMYCIN 500 MG TAB PO SCH (21:02)
[2023-01-18] MEDS: methylPREDNISolone SOD SUCCI 125 MG/2 ML VIAL IV SCH ×4 (00:24→16:53)
[2023-01-18] MEDS: MORPHINE SULFATE 4 MG/ML SYRINGE IVP PRN ×4 (06:03→22:20)
[2023-01-18 06:04] LABS: Glucose,Whole Blood 172 mg/dL (70-110)
[2023-01-18] MEDS: INSULIN ASPART (NovoLOG) 100 UNIT/ML VIAL SQ SCH ×4 (06:07→21:59)
[2023-01-18] MEDS: ALPRAZolam 0.5 MG TAB PO PRN ×2 (06:44→15:10)
[2023-01-18] MEDS: BUDESONIDE 1 MG/2 ML NEBU INHALATION SCH ×2 (07:48→19:39)
[2023-01-18] MEDS: IPRATROPIUM-ALBUTEROL 3 ML NEB INHALATION SCH ×4 (07:48→19:39)
[2023-01-18] MEDS: FORMOTEROL FUMARATE 20 MCG/2 ML NEBU INHALATION SCH ×2 (07:48→19:39)
[2023-01-18] MEDS ORDERED: LORazepam 1 MG TAB PO PRN ×2 (10:57)
[2023-01-18] MEDS ORDERED: LORazepam 0.5 MG TAB PO PRN (10:57)
[2023-01-18] MEDS ORDERED: THIAMINE 100 MG/ML 2 ML VIAL IM STA (10:57)
[2023-01-18] MEDS ORDERED: ACETAMINOPHEN TAB 500 MG TAB PO SCH (11:00)
--- NOTE | 2023-01-18 11:13 | P.PN ---
Subjective Progress Note Date: 01/18/23 On today's evaluation of 01/18/2023, the patient is laying comfortably in bed on room air oxygen. The patient on bronchodilators and steroids. The patient is also receiving pain control with morphine. The pain is currently approximately 7/10. He is using the incentive spirometer. No recent blood work from today. He was seen by anesthesia and the patient was given a right-sided nerve block under ultrasound guidance. Objective - Vital Signs Vital signs: Vital Signs Temp 97.8 F 01/18/23 08:26 Pulse 87 01/18/23 08:26 Resp 18 01/18/23 08:26 BP 147/90 01/18/23 08:26 Pulse Ox 97 01/18/23 08:26 FiO2 Intake & Output 01/17/23 01/18/23 01/18/23 18:59 06:59 18:59 Intake Total 618 20 190 Output Total 400 Balance 218 20 190 Intake: IV 20 20 10 Invasive Line 2 20 10 Invasive Line 3 10 10 Oral 598 180 Output: Urine 400 Other: Voiding Method Urinal Urinal Urinal # Voids 1 2 - Exam GENERAL EXAM: Alert, 67-year-old white male, comfortable in no apparent distress. Room air oxygen HEAD: Normocephalic and ecchymotic bruising of the frontal forehead and left periorbital area EYES: Normal reaction of pupils, equal size. NOSE: Clear with pink turbinates. THROAT: No erythema or exudates. NECK: No masses, no JVD. CHEST: No chest wall deformity. Facial grimacing with palpation of the right lateral chest LUNGS: Equal air entry with expiratory wheezes heard throughout. no crackles, rhonchi or focal dullness. CVS: S1 and S2 normal with no audible murmur, regular rhythm. No extra heart sounds ABDOMEN: No hepatosplenomegaly, active bowel sounds, no guarding or rigidity. SPINE: No scoliosis or deformity SKIN: No rashes. Generalized bruising. Bilateral lower extremity erythema and xerosis CENTRAL NERVOUS SYSTEM: No focal deficits, tone is normal in all 4 extremities. EXTREMITIES: There is no peripheral edema, clubbing, or cyanosis. Peripheral pulses are intact. - Labs CBC & Chem 7: 01/17/23 07:48 01/16/23 20:04 Labs: Abnormal Lab Results - Last 24 Hours (Table) 01/17/23 01/17/23 01/17/23 Range/Units 11:27 16:24 20:00 POC Glucose (mg/dL) 208 H 312 H 199 H (70-110) mg/dL 01/18/23 Range/Units 06:02 POC Glucose (mg/dL) 172 H (70-110) mg/dL Assessment and Plan Assessment: Fall sustaining multiple rib fractures of the right lateral second, third, and fourth ribs. Chest CT also showed associated subcutaneous chest wall bruising and soft tissue swelling. Patient has a nerve block for right-sided chest wall pain and the patient is also morphine. Pain is around 7/10 in severity. Using incentive spirometer. There is also an area of bruising over the right axillary area. Patient also has skin bruising over the forehead and left temporal area. Acute exacerbation of COPD Acute hypoxic respiratory failure secondary to above, currently on 4 L nasal cannula Acute on chronic kidney disease, creatinine is currently 1.43. Patient has required transient hemodialysis in the past. Hypertension Pulmonary hypertension Possible bronchomalacia History of pulmonary asbestosis Chronic nicotine dependence, with over [id number] history History of bilateral lower extremity cellulitis status post completion of outpatient antibiotic Hepatitis C History of opiate abuse, currently on Suboxone outpatient Plan: Continue supplemental oxygen maintain oxygen saturation 92% or greater, currently on room air oxygen Encourage incentive spirometer He is quite bronchospastic, start patient on a combination of bronchodilators, budesonide, formoterol, Solu-Medrol and will continue treatment for another 24 hours Smoking cessation encouraged Morphine for pain control Nerve block has been performed We will continue to follow
[2023-01-18 12:06] LABS: Glucose,Whole Blood 227 mg/dL (70-110)
--- NOTE | 2023-01-18 13:42 | P.PN ---
Subjective Progress Note Date: 01/18/23 CHIEF COMPLAINT: Fall with rib fracture HISTORY OF PRESENT ILLNESS: Patient continues to complain of right-sided rib pain. He did receive the pain block from pain service. However, patient is still requiring the IV morphine. Per nursing staff patient did have an episode of sweating early this morning. Patient does report a history of daily alcohol use. Patient reports drinking rum daily. Afebrile. Patient followed by pulmonary service to recommending 24 hours of Solu-Medrol. Patient denies any new pain. Patient has been requiring oxygen. They're trying to wean him off oxygen. PHYSICAL EXAM: VITAL SIGNS: Reviewed. GENERAL: Well-developed in no acute distress. HEENT: No sclera icterus. Extraocular movements grossly intact. Moist buccal mucosa. Head is atraumatic, normocephalic. ABDOMEN: Soft. Nondistended. Nontender. NEUROLOGIC: Alert and oriented. Cranial nerves II through XII grossly intact. ASSESSMENT: 1. Fall with trauma to right ribs 2. Nondisplaced fracture of the right lateral second, third and fourth ribs 3. Facial abrasions 4. History of opiate abuse and on Suboxone outpatient PLAN: -Encouraged patient to use incentive spirometer -Encouraged patient to increase activity level -Try to wean off of O2 -Continue to monitor oxygen saturation, keep oxygen saturation 92% or greater -Continue pain management -Tylenol scheduled ordered for pain. Patient unable to get Suboxone from home -Add GI prophylaxis Pepcid and DVT prophylaxis subcu heparin Physician Treatment Plant Mechanic note has been reviewed by physician. Signing provider agrees with the documented findings, assessment, and plan of care. Objective - Vital Signs Vital signs: Vital Signs Temp 97.8 F 01/18/23 08:26 Pulse 74 01/18/23 12:26 Resp 16 01/18/23 12:26 BP 144/90 01/18/23 12:26 Pulse Ox 91 L 01/18/23 12:26 FiO2 Intake & Output 01/17/23 01/18/23 01/18/23 18:59 06:59 18:59 Intake Total 618 20 190 Output Total 400 Balance 218 20 190 Intake: IV 20 20 10 Invasive Line 2 20 10 Invasive Line 3 10 10 Oral 598 180 Output: Urine 400 Other: Voiding Method Urinal Urinal Urinal # Voids 1 2 - Labs CBC & Chem 7: 01/17/23 07:48 05/08/23 20:04 Labs: Abnormal Lab Results - Last 24 Hours (Table) 01/17/23 01/17/23 01/18/23 Range/Units 16:24 20:00 06:02 POC Glucose (mg/dL) 312 H 199 H 172 H (70-110) mg/dL 01/18/23 Range/Units 12:05 POC Glucose (mg/dL) 227 H (70-110) mg/dL
[2023-01-18] MEDS ORDERED: HYDROcodone/APAP 5-325MG 1 EACH TAB PO PRN (14:45)
[2023-01-18] MEDS: FAMOTIDINE 20 MG TAB PO SCH ×2 (15:08→20:02)
[2023-01-18] MEDS: FOLIC ACID 1 MG TAB PO SCH (15:08)
[2023-01-18] MEDS: MULTIVITAMINS, THERA 1 EACH TAB PO SCH (15:08)
[2023-01-18] MEDS: SUBOXONE SUBLINGUAL SCH ×2 (15:51→21:55)
[2023-01-18 16:36] LABS: Glucose,Whole Blood 196 mg/dL (70-110)
[2023-01-18] MEDS: LORazepam 1 MG TAB PO PRN ×2 (17:26→20:02)
[2023-01-18] MEDS ORDERED: FUROSEMIDE 40 MG TAB PO PRN (17:29)
[2023-01-18] MEDS: HEPARIN SODIUM,PORCINE/PF 5,000 UNIT/0.5 ML SYRINGE SQ SCH (20:02)
[2023-01-18] MEDS: AZITHROMYCIN 500 MG TAB PO SCH (20:02)
[2023-01-18 20:03] LABS: Glucose,Whole Blood 163 mg/dL (70-110)
[2023-01-18] MEDS: ALPRAZolam 0.5 MG TAB PO SCH (21:55)
[2023-01-19] MEDS: methylPREDNISolone SOD SUCCI 125 MG/2 ML VIAL IV SCH ×3 (00:43→12:17)
[2023-01-19] MEDS: MORPHINE SULFATE 4 MG/ML SYRINGE IVP PRN (05:42)
[2023-01-19] MEDS: INSULIN ASPART (NovoLOG) 100 UNIT/ML VIAL SQ SCH ×4 (05:45→20:34)
[2023-01-19 05:47] LABS: Glucose,Whole Blood 150 mg/dL (70-110)
[2023-01-19] MEDS: BUDESONIDE 1 MG/2 ML NEBU INHALATION SCH ×2 (07:52→19:33)
[2023-01-19] MEDS: IPRATROPIUM-ALBUTEROL 3 ML NEB INHALATION SCH ×4 (07:52→19:33)
[2023-01-19] MEDS: FORMOTEROL FUMARATE 20 MCG/2 ML NEBU INHALATION SCH ×2 (07:52→19:33)
[2023-01-19] MEDS: THIAMINE 100 MG TAB PO SCH (08:51)
[2023-01-19] MEDS: FAMOTIDINE 20 MG TAB PO SCH ×2 (08:51→19:58)
[2023-01-19] MEDS: MULTIVITAMINS, THERA 1 EACH TAB PO SCH (08:51)
[2023-01-19] MEDS: ALPRAZolam 0.5 MG TAB PO SCH ×3 (08:52→19:57)
[2023-01-19] MEDS: HEPARIN SODIUM,PORCINE/PF 5,000 UNIT/0.5 ML SYRINGE SQ SCH ×2 (08:52→19:58)
[2023-01-19] MEDS: FOLIC ACID 1 MG TAB PO SCH (08:52)
[2023-01-19] MEDS: SUBOXONE SUBLINGUAL SCH ×3 (09:02→21:42)
[2023-01-19 09:38] LABS: Calcium 8.9 mg/dL (8.4-10.2); Potassium 4.9 mmol/L (3.5-5.1)
[2023-01-19 12:13] LABS: Glucose,Whole Blood 137 mg/dL (70-110)
--- NOTE | 2023-01-19 14:03 | P.PN ---
Subjective Progress Note Date: 01/19/23 On today's evaluation of 01/18/2023, the patient is laying comfortably in bed on room air oxygen. The patient on bronchodilators and steroids. The patient is also receiving pain control with morphine. The pain is currently approximately 7/10. He is using the incentive spirometer. No recent blood work from today. He was seen by anesthesia and the patient was given a right-sided nerve block under ultrasound guidance. On today's evaluation of 01/19/2023, the patient is on room air oxygen. Pain is around 5 out of 10 in severity. Using the incentive spirometer. Still being treated for an acute COPD exacerbation with a combination of bronchodilators and steroids. He is obviously less bronchospastic and wheezy. He is on morphine on an as-needed basis for pain control. He was also given a nerve block by anesthesia with ultrasound guidance. No altered mentation. The BUN is at 48 with a creatinine of 1.45 and a sodium level is at 137. He has chronic kidney disease Objective - Vital Signs Vital signs: Vital Signs Temp 97.9 F 01/19/23 08:48 Pulse 78 01/19/23 08:48 Resp 16 01/19/23 08:48 BP 114/78 01/19/23 08:48 Pulse Ox 90 L 01/19/23 08:48 FiO2 Intake & Output 01/18/23 01/19/23 01/19/23 18:59 06:59 18:59 Intake Total 560 20 10 Output Total 600 200 Balance 560 -580 -190 Intake: IV 20 20 10 Invasive Line 3 20 20 10 Oral 540 Output: Urine 600 200 Other: Voiding Method Urinal Urinal Urinal # Voids 1 - Exam GENERAL EXAM: Alert, 67-year-old white male, comfortable in no apparent distress. Room air oxygen HEAD: Normocephalic and ecchymotic bruising of the frontal forehead and left periorbital area EYES: Normal reaction of pupils, equal size. NOSE: Clear with pink turbinates. THROAT: No erythema or exudates. NECK: No masses, no JVD. CHEST: No chest wall deformity. Facial grimacing with palpation of the right lateral chest LUNGS: Equal air entry with expiratory wheezes heard throughout. no crackles, rhonchi or focal dullness. CVS: S1 and S2 normal with no audible murmur, regular rhythm. No extra heart sounds ABDOMEN: No hepatosplenomegaly, active bowel sounds, no guarding or rigidity. SPINE: No scoliosis or deformity SKIN: No rashes. Generalized bruising. Bilateral lower extremity erythema and xerosis CENTRAL NERVOUS SYSTEM: No focal deficits, tone is normal in all 4 extremities. EXTREMITIES: There is no peripheral edema, clubbing, or cyanosis. Peripheral pulses are intact. - Labs CBC & Chem 7: 01/17/23 07:48 01/19/23 08:57 Labs: Abnormal Lab Results - Last 24 Hours (Table) 01/18/23 01/18/23 01/18/23 Range/Units 12:05 16:34 20:01 BUN (9-20) mg/dL Creatinine (0.66-1.25) mg/dL Glucose (74-99) mg/dL POC Glucose (mg/dL) 227 H 196 H 163 H (70-110) mg/dL 01/19/23 01/19/23 Range/Units 05:43 08:57 BUN 48 H (9-20) mg/dL Creatinine 1.45 H (0.66-1.25) mg/dL Glucose 183 H (74-99) mg/dL POC Glucose (mg/dL) 150 H (70-110) mg/dL Assessment and Plan Assessment: Fall sustaining multiple rib fractures of the right lateral second, third, and fourth ribs. Chest CT also showed associated subcutaneous chest wall bruising and soft tissue swelling. Patient has a nerve block for right-sided chest wall pain and the patient is also morphine. Pain is around 5/10 in severity. Using incentive spirometer. No new complaints compared to yesterday and his breathing is quite comfortable at this point in time. There is also an area of bruising over the right axillary area. Patient also has skin bruising over the forehead and left temporal area. Acute exacerbation of COPD Acute hypoxic respiratory failure secondary to above, currently on 4 L nasal cannula Acute on chronic kidney disease, creatinine is currently 1.43. Patient has required transient hemodialysis in the past. Hypertension Pulmonary hypertension Possible bronchomalacia History of pulmonary asbestosis Chronic nicotine dependence, with over [id number] history History of bilateral lower extremity cellulitis status post completion of outpatient antibiotic Hepatitis C History of opiate abuse, currently on Suboxone outpatient Plan: Continue supplemental oxygen maintain oxygen saturation 92% or greater, currently on room air oxygen Encourage incentive spirometer He is quite bronchospastic, start patient on a combination of bronchodilators, budesonide, formoterol, Discontinue the IV Solu-Medrol. The patient prednisone burst taper Smoking cessation encouraged Morphine for pain control Nerve block has been performed We will continue to follow
--- NOTE | 2023-01-19 14:39 | P.DS ---
Providers Date of admission: 01/16/23 20:04 Expected date of discharge: 01/19/23 Attending physician: Sanjay Connell Consults: 01/16/23 20:04 Consult Physician Routine Consulting Provider: [facility] Consult Reason/Comments: Pulmonary Contusion Do you want consulting provider notified?: Yes 01/17/23 07:55 Consult Physician Routine Consulting Provider: Michael Ruelas Consult Reason/Comments: medical management Do you want consulting provider notified?: Yes Primary care physician: Michael Ruelas Hospital Course: Discharge diagnosis 1. Fall with trauma to right ribs 2. Nondisplaced fracture of the right lateral second, third and fourth ribs 3. Facial abrasions 4. History of opiate abuse and on Suboxone outpatient 5. Acute COPD exacerbation Hospital course This is a 67-year-old male who presented to the ER after a trip walking up the stairs while he was carrying a bag. He reports landing on a right-sided rib cage and his face. He denies any loss of consciousness. Computed tomography scan of the chest that showed nondisplaced right rib fractures of 2, 3 and fourth rib. Patient was seen by pain service and did receive a pain block. He was restarted on his Suboxone. His pain is controlled. He is tolerating diet. He has been up and ambulating. He is on room air. He has been cleared by consulting physicians for discharge. Patient will continue with his Suboxone as prescribed by his pain physician. Patient is afebrile. He is stable for discharge. Please refer to chart for any further details. Physician Dinkey Operator note has been reviewed by physician. Signing provider agrees with the documented findings, assessment, and plan of care. Patient Condition at Discharge: Stable Plan - Discharge Summary Discharge Rx Participant: No New Discharge Prescriptions: Continue Furosemide [Lasix] 40 mg PO DAILY PRN PRN Reason: Edema Buprenorphine/Naloxone 8Mg/2Mg [Suboxone 8-2Mg Film] 1 film SL TID ALPRAZolam [Xanax] 0.5 mg PO TID Discharge Medication List ALPRAZolam [Xanax] 0.5 mg PO TID 01/16/23 [History] Buprenorphine/Naloxone 8Mg/2Mg [Suboxone 8-2Mg Film] 1 film SL TID 01/16/23 [History] Furosemide [Lasix] 40 mg PO DAILY PRN 01/16/23 [History] Follow up Appointment(s)/Referral(s): Michael Ruelas MD [Primary Care Provider] - 1-2 days Booker Lezama MD [STAFF PHYSICIAN] - 1 Week Activity/Diet/Wound Care/Special Instructions: Continue to use incentive spirometer 10 times every hour Continue pain medication from home as prescribed per patient's pain clinic. Discharge/Stand Alone Forms: Anes Pain/[facility] Instructions Discharge Disposition: HOME SELF-CARE
[2023-01-19] MEDS: predniSONE 20 MG TAB PO SCH (16:37)
[2023-01-19 16:42] LABS: Glucose,Whole Blood 181 mg/dL (70-110)
[2023-01-19 20:11] LABS: Glucose,Whole Blood 132 mg/dL (70-110)
[2023-01-20 05:56] LABS: Glucose,Whole Blood 105 mg/dL (70-110)
[2023-01-20 06:10] VITALS: RESP 18
[2023-01-20] MEDS: INSULIN ASPART (NovoLOG) 100 UNIT/ML VIAL SQ SCH ×2 (06:12→11:45)
--- NOTE | 2023-01-20 06:22 | CONS ---
CONSULTATION Patient of Dr. Connell. CHIEF COMPLAINT: Fall with right-sided chest pain. HISTORY OF PRESENT ILLNESS: This gentleman apparently fell at home and presented to the emergency room with right- sided chest pain. He was found to have 3 right-sided rib fractures. He also has facial contusions. He denies any seizure activity, incontinence, etc. Review of systems, past medical history, family history, and personal and social histories can all be found in his admitting summary. PHYSICAL EXAMINATION: VITAL SIGNS: Blood pressure is 138/86 with a pulse of 78, respirations of 32, and he is afebrile. GENERAL: Appeared to be disheveled and had multiple facial abrasions. HEENT: Pupils equal, round, reactive and gaze was conjugate. CHEST: Clear. Breath sounds are somewhat diminished. CARDIAC: Normal. ABDOMEN: Soft and nontender. EXTREMITIES: Normal. NEUROLOGICAL: Intact. IMPRESSION: 1. Fall with 3 right-sided rib fractures. 2. Chronic obstructive pulmonary disease. 3. Facial abrasions and contusions. RECOMMENDATIONS: None at this time. His respiratory status will be closely followed. MMODL / IJN: [id number] /
--- NOTE | 2023-01-20 06:37 | PN ---
PROGRESS NOTE DATE OF SERVICE: 01/17/2023 CHIEF COMPLAINT: Right-sided rib fractures. HISTORY OF PRESENT ILLNESS: This gentleman is somewhat uncomfortable, but he is not having a great deal of shortness of breath. He had no chest pain. PHYSICAL EXAMINATION: CHEST: Demonstrates breath sounds on both sides. CARDIAC: Normal. ABDOMEN: Soft, nontender. IMPRESSION: Fall with right-sided rib fractures and facial abrasions. PLAN: 1. Continue to follow his pulmonary function and general ability to ambulate. 2. Follow blood sugars which are elevated. MMODL / IJN: [id number] /
[2023-01-20] MEDS: BUDESONIDE 1 MG/2 ML NEBU INHALATION SCH ×2 (07:49→08:07)
--- NOTE | 2023-01-20 07:49 | PN ---
PROGRESS NOTE DATE OF SERVICE: 01/18/2023 CHIEF COMPLAINT: Fall with multiple right-sided rib fractures. HISTORY OF PRESENT ILLNESS: This gentleman is comfortable and doing fairly well. He has had no shortness of breath. He has had no fever or chills. PHYSICAL EXAMINATION: CHEST: Breath sounds are heard bilaterally, but they are somewhat diminished. CARDIAC: Normal. ABDOMEN: Soft, nontender. HEENT: Facial abrasions are healing. IMPRESSION: Fall with 3 right-sided rib fractures and facial contusions. PLAN: Increase activity and probably home soon. Blood sugars will be monitored. MMODL / IJN: [id number] /
[2023-01-20] MEDS: FORMOTEROL FUMARATE 20 MCG/2 ML NEBU INHALATION SCH ×2 (07:50→08:07)
[2023-01-20] MEDS: IPRATROPIUM-ALBUTEROL 3 ML NEB INHALATION SCH ×2 (07:50→11:21)
[2023-01-20 09:08] VITALS: BP 142/83; TEMP 96.6
[2023-01-20] MEDS: THIAMINE 100 MG TAB PO SCH (09:08)
[2023-01-20] MEDS: SUBOXONE SUBLINGUAL SCH (09:08)
[2023-01-20] MEDS: ALPRAZolam 0.5 MG TAB PO SCH (09:08)
[2023-01-20] MEDS: FOLIC ACID 1 MG TAB PO SCH (09:08)
[2023-01-20] MEDS: predniSONE 20 MG TAB PO SCH (09:08)
[2023-01-20] MEDS: HEPARIN SODIUM,PORCINE/PF 5,000 UNIT/0.5 ML SYRINGE SQ SCH (09:09)
[2023-01-20] MEDS: MULTIVITAMINS, THERA 1 EACH TAB PO SCH (09:09)
[2023-01-20] MEDS: FAMOTIDINE 20 MG TAB PO SCH (09:09)
[2023-01-20 11:31] VITALS: PULSE 72
[2023-01-20 11:47] LABS: Glucose,Whole Blood 108 mg/dL (70-110)
--- NOTE | 2023-01-20 12:13 | P.PN ---
Subjective Progress Note Date: 01/20/23 On today's evaluation of 01/18/2023, the patient is laying comfortably in bed on room air oxygen. The patient on bronchodilators and steroids. The patient is also receiving pain control with morphine. The pain is currently approximately 7/10. He is using the incentive spirometer. No recent blood work from today. He was seen by anesthesia and the patient was given a right-sided nerve block under ultrasound guidance. On today's evaluation of 01/19/2023, the patient is on room air oxygen. Pain is around 5 out of 10 in severity. Using the incentive spirometer. Still being treated for an acute COPD exacerbation with a combination of bronchodilators and steroids. He is obviously less bronchospastic and wheezy. He is on morphine on an as-needed basis for pain control. He was also given a nerve block by anesthesia with ultrasound guidance. No altered mentation. The BUN is at 48 with a creatinine of 1.45 and a sodium level is at 137. He has chronic kidney disease On 01/20/2023, the patient's right-sided chest wall pain is around 2/ 10 in severity. No specific complaints. Laying comfortably in bed and the patient has no specific complaints. He is on room air oxygen. He is ambulating. He is using the [employer] spirometer. No other significant events overnight. Objective - Vital Signs Vital signs: Vital Signs Temp 96.6 F L 01/20/23 08:00 Pulse 84 01/20/23 08:35 Resp 18 01/20/23 08:00 BP 142/83 01/20/23 08:00 Pulse Ox 93 L 01/20/23 08:00 FiO2 Intake & Output 01/19/23 01/20/23 01/20/23 18:59 06:59 18:59 Intake Total 260 Output Total 500 Balance -240 Intake: IV 20 Invasive Line 3 20 Oral 240 Output: Urine 500 Other: Voiding Method Urinal Urinal - Exam GENERAL EXAM: Alert, 67-year-old white male, comfortable in no apparent distress. Room air oxygen HEAD: Normocephalic and ecchymotic bruising of the frontal forehead and left periorbital area EYES: Normal reaction of pupils, equal size. NOSE: Clear with pink turbinates. THROAT: No erythema or exudates. NECK: No masses, no JVD. CHEST: No chest wall deformity. Facial grimacing with palpation of the right lateral chest LUNGS: Equal air entry with expiratory wheezes heard throughout. no crackles, rhonchi or focal dullness. CVS: S1 and S2 normal with no audible murmur, regular rhythm. No extra heart sounds ABDOMEN: No hepatosplenomegaly, active bowel sounds, no guarding or rigidity. SPINE: No scoliosis or deformity SKIN: No rashes. Generalized bruising. Bilateral lower extremity erythema and xerosis CENTRAL NERVOUS SYSTEM: No focal deficits, tone is normal in all 4 extremities. EXTREMITIES: There is no peripheral edema, clubbing, or cyanosis. Peripheral pulses are intact. - Labs CBC & Chem 7: 01/17/23 07:48 01/19/23 08:57 Labs: Abnormal Lab Results - Last 24 Hours (Table) 01/19/23 01/19/23 01/19/23 Range/Units 12:11 16:41 20:10 POC Glucose (mg/dL) 137 H 181 H 132 H (70-110) mg/dL Assessment and Plan Assessment: Fall sustaining multiple rib fractures of the right lateral second, third, and fourth ribs. Chest CT also showed associated subcutaneous chest wall bruising and soft tissue swelling. Patient has a nerve block for right-sided chest wall pain and the patient is also morphine. Pain is around 5/10 in severity. Using incentive spirometer. No new complaints compared to yesterday and his breathing is quite comfortable at this point in time. There is also an area of bruising over the right axillary area. Patient also has skin bruising over the forehead and left temporal area. Acute exacerbation of COPD Acute hypoxic respiratory failure secondary to above, currently on 4 L nasal cannula Acute on chronic kidney disease, creatinine is currently 1.43. Patient has required transient hemodialysis in the past. Hypertension Pulmonary hypertension Possible bronchomalacia History of pulmonary asbestosis Chronic nicotine dependence, with over [id number] history History of bilateral lower extremity cellulitis status post completion of outp atient antibiotic Hepatitis C History of opiate abuse, currently on Suboxone outpatient Plan: Clinically improving Pain is under good control Currently on room air oxygen Encourage incentive spirometer He is quite bronchospastic, start patient on a combination of bronchodilators, budesonide, formoterol, Completing a course of prednisone burst taper Smoking cessation encouraged Morphine for pain control Nerve block has been performed We will continue to follow Discharge planning is in progress
--- NOTE | 2023-01-20 23:22 | PN ---
PROGRESS NOTE CHIEF COMPLAINT: Fall with right-sided rib fractures and facial lacerations. HISTORY OF PRESENT ILLNESS: Mr. Arango is doing well. He is not having any particular shortness of breath. He is probably going home today. PHYSICAL EXAMINATION: HEENT: Abrasions on the face are improving. CHEST: Demonstrates good breath sounds bilaterally. CARDIAC: Normal. ABDOMEN: Soft, nontender. IMPRESSION: 1. Fall with facial lacerations and abrasions. 2. Three right-sided rib fractures. 3. Elevated blood sugars. PLAN: Probably home today. MMODL / IJN: [id number] /
--- NOTE | 2023-01-23 12:04 | CDI ---
Documentation Clarification Form Date: 01/23/2023 From: Janey Castellanos Admit Date: 01/16/2023 8:04:00 PM Patient Name: Henri Arango Visit Number: [id number] Discharge Date: 01/20/2023 12:30:00 PM ATTENTION: The Clinical Documentation Specialists (CDI) and [facility] Coding Staff appreciate your assistance in clarifying documentation. Please respond to the clarification below the line at the bottom and electronically sign. The CDI & [facility] Coding staff will review the response and follow-up if needed. Please note: Queries are made part of the Legal Health Record. If you have any questions, please contact the author of this message via ITS. Dr Michael Ruelas, Unspecified CKD is documented 01/17 Consult; 01/18, 01/19 & 01/20 Progress Note. Additional clarification regarding the stage of CKD is requested. History/Risk Factors: COPD, Cellulitis, Opioid Abuse, Hep C. Patients Historical BUN/CR/GFR 01/23/22 BUN 22, CR 1.52, GFR 47 Clinical Indicators: Hypertension, Previous Dialysis Current BUN/CR/GFR: 01/16 BUN 26, CR 1.43, GFR 50; 01/19 BUN 48, CR 1.45, GFR 49 Please clarify the stage of the CKD, if known: [ ] CKD Stage 1 (GFR > 90) [ ] CKD Stage 2 (GFR 60-89) [ ] CKD Stage 3 (GFR 30-59) [ ] CKD Stage 3a (GFR 45-59) [ ] CKD Stage 3b (GFR 30-44) [ ] CKD Stage 4 (GFR 15-29) [ ] CKD Stage 5 (GFR <15) [ ] ESRD [ ] Other, please specify [ ] Unable to determine MTDD
--- NOTE | 2023-01-23 23:20 | PN ---
PROGRESS NOTE DATE OF SERVICE: 01/19/2023 CHIEF COMPLAINT: Right rib fractures. HISTORY OF PRESENT ILLNESS: This gentleman is doing fairly well. Renal function has deteriorated slightly. His blood sugars are slightly elevated as well. PHYSICAL EXAMINATION: CHEST: Good breath sounds are heard on the right. Chest is clear. CARDIAC: Normal. ABDOMEN: Soft and nontender. IMPRESSION: 1. Right-sided rib fractures. 2. Elevated BUN and creatinine. 3. Elevated blood sugars. PLAN: Continue to follow, and if blood sugars do not improve, this will be addressed. MMODL / IJN: [id number] /
--- NOTE | 2023-02-03 02:08 | MISC ---
MISCELLANOUS REPORT GFR is 47, so that would be stage IIIA. MMODL / IJN: [id number] /
== END 2023-01-20 12:30 | disposition home or self-care (01) | DRG 183 ==
LOC: EC 14:18 → 3SCARD 20:04
PROVIDERS: ADMIT Surgery; ATTEND Surgery
PROC: 3E0T3BZ Introduction of Anesthetic Agent into Peripheral Nerves and Plexi, Percutaneous Approach (ICD-10-PCS; principal; 2023-01-17 12:00)
DX: S22.41XA Multiple fractures of ribs, right side, initial encounter for closed fracture (principal); J96.01 Acute respiratory failure with hypoxia; J44.1 Chronic obstructive pulmonary disease with (acute) exacerbation; L03.115 Cellulitis of right lower limb; L03.116 Cellulitis of left lower limb; I27.21 Secondary pulmonary arterial hypertension; J98.09 Other diseases of bronchus, not elsewhere classified; G93.89 Other specified disorders of brain; N18.31 Chronic kidney disease, stage 3a; F11.10 Opioid abuse, uncomplicated; J61 Pneumoconiosis due to asbestos and other mineral fibers; G31.9 Degenerative disease of nervous system, unspecified; B19.20 Unspecified viral hepatitis C without hepatic coma; I12.9 Hypertensive chronic kidney disease with stage 1 through stage 4 chronic kidney disease, or unspecified chronic kidney disease; M46.83 Other specified inflammatory spondylopathies, cervicothoracic region; S01.81XA Laceration without foreign body of other part of head, initial encounter; S60.812A Abrasion of left wrist, initial encounter; S60.811A Abrasion of right wrist, initial encounter; F10.90 Alcohol use, unspecified, uncomplicated; R73.9 Hyperglycemia, unspecified; F41.0 Panic disorder [episodic paroxysmal anxiety]; W10.9XXA Fall (on) (from) unspecified stairs and steps, initial encounter; Y92.008 Other place in unspecified non-institutional (private) residence as the place of occurrence of the external cause; Y93.01 Activity, walking, marching and hiking; F17.210 Nicotine dependence, cigarettes, uncomplicated; Z71.6 Tobacco abuse counseling; Z79.899 Other long term (current) drug therapy; Z86.14 Personal history of Methicillin resistant Staphylococcus aureus infection; Z88.0 Allergy status to penicillin
CPT/HCPCS: 36415; 64420; 70450; 71045; 71250; 72125; 76942; 80048; 80053; 83036; 85025; 85610; 85730; 93005; 94640; 94760; 96374; 99285

== ENCOUNTER 2023-03-13 22:15 | Observation (INO) | payer MEDICARE ==
--- NOTE | 2023-03-13 23:29 | ED ---
General Adult HPI - General Source: patient Mode of arrival: ambulatory Limitations: no limitations <Yanira Cruz - Last Filed: 03/22/23 16:28> - History of Present Illness Onset/Timin -: days(s) Location: chest Quality: dull Consistency: intermittent Improves with: none Worsens with: other (Cough) Associated Symptoms: chest pain, cough Treatments Prior to Arrival: none <Tucker Ulrich - Last Filed: 03/24/23 06:10> - General Stated complaint: possible pneumonia - History of Present Illness Initial comments: 68-year-old male presents emergency department chief complaint shortness of breath. Patient states that he is evaluated by his primary care physician last week and was told that he had pneumonia and he needed to come to the ER to be evaluated but he states that he is putting it off. (Yanira rCuz) - Related Data Home Medications Medication Instructions Recorded Confirmed Buprenorphine/Naloxone 8Mg/2Mg 1 film SL TID 01/16/23 03/14/23 [Suboxone 8-2Mg Film] ALPRAZolam [Xanax] 0.25 mg PO TID PRN 03/14/23 03/14/23 Previous Rx's Medication Instructions Recorded Albuterol Sulfate [Ventolin HFA] 2 puff INHALATION Q6H PRN #1 each 03/15/23 Budesonide-Formot 160-4.5 Mcg 2 puff INHALATION RT-BID #1 each 03/15/23 [Symbicort 160-4.5 Mcg Inhaler] amLODIPine [Norvasc] 2.5 mg PO DAILY #30 tab 03/15/23 methylPREDNISolone Dose Pack See Taper PO DIRECTED #1 tab 03/15/23 [Medrol Dose Pack] Allergies Allergy/AdvReac Type Severity Reaction Status Date / Time Penicillins Allergy Unknown Verified 03/14/23 15:01 Childhood Review of Systems ROS Other: All systems not noted in ROS Statement are negative. <Yanira Cruz - Last Filed: 03/22/23 16:28> ROS Other: All systems not noted in ROS Statement are negative. Constitutional: Denies: fever, chills, weakness Respiratory: Reports: as per HPI, cough, dyspnea. Denies: hemoptysis, stridor Cardiovascular: Reports: as per HPI, chest pain. Denies: palpitations, edema, syncope Gastrointestinal: Denies: abdominal pain, vomiting, diarrhea Genitourinary: Denies: dysuria, hematuria Skin: Denies: rash Neurological: Denies: weakness <SergTucker - Last Filed: 03/24/23 06:10> ROS Statement: Those systems with pertinent positive or pertinent negative responses have been documented in the HPI. Past Medical History Past Medical History: Hypertension, Liver Disease Additional Past Medical History / Comment(s): HEP C; HX OF DIALYSIS PER PT, NOW OFF. History of Any Multi-Drug Resistant Organisms: MRSA Date of last positivie culture/infection: 2007 MDRO Source:: Blood/Bone Past Surgical History: Cholecystectomy, Hernia Repair, Tonsillectomy Additional Past Surgical History / Comment(s): COLONOSCOPY. Umbilical and Inguinal surgery x4 Past Anesthesia/Blood Transfusion Reactions: No Reported Reaction Past Psychological History: Anxiety, Panic Disorder Smoking Status: Current some day smoker Past Alcohol Use History: Daily Past Drug Use History: None Reported - Past Family History Mother Family Medical History: Cancer Additional Family Medical History / Comment(s): of colon CA Father Family Medical History: Cancer Additional Family Medical History / Comment(s): Colostomy from colon CA <Daniel Cruzsey - Last Filed: 03/22/23 16:28> General Exam Limitations: no limitations <MarkajbrendaYanira - Last Filed: 03/22/23 16:28> General appearance: alert, in no apparent distress Head exam: Present: atraumatic, normocephalic Eye exam: Present: normal appearance. Absent: scleral icterus, conjunctival injection Neck exam: Present: normal inspection, full ROM Respiratory exam: Present: rales. Absent: respiratory distress, wheezes, rhonchi, stridor Cardiovascular Exam: Present: regular rate, normal rhythm, normal heart sounds. Absent: systolic murmur, diastolic murmur, rubs, gallop GI/Abdominal exam: Present: soft. Absent: distended, tenderness, guarding, rebound, rigid Extremities exam: Present: normal inspection, normal capillary refill. Absent: pedal edema, calf tenderness Back exam: Present: normal inspection. Absent: CVA tenderness (R), CVA tenderness (L) Neurological exam: Present: alert Skin exam: Present: warm, dry, intact. Absent: rash <Tucker Ulrich - Last Filed: 03/24/23 06:10> - General Exam Comments Initial Comments: Visual Physical Exam Vital signs reviewed General: Well-appearing, nontoxic, no acute distress. Head: Normocephalic, atraumatic Eyes: PERRLA, EOMI ENT: Airway patent Chest: Nonlabored breathing Skin: No visual rash, normal skin tone Neuro: Alert and oriented 3 Musculoskeletal: No gross abnormalities (Yanira Cruz) Course Vital Signs 03/13/23 03/14/23 03/14/23 23:24 01:00 01:24 Temperature 98.4 F Pulse Rate 77 63 71 Respiratory 24 24 Rate Blood Pressure 183/95 144/93 O2 Sat by Pulse 92 L 93 L Oximetry 03/14/23 03/14/23 03/14/23 01:33 02:00 07:39 Temperature Pulse Rate 66 91 65 Respiratory 20 22 Rate Blood Pressure 168/92 166/96 O2 Sat by Pulse 95 95 Oximetry 03/14/23 03/14/23 03/14/23 09:00 11:18 13:03 Temperature Pulse Rate 62 69 60 Respiratory 20 18 18 Rate Blood Pressure 166/98 167/113 156/98 O2 Sat by Pulse 97 94 L 97 Oximetry 03/14/23 03/14/23 03/14/23 13:19 13:31 15:08 Temperature Pulse Rate 60 64 64 Respiratory 18 Rate Blood Pressure 156/92 O2 Sat by Pulse 96 Oximetry EKG Findings - EKG Results: EKG: interpreted by ERMD, sinus rhythm (Rate 71 bpm), normal QRS - Blocks, Barn[place], Hypertrophy, ST Abn: QRS axis and voltage: left axis deviation (-30 to -90) (Borderline) Repolarization changes or abnormalities: nonspecific abnormality, ST segment, and/or T wave <Tucker Ulrich - Last Filed: 03/24/23 06:10> Medical Decision Making - Lab Data Result diagrams: 03/14/23 00:07 03/14/23 00:07 <Yanira Cruz - Last Filed: 03/22/23 16:28> - Lab Data Result diagrams: 03/14/23 00:07 03/14/23 00:07 <Tucker Ulrich - Last Filed: 03/24/23 06:10> - Medical Decision Making This patient is 68-year-old man here to have evaluation of dyspnea and suspected pneumonia. He had seen his primary physician and been directed to come emergency department but but the soft thinking he would get better. His symptoms did not improve so he does now present. The workup consistent with pneumonia the patient be admitted for antibiotic therapy The patient had chest x-ray which I interpreted to show right lower lobe infiltrate, no pneumothorax, no congestive heart failure. Was pt. sent in by a medical professional or institution (HILARY Veliz, GROUP ACCOUNT DIRECTOR, urgent care, hospital, or custodial...) When possible be specific @ -Patient directly here by his primary physician Did you speak to anyone other than the patient for history (EMS, parent, family, police, friend...)? What history was obtained from this source @ -[No] Did you review nursing and triage notes (agree or disagree)? Why? @ -[I reviewed and agree with nursing and triage notes] Were old charts reviewed (outside hosp., previous admission, EMS record, old EKG, old radiological studies, urgent care reports/EKG's, custodial records)? Report findings @ -[No old charts were reviewed] Differential Diagnosis (chest pain, altered mental status, abdominal pain women, abdominal pain men, vaginal bleeding, weakness, fever, dyspnea, syncope, headache, dizziness, GI bleed, back pain, seizure, CVA, palpatations, mental health, musculoskeletal)? @ -[Differential Dyspnea: Coronary syndrome, arrhythmia, tamponade, asthma, COPD, pulmonary embolism, pneumonia, pneumothorax, pulmonary effusion, anaphylaxis, diabetic ketoacidosis, flailed chest, pulmonary contusion, diaphragmatic rupture, anemia, neuromuscular, this is not meant to be an all-inclusive list. EKG interpreted by me (3pts min.). @ -[As above] X-rays interpreted by me (1pt min.). @ -[As above CT interpreted by me (1pt min.). @ -[None done] U/S interpreted by me (1pt. min.). @ -[None done] What testing was considered but not performed or refused? (CT, X-rays, U/S, labs)? Why? @ -[None] What meds were considered but not given or refused? Why? @ -[None] Did you discuss the management of the patient with other professionals (professionals i.e. , HILARY, GROUP ACCOUNT DIRECTOR, lab, RT, psych nurse, social worker masters, signal tester, teacher, resident medical officer, top case assembler)? Give summary @ -[Case discussed with admitting physician Was smoking cessation discussed for >3mins.? @ -[No] Was critical care preformed (if so, how long)? @ -[No] Were there social determinants of health that impacted care today? How? (Homelessness, low income, unemployed, alcoholism, drug addiction, transportation, low edu. Level, literacy, decrease access to med. care, alf, rehab)? @ -[No] Was there de-escalation of care discussed even if they declined (Discuss DNR or withdrawal of care, Hospice)? DNR status @ -[No] What co-morbidities impacted this encounter? (DM, HTN, Smoking, COPD, CAD, Cancer, CVA, ARF, Chemo, Hep., AIDS, mental health diagnosis, sleep apnea, morbid obesity)? @ -[None] Was patient admitted / discharged? Hospital course, mention meds given and route, prescriptions, significant lab abnormalities, going to OR and other pertinent info. @ -[Patient is admitted, started on IV antibiotics Undiagnosed new problem with uncertain prognosis? @ -[No] Drug Therapy requiring intensive monitoring for toxicity (Heparin, Nitro, Insulin, Cardizem)? @ -[No] Were any procedures done? @ -[No] Diagnosis/symptom? @ -[Acute pneumonia, uncomplicated Acute, or Chronic, or Acute on Chronic? @ -[default] Uncomplicated (without systemic symptoms) or Complicated (systemic symptoms)? @ -[default] Side effects of treatment? @ -[No] Exacerbation, Progression, or Severe Exacerbation? @ -[No] Poses a threat to life or bodily function? How? (Chest pain, USA, MA, pneumonia, PE, COPD, DKA, ARF, appy, cholecystitis, CVA, Diverticulitis, Homicidal, Suicidal, threat to staff... and all critical care pts) @ -[No] (Tucker Ulrich) - Lab Data Lab Results 03/14/23 03/14/23 03/14/23 Range/Units 00:07 00:07 00:07 WBC 5.8 (3.8-10.6) k/uL RBC 5.12 (4.30-5.90) m/uL Hgb 16.7 (13.0-17.5) gm/dL Hct 50.7 (39.0-53.0) % MCV 99.1 (80.0-100.0) fL MCH 32.7 (25.0-35.0) pg MCHC 33.0 (31.0-37.0) g/dL RDW 13.7 (11.5-15.5) % Plt Count 149 L (150-450) k/uL MPV 7.2 Neutrophils % 87 % Lymphocytes % 6 % Monocytes % 4 % Eosinophils % 2 % Basophils % 0 % Neutrophils # 5.1 (1.3-7.7) k/uL Lymphocytes # 0.3 L (1.0-4.8) k/uL Monocytes # 0.2 (0-1.0) k/uL Eosinophils # 0.1 (0-0.7) k/uL Basophils # 0.0 (0-0.2) k/uL PT 11.1 (9.0-12.0) sec INR 1.1 (<1.2) APTT 22.0 (22.0-30.0) sec Sodium 137 (137-145) mmol/L Potassium 4.3 (3.5-5.1) mmol/L Chloride 102 (98-107) mmol/L Carbon Dioxide 26 (22-30) mmol/L Anion Gap 9 mmol/L BUN 22 H (9-20) mg/dL Creatinine 1.40 H (0.66-1.25) mg/dL Est GFR (CKD-EPI)AfAm 59 (>60 ml/min/1.73 sqM) Est GFR (CKD-EPI)NonAf 51 (>60 ml/min/1.73 sqM) Glucose 122 H (74-99) mg/dL Plasma Lactic Acid Juan Manuel (0.7-2.0) mmol/L Calcium 8.8 (8.4-10.2) mg/dL Total Bilirubin 0.7 (0.2-1.3) mg/dL AST 51 (17-59) U/L ALT 53 H (4-49) U/L Alkaline Phosphatase 85 (38-126) U/L Total Protein 6.4 (6.3-8.2) g/dL Albumin 4.1 (3.5-5.0) g/dL 03/14/23 Range/Units 00:07 WBC (3.8-10.6) k/uL RBC (4.30-5.90) m/uL Hgb (13.0-17.5) gm/dL Hct (39.0-53.0) % MCV (80.0-100.0) fL MCH (25.0-35.0) pg MCHC (31.0-37.0) g/dL RDW (11.5-15.5) % Plt Count (150-450) k/uL MPV Neutrophils % % Lymphocytes % % Monocytes % % Eosinophils % % Basophils % % Neutrophils # (1.3-7.7) k/uL Lymphocytes # (1.0-4.8) k/uL Monocytes # (0-1.0) k/uL Eosinophils # (0-0.7) k/uL Basophils # (0-0.2) k/uL PT (9.0-12.0) sec INR (<1.2) APTT (22.0-30.0) sec Sodium (137-145) mmol/L Potassium (3.5-5.1) mmol/L Chloride (98-107) mmol/L Carbon Dioxide (22-30) mmol/L Anion Gap mmol/L BUN (9-20) mg/dL Creatinine (0.66-1.25) mg/dL Est GFR (CKD-EPI)AfAm (>60 ml/min/1.73 sqM) Est GFR (CKD-EPI)NonAf (>60 ml/min/1.73 sqM) Glucose (74-99) mg/dL Plasma Lactic Acid Juan Manuel 1.2 (0.7-2.0) mmol/L Calcium (8.4-10.2) mg/dL Total Bilirubin (0.2-1.3) mg/dL AST (17-59) U/L ALT (4-49) U/L Alkaline Phosphatase (38-126) U/L Total Protein (6.3-8.2) g/dL Albumin (3.5-5.0) g/dL Disposition Is patient prescribed a controlled substance at d/c from ED?: No <Yanira Cruz - Last Filed: 03/22/23 16:28> <Tucker Ulrich - Last Filed: 03/24/23 06:10> Clinical Impression: Pneumonia Disposition: HOME SELF-CARE Condition: Good
--- NOTE | 2023-03-14 00:29 | XR ---
EXAM: XR Chest, 2 Views CLINICAL HISTORY: ITS.REASON XR Reason: difficulty breathing TECHNIQUE: Frontal and lateral views of the chest. COMPARISON: 01/17/23 FINDINGS: Lungs: Increasing interstitial and ground-glass opacity right lower lung zone. Left lung appears clear. Pleural space: Small right pleural effusion. No left pleural effusion. No pneumothorax. Heart: Unremarkable. No cardiomegaly or pulmonary vascular congestion. Bones/joints: Old right rib fractures. No acute osseous findings. IMPRESSION: 1. Increasing opacity right lower lung zone, correlate for pneumonia versus less likely asymmetric pulmonary edema. 2. Small right pleural effusion.
[2023-03-14 00:46] LABS: Basophils % (A) 0 %; Eosinophils # (A) 0.1 k/uL (0-0.7); Eosinophils % (A) 2 %; HCT 50.7 % (39.0-53.0); HGB 16.7 gm/dL (13.0-17.5); Lymphocytes # (A) 0.3 k/uL (1.0-4.8); Lymphocytes % (A) 6 %; MCH 32.7 pg (25.0-35.0); MCV 99.1 fL (80.0-100.0); Mean Platelet Volume 7.2; Monocytes # (A) 0.2 k/uL (0-1.0); Monocytes % (A) 4 %; Neutrophils # (A) 5.1 k/uL (1.3-7.7); Neutrophils % (A) 87 %; Platelet Count 149 k/uL (150-450); RBC 5.12 m/uL (4.30-5.90); RDW 13.7 % (11.5-15.5); WBC 5.8 k/uL (3.8-10.6)
[2023-03-14 00:48] LABS: ALT 53 U/L (4-49); AST 51 U/L (17-59); African American GFR (CKD) 59 (>60 ml/min/1.73 sqM); Albumin 4.1 g/dL (3.5-5.0); Alkaline Phosphatase 85 U/L (38-126); Anion Gap 9 mmol/L; Blood Urea Nitrogen 22 mg/dL (9-20); Calcium 8.8 mg/dL (8.4-10.2); Carbon Dioxide 26 mmol/L (22-30); Chloride 102 mmol/L (98-107); Glucose 122 mg/dL (74-99); Non-African American GFR(CKD) 51 (>60 ml/min/1.73 sqM); Potassium 4.3 mmol/L (3.5-5.1); Sodium 137 mmol/L (137-145); Total Bilirubin 0.7 mg/dL (0.2-1.3); Total Protein 6.4 g/dL (6.3-8.2)
[2023-03-14 00:53] LABS: INR 1.1 (<1.2); Prothrombin Time 11.1 sec (9.0-12.0)
[2023-03-14] MEDS ORDERED: IPRATROPIUM-ALBUTEROL 3 ML NEB INHALATION STA (01:05)
[2023-03-14] MEDS ORDERED: ALBUTEROL NEBULIZED 2.5 MG/3 ML INHALATION STA (01:05)
[2023-03-14] MEDS ORDERED: predniSONE 20 MG TAB PO STA (01:06)
[2023-03-14] MEDS ORDERED: AZITHROMYCIN 500 MG TAB PO STA (01:07)
[2023-03-14] MEDS ORDERED: PNEUMONIA PROTOCOL UTILIZED 1 EACH MISC PO PRN (01:34)
[2023-03-14] MEDS: amLODIPine 2.5 MG TAB PO SCH (12:14)
--- NOTE | 2023-03-14 13:00 | P.CNPUL ---
History of Present Illness Consult date: 03/14/23 Requesting physician: Michael Ruelas Reason for consult: dyspnea, cough, COPD, hypoxemia, pneumonia, abnormal CXR/CT Chief complaint: Shortness of breath. History of present illness: Pulmonary consult dated 03/14/2023. 68-year-old male who masses see for a COPD exacerbation, and possible underlying pneumonia. The patient hasn't been feeling well for about for 5 days. He is not a particularly good historian. He has a history of heavy tobacco use. He was seen by my partner in the past. I saw him back in 2017. The patient comes in with complaints of shortness of breath, cough, phlegm production, and weakness. The patient also apparently has some right-sided chest pain. He does have a history of ongoing tobacco use. Other medical history includes hepatitis C, hypertension, and previous methicillin-resistant staph aureus infection. The patient is seen in the emergency department, room #5. He is laying flat in bed. He is not wearing his oxygen as recommended. He is also not keeping his cardiac leads in place. He is on room air currently, he is not on any IV fluids. White count is 5.8, hemoglobin 16.7, hematocrit 50.7, and platelet count 149,000. Sodium, potassium, chloride, and CO2, or all normal. BUN is 22, with a creatinine 1.40. N-terminal proBNP is 491. Chest x-ray shows some infiltrate, and the right lower lobe. The rest of the lung moran are rela tively clear. Review of Systems REVIEW OF SYSTEMS: CONSTITUTIONAL: Weakness. NEUROLOGIC: [ Negative.] HEENT: [ Negative.] CARDIAC: Right-sided chest pain from coughing. PULMONARY: Shortness of breath, cough, chest congestion, and phlegm production. GI: [Negative.] : [Negative.] RHEUMATOLOGIC: [ Negative.] IMMUNOLOGIC: [ Negative.] ENDOCRINE: [Negative. ] DERMATOLOGIC: [Negative.] Past Medical History Past Medical History: Hypertension, Liver Disease Additional Past Medical History / Comment(s): HEP C; HX OF DIALYSIS PER PT, NOW OFF. History of Any Multi-Drug Resistant Organisms: MRSA Date of last positivie culture/infection: 2007 MDRO Source:: Blood/Bone Past Surgical History: Cholecystectomy, Hernia Repair, Tonsillectomy Additional Past Surgical History / Comment(s): COLONOSCOPY. Umbilical and Inguinal surgery x4 Past Anesthesia/Blood Transfusion Reactions: No Reported Reaction Past Psychological History: Anxiety, Panic Disorder Smoking Status: Current some day smoker Past Alcohol Use History: Daily Past Drug Use History: None Reported - Past Family History Mother Family Medical History: Cancer Additional Family Medical History / Comment(s): of colon CA Father Family Medical History: Cancer Additional Family Medical History / Comment(s): Colostomy from colon CA Medications and Allergies Home Medications Medication Instructions Recorded Confirmed Type Buprenorphine/Naloxone 8Mg/2Mg 1 film SL TID 01/16/23 03/14/23 History [Suboxone 8-2Mg Film] ALPRAZolam [Xanax] 0.25 mg PO TID PRN 03/14/23 03/14/23 History Levofloxacin [Levaquin] 500 mg PO DAILY 03/14/23 03/14/23 History methylPREDNISolone Dose Pack See Taper PO DIRECTED 03/14/23 03/14/23 History [Medrol Dose Pack] Allergies Allergy/AdvReac Type Severity Reaction Status Date / Time Penicillins Allergy Unknown Verified 03/13/23 23:24 Childhood Physical Exam Osteopathic Statement: *. No significant issues noted on an osteopathic structural exam other than those noted in the History and Physical/Consult. Vitals: Vital Signs Temp Pulse Resp BP Pulse Ox 03/14/23 11:18 69 18 167/113 94 L 03/14/23 09:00 62 20 166/98 97 03/14/23 07:39 65 22 166/96 95 03/14/23 02:00 91 20 168/92 95 03/14/23 01:33 66 03/14/23 01:24 71 03/14/23 01:00 63 24 144/93 93 L 03/13/23 23:24 98.4 F 77 24 183/95 92 L Intake and Output 03/13/23 03/14/23 03/14/23 22:59 06:59 14:59 Other: Weight 90.718 kg No acute distress, oriented 3. Not a good historian. No conversational dyspnea or use of accessory muscles. HEENT examination is grossly unremarkable. Neck supple. Full range of motion. No adenopathy thyromegaly or neck vein distention. Cardiovascular examination reveals regular rhythm rate. S1-S2 normal. No S3 or S4. No discernible murmur noted. Heart rate 69 bpm. Lungs reveal scattered expiratory rhonchi and wheezes. Breath sounds are equal bilaterally but diminished throughout. Room air saturation 94%. Abdomen soft bowel sounds are heard. No masses or tenderness. Extremities are intact. No cyanosis clubbing or edema. Skin is without rash or lesion. Neurologic examination is brief but nonfocal. Results - Laboratory Findings CBC and BMP: 03/14/23 00:07 03/14/23 00:07 PT/INR, D-dimer PT 11.1 sec (9.0-12.0) 03/14/23 00:07 INR 1.1 (<1.2) 03/14/23 00:07 Abnormal lab findings: Abnormal Labs 03/14/23 03/14/23 00:07 00:07 Plt Count 149 L Lymphocytes # 0.3 L BUN 22 H Creatinine 1.40 H Glucose 122 H ALT 53 H - Diagnostic Findings Chest x-ray: image reviewed Assessment and Plan Assessment: Acute hypoxemic respiratory failure secondary to COPD exacerbation, complicated by right lower lobe pneumonia. Ongoing tobacco use with nicotine addiction. History of hepatitis C. History of hypertension. Prior history of hemodialysis. History of methicillin-resistant staph aureus infection. History of daily alcohol use. Plan: Plan dated 03/14/2023. The patient is seen in the emergency department, room number fine. He is currently on room air. He's not receiving any IV fluids. Labs, x-rays, me dications are reviewed. The patient will be treated for possible pneumonia, right lower lobe, as well as a COPD exacerbation. We will check a pro- calcitonin level. Additional recommendations and suggestions are forthcoming. Prognosis is guarded. Time with Patient: Greater than 30
[2023-03-14] MEDS: IPRATROPIUM-ALBUTEROL 3 ML NEB INHALATION PRN ×3 (13:18→20:23)
--- NOTE | 2023-03-14 13:21 | P.HPIM ---
History of Present Illness H&P Date: 03/14/23 History of present illness; patient 68-year-old gentleman with past medical history significant for hypertension who presented to The ER because of shortness of breath. Patient stated that he has been short of breath for the last week. Patient complaint of cough as well. Patient is short of breath on exertion. Patient was seen by his PCP who stated that patient had pneumonia and told him to come to the ER but patient could not come due to personal commitments .over the course of the week patient shortness of breath has worsened. Complaining of lethargy and weakness. Because of the shortness of breath, patient came to the ER Initial lab work done in the ER showed WBC 5.8, hemoglobin 16.7, platelet count 149, sodium 139, potassium 4.3, BUN 22, creatinine 1.4, glucose 122, Chest x-ray done showed increasing opacity right lower lung zone, suspicious for pneumonia, small right pleural effusion Patient was admitted to medicine service REVIEW OF SYSTEMS: CONSTITUTIONAL: No fever, no malaise, no fatigue. HEENT: No recent visual problems or hearing problems. Denied any sore throat. CARDIOVASCULAR: No chest pain, orthopnea, PND, no palpitations, no syncope. PULMONARY: As mentioned in HPI GASTROINTESTINAL: No diarrhea, no nausea, no vomiting, no abdominal pain. NEUROLOGICAL: No headaches, no weakness, no numbness. HEMATOLOGICAL: Denies any bleeding or petechiae. GENITOURINARY: Denies any burning micturition, frequency, or urgency. MUSCULOSKELETAL/RHEUMATOLOGICAL: Denies any joint pain, swelling, or any muscle pain. ENDOCRINE: Denies any polyuria or polydipsia. The rest of the 14-point review of systems is negative. PHYSICAL EXAMINATION: GENERAL: The patient is alert and oriented x3, not in any acute distress. Well developed, well nourished. HEENT: Pupils are round and equally reacting to light. EOMI. No scleral icterus. No conjunctival pallor. Normocephalic, atraumatic. No pharyngeal erythema. No thyromegaly. CARDIOVASCULAR: S1 and S2 present. No murmurs, rubs, or gallops. PULMONARY: Chest is clear to auscultation, no wheezing or crackles. ABDOMEN: Soft, nontender, nondistended, normoactive bowel sounds. No palpable organomegaly. MUSCULOSKELETAL: No joint swelling or deformity. EXTREMITIES: No cyanosis, clubbing, or pedal edema. NEUROLOGICAL: Gross neurological examination did not reveal any focal deficits. SKIN: No rashes. Assessment and plan Bacterial pneumonia caused by unspecified organism Acute COPD exacerbation Tobacco addiction History of hepatitis C Hypertension Monitor vital signs Monitor CBC Monitor CMP Sputum culture ordered Continue IV Rocephin and azithromycin Ordered troponin Ordered d-dimer Continue breathing treatments Consult pulmonary DVT prophylaxis: Past Medical History Past Medical History: Hypertension, Liver Disease Additional Past Medical History / Comment(s): HEP C; HX OF DIALYSIS PER PT, NOW OFF. History of Any Multi-Drug Resistant Organisms: MRSA Date of last positivie culture/infection: 2007 MDRO Source:: Blood/Bone Past Surgical History: Cholecystectomy, Hernia Repair, Tonsillectomy Additional Past Surgical History / Comment(s): COLONOSCOPY. Umbilical and Inguinal surgery x4 Past Anesthesia/Blood Transfusion Reactions: No Reported Reaction Past Psychological History: Anxiety, Panic Disorder Smoking Status: Current some day smoker Past Alcohol Use History: Daily Past Drug Use History: None Reported - Past Family History Mother Family Medical History: Cancer Additional Family Medical History / Comment(s): of colon CA Father Family Medical History: Cancer Additional Family Medical History / Comment(s): Colostomy from colon CA Medications and Allergies Home Medications Medication Instructions Recorded Confirmed Type Buprenorphine/Naloxone 8Mg/2Mg 1 film SL TID 01/16/23 03/14/23 History [Suboxone 8-2Mg Film] ALPRAZolam [Xanax] 0.25 mg PO TID PRN 03/14/23 03/14/23 History Levofloxacin [Levaquin] 500 mg PO DAILY 03/14/23 03/14/23 History methylPREDNISolone Dose Pack See Taper PO DIRECTED 03/14/23 03/14/23 History [Medrol Dose Pack] Allergies Allergy/AdvReac Type Severity Reaction Status Date / Time Penicillins Allergy Unknown Verified 03/13/23 23:24 Childhood Physical Exam Vitals: Vital Signs Temp Pulse Resp BP Pulse Ox 03/14/23 09:00 62 20 166/98 97 03/14/23 07:39 65 22 166/96 95 03/14/23 02:00 91 20 168/92 95 03/14/23 01:33 66 03/14/23 01:24 71 03/14/23 01:00 63 24 144/93 93 L 03/13/23 23:24 98.4 F 77 24 183/95 92 L Intake and Output 03/13/23 03/14/23 03/14/23 22:59 06:59 14:59 Other: Weight 90.718 kg Results CBC & Chem 7: 03/14/23 00:07 03/14/23 00:07 Labs: Abnormal Lab Results - Last 24 Hours (Table) 03/14/23 03/14/23 Range/Units 00:07 00:07 Plt Count 149 L (150-450) k/uL Lymphocytes # 0.3 L (1.0-4.8) k/uL BUN 22 H (9-20) mg/dL Creatinine 1.40 H (0.66-1.25) mg/dL Glucose 122 H (74-99) mg/dL ALT 53 H (4-49) U/L
[2023-03-14] MEDS ORDERED: ALPRAZolam 0.25 MG TAB PO PRN (18:46)
--- NOTE | 2023-03-14 19:11 | CT ---
CT CHEST FOR PULMONARY EMBOLISM. EXAMINATION TYPE: CT angio chest DATE OF EXAM: 03/14/2023 INDICATION: Elevated D-dimer, SOB. CT DLP: 366 mGycm, Automated exposure control for dose reduction was used. CONTRAST: Patient injected with 100 ml mL of Isovue 370. COMPARISON: None TECHNIQUE: CT of the chest is performed on a spiral scan at 2 mm thick sections. Study is performed with intravenous contrast timed for evaluation for pulmonary embolism. This will limit additional po rtions of the evaluation. 3-D MIP images reconstructed by the technologist are reviewed on the compu ter in the coronal and sagittal planes. FINDINGS: No persistent filling defects are evident to suggest an acute pulmonary embolism. No mediastinal or hilar adenopathy enlarged by CT criteria is evident. The ascending aorta diameter at the level of the main pulmonary artery is 3.5 cm. The main pulmonary artery diameter at the bifur cation is 3.8 cm. Correlate for pulmonary hypertension. Posterior pleural plaquing is present with is thickening of the posterior pleural margins. Limited CT section through the upper abdomen a small hiatal hernia is present IMPRESSIONS: 1. No acute pulmonary embolism. 2. Chronic posterior pleural plaquing. Correlate for prior asbestos exposure. 3. Consider pulmonary hypertension within the differential.
[2023-03-14] MEDS: SYMBICORT 160-4.5 MCG INHALER INHALATION SCH (20:23)
[2023-03-14] MEDS: METHADONE 10 MG TAB PO SCH (21:23)
[2023-03-14] MEDS: methylPREDNISolone SOD SUCCI 40 MG/ML 1 ML VIAL IV SCH (21:24)
[2023-03-14 21:31] VITALS: RESP 18
[2023-03-15] MEDS: methylPREDNISolone SOD SUCCI 40 MG/ML 1 ML VIAL IV SCH ×2 (01:36→08:32)
--- NOTE | 2023-03-15 08:19 | XR ---
EXAMINATION TYPE: XR chest 2V DATE OF EXAM: 03/15/2023 6:53 AM COMPARISON: Chest radiographs from 03/14/2023, CTA chest of 423 TECHNIQUE: XR chest 2V Frontal and lateral views of the chest. CLINICAL INDICATION:Male, 68 years old with history of pneumonia; FINDINGS: Lungs/Pleura: No pneumothorax or pleural effusion. Elevation the right hemidiaphragm. Right basal ple ural plaquing redemonstrated. Chronic scarring within the right lung base. Pulmonary vascularity: Unremarkable. Heart/mediastinum: Cardiomediastinal silhouette is unremarkable. Atherosclerotic calcifications are seen in the aorta. Musculoskeletal: No acute osseous pathology. IMPRESSION: Chronic changes without evidence for acute process.
[2023-03-15 08:32] VITALS: BP 145/81; TEMP 98.1
[2023-03-15] MEDS: amLODIPine 2.5 MG TAB PO SCH (08:32)
[2023-03-15] MEDS ORDERED: AZITHROMYCIN 500 MG TAB PO SCH (09:00)
[2023-03-15] MEDS: IPRATROPIUM-ALBUTEROL 3 ML NEB INHALATION PRN (09:22)
[2023-03-15] MEDS: SYMBICORT 160-4.5 MCG INHALER INHALATION SCH (09:22)
[2023-03-15 09:36] VITALS: PULSE 64
[2023-03-15] MEDS: METHADONE 10 MG TAB PO SCH (10:02)
--- NOTE | 2023-03-15 12:40 | P.PN ---
Subjective Progress Note Date: 03/15/23 68-year-old male who masses see for a COPD exacerbation, and possible underlying pneumonia. The patient hasn't been feeling well for about for 5 days. He is not a particularly good historian. He has a history of heavy tobacco use. He was seen by my partner in the past. I saw him back in 2017. The patient comes in with complaints of shortness of breath, cough, phlegm production, and weakness. The patient also apparently has some right-sided chest pain. He does have a history of ongoing tobacco use. Other medical history includes hepatitis C, hypertension, and previous methicillin-resistant staph aureus infection. The patient is seen in the emergency department, room #5. He is laying flat in bed. He is not wearing his oxygen as recommended. He is also not keeping his cardiac leads in place. He is on room air currently, he is not on any IV fluids. White count is 5.8, hemoglobin 16.7, hematocrit 50.7, and platelet count 149,000. Sodium, potassium, chloride, and CO2, or all normal. BUN is 22, with a creatinine 1.40. N-terminal proBNP is 491. Chest x-ray shows some infiltrate, and the right lower lobe. The rest of the lung moran are relatively clear. The patient is seen today 03/15/2023 in follow-up on the regular medical floor. He is currently resting in bed. Awake and alert in no acute distress. Maintaining O2 saturations in the 90s on 2 L/m per nasal cannula. No IV fluids. He is continued on ceftriaxone, azithromycin. Remain on DuoNeb inhalations, Symbicort, IV Solu-Medrol. His pro calcitonin is 0.06. CT angiogram ruled out pulmonary embolism. There is crowding of posterior pleural plaquing. Possible pulmonary hypertension. He denies any known asbestos exposure. Objective - Vital Signs Vital signs: Vital Signs Temp 98.1 F 03/15/23 08:28 Pulse 64 03/15/23 09:35 Resp 18 03/15/23 08:28 BP 145/81 03/15/23 08:28 Pulse Ox 96 03/15/23 09:22 FiO2 Intake & Output 03/14/23 03/15/23 03/15/23 18:59 06:59 18:59 Output Total 400 Balance -400 Weight 90.718 kg Output: Urine 400 Other: Voiding Method Urinal # Voids 2 - Exam GENERAL EXAM: Alert, oriented 68-year-old male patient, on 2 L nasal cannula, comfortable in no apparent distress. HEAD: Normocephalic. EYES: Normal reaction of pupils, equal size. NOSE: Clear with pink turbinates. THROAT: No erythema or exudates. NECK: No masses, no JVD. CHEST: No chest wall deformity. LUNGS: Equal air entry with bilateral end expiratory wheeze, diminished. CVS: S1 and S2 normal with no audible murmur, regular rhythm. ABDOMEN: No hepatosplenomegaly, normal bowel sounds, no guarding or rigidity. SPINE: No scoliosis or deformity SKIN: No rashes CENTRAL NERVOUS SYSTEM: No focal deficits, tone is normal in all 4 extremities. EXTREMITIES: There is no peripheral edema. No clubbing, no cyanosis. Peripheral pulses are intact. - Labs CBC & Chem 7: 03/14/23 00:07 03/14/23 00:07 Labs: Abnormal Lab Results - Last 24 Hours (Table) 03/14/23 Range/Units 15:51 D-Dimer 1.32 H (<0.60) mg/L FEU Assessment and Plan Assessment: Acute hypoxemic respiratory failure secondary to COPD exacerbation, complicated by right lower lobe pneumonia Ongoing tobacco use with nicotine addiction History of hepatitis C History of hypertension Prior history of hemodialysis History of methicillin-resistant staph aureus infection History of daily alcohol use Plan: The patient was seen and evaluated CAT scan, chest x-ray, labs and medications reviewed Percussive 20 negative, antibiotics discontinued Cleared for discharge from the pulmonary standpoint Continue Symbicort, albuterol HFA, prednisone taper Educated regarding the importance of complete smoking cessation Follow-up in our office in 1 week I have personally seen and examined the patient, performed the documentation and the assessment and plan as written. Number of minutes spent on the visit: 10.
--- NOTE | 2023-03-15 13:00 | P.DS ---
Providers Date of admission: 03/14/23 01:36 Expected date of discharge: 03/15/23 Attending physician: Alyssia Arevalo Consults: 03/14/23 09:14 Consult Physician Urgent Consulting Provider: Lalo South Reason/Comments: shortness of breath, PNA Do you want consulting provider notified?: Yes Primary care physician: Michael Wesleyhven [facility] Course: Discharge diagnoses; Acute COPD exacerbation Tobacco addiction History of hepatitis C Hypertension Pneumonia ruled out Hospital course; patient 68-year-old gentleman with past medical history significant for hypertension who presented to The ER because of shortness of breath. Patient stated that he has been short of breath for the last week. Patient complaint of cough as well. Patient is short of breath on exertion. Patient was seen by his PCP who stated that patient had pneumonia and told him to come to the ER but patient could not come due to personal commitments .over the course of the week patient shortness of breath has worsened. Complaining of lethargy and weakness. Because of the shortness of breath, patient came to the ER Initial lab work done in the ER showed WBC 5.8, hemoglobin 16.7, platelet count 149, sodium 139, potassium 4.3, BUN 22, creatinine 1.4, glucose 122, Chest x-ray done showed increasing opacity right lower lung zone, suspicious for pneumonia, small right pleural effusion Patient was admitted to medicine service 03/15. Patient seen and examined. Breathing has improved. [employer] cleared the patient for discharge. Being discharged on Medrol Dosepak, Symbicort and albuterol. Outpatient follow-up with PCP and pulmonology PHYSICAL EXAMINATION: GENERAL: The patient is alert and oriented x3, not in any acute distress. Well developed, well nourished. HEENT: Pupils are round and equally reacting to light. EOMI. No scleral icterus. No conjunctival pallor. Normocephalic, atraumatic. No pharyngeal erythema. No thyromegaly. CARDIOVASCULAR: S1 and S2 present. No murmurs, rubs, or gallops. PULMONARY: Coarse breath sounds bilaterally, no wheezing or crackles. ABDOMEN: Soft, nontender, nondistended, normoactive bowel sounds. No palpable organomegaly. MUSCULOSKELETAL: No joint swelling or deformity. EXTREMITIES: No cyanosis, clubbing, or pedal edema. NEUROLOGICAL: Gross neurological examination did not reveal any focal deficits. SKIN: No rashes. Patient Condition at Discharge: Good Plan - Discharge Summary Discharge Rx Participant: No New Discharge Prescriptions: New amLODIPine [Norvasc] 2.5 mg PO DAILY #30 tab Budesonide-Formot 160-4.5 Mcg [Symbicort 160-4.5 Mcg Inhaler] 2 puff INHALATION RT-BID #1 each Albuterol Sulfate [Ventolin HFA] 2 puff INHALATION Q6H PRN #1 each PRN Reason: Shortness Of Breath Or Wheezing Continue Buprenorphine/Naloxone 8Mg/2Mg [Suboxone 8-2Mg Film] 1 film SL TID ALPRAZolam [Xanax] 0.25 mg PO TID PRN PRN Reason: Anxiety methylPREDNISolone Dose Pack [Medrol Dose Pack] See Taper PO DIRECTED #1 tab Discontinued Levofloxacin [Levaquin] 500 mg PO DAILY Discharge Medication List Buprenorphine/Naloxone 8Mg/2Mg [Suboxone 8-2Mg Film] 1 film SL TID 01/16/23 [History] ALPRAZolam [Xanax] 0.25 mg PO TID PRN 03/14/23 [History] Albuterol Sulfate [Ventolin HFA] 2 puff INHALATION Q6H PRN #1 each 03/15/23 [Rx] Budesonide-Formot 160-4.5 Mcg [Symbicort 160-4.5 Mcg Inhaler] 2 puff INHALATION RT-BID #1 each 03/15/23 [Rx] amLODIPine [Norvasc] 2.5 mg PO DAILY #30 tab 03/15/23 [Rx] methylPREDNISolone Dose Pack [Medrol Dose Pack] See Taper PO DIRECTED #1 tab 03/15/23 [Rx] Follow up Appointment(s)/Referral(s): Michael Ruelas MD [Primary Care Provider] - 1-2 days Lalo South DO [Doctor of Osteopathic Medicine] - 1 Week Discharge Disposition: HOME SELF-CARE
== END 2023-03-15 14:04 | disposition home or self-care (01) ==
LOC: EC 22:15 → 4SSUR 03-14 01:36 → INTOOBSV 03-14 01:36 → 4SSUR 03-14 13:28 → UNDODISIN 03-15 14:04
PROVIDERS: ADMIT Hospitalist; ATTEND Hospitalist
DX: J44.1 Chronic obstructive pulmonary disease with (acute) exacerbation (principal); J96.01 Acute respiratory failure with hypoxia; B19.20 Unspecified viral hepatitis C without hepatic coma; F17.200 Nicotine dependence, unspecified, uncomplicated; F41.0 Panic disorder [episodic paroxysmal anxiety]; F10.90 Alcohol use, unspecified, uncomplicated; I10 Essential (primary) hypertension; I70.0 Atherosclerosis of aorta; K44.9 Diaphragmatic hernia without obstruction or gangrene; Z79.899 Other long term (current) drug therapy; Z79.51 Long term (current) use of inhaled steroids; Z88.0 Allergy status to penicillin; Z90.49 Acquired absence of other specified parts of digestive tract; Z86.14 Personal history of Methicillin resistant Staphylococcus aureus infection; Z80.0 Family history of malignant neoplasm of digestive organs
CPT/HCPCS: 96376; 96366; 96375; 96365; 99285; 36415; 94640 ×4; 94760; 93005; 85379; 83880; 80053; 87449; 83605; 84484; 85025; 85610; 85730; 87040; 87070; 87205; 84145; 71046 ×2; 71275; G0378 ×2; J2920 ×2; J0696 ×2; J7512; Q9967

== ENCOUNTER 2023-04-18 22:02 | Emergency (ER) | payer MEDICARE ==
[2023-04-18 22:08] VITALS: TEMP 99.7
[2023-04-18] MEDS ORDERED: TOPICAL SKIN ADHESIVE 1 EACH AMP TOPICAL ONE (22:25)
[2023-04-18] MEDS ORDERED: ACETAMINOPHEN TAB 500 MG TAB PO STA (22:27)
--- NOTE | 2023-04-18 23:31 | XR ---
EXAM: XR Right Wrist Complete, 3 or More Views CLINICAL HISTORY: ITS.REASON XR Reason: fall TECHNIQUE: Frontal, lateral and oblique views of the right wrist. COMPARISON: No relevant prior studies available. FINDINGS: Bones/joints: Suspected, nondisplaced fracture of the scaphoid waist. CT scan of the wrist recommended to confirm. No dislocation. Soft tissues: Unremarkable. No radiopaque foreign body. IMPRESSION: Suspected, nondisplaced fracture of the scaphoid waist. CT scan of the wrist recommended to confirm.
--- NOTE | 2023-04-18 23:58 | CT ---
EXAM: CT Head and Maxillofacial Without Intravenous Contrast CLINICAL HISTORY: ITS.REASON CT Reason: fall TECHNIQUE: Axial computed tomography images of the head/brain and face without intravenous contrast. CTDI is 25.8 mGy and DLP is 969.3 mGy-cm. This CT exam was performed using one or more of the following dose reduction techniques: automated exposure control, adjustment of the mA and/or kV according to patient size, and/or use of iterative reconstruction technique. COMPARISON: No relevant prior studies available. FINDINGS: Brain: Unremarkable. No hemorrhage. No significant white matter disease. No edema. Ventricles: Unremarkable. No ventriculomegaly. Bones/joints: No acute fracture. Soft tissues: Unremarkable. Mild soft tissue swelling over the right forehead with a small laceration and tiny amount of subcutaneous air and hematoma. Sinuses: Unremarkable as visualized. No acute sinusitis. Mastoid air cells: Unremarkable as visualized. No mastoid effusion. Orbits: Unremarkable as visualized. IMPRESSION: No evidence of acute facial bone pathology.
--- NOTE | 2023-04-19 00:03 | CT ---
EXAM: CT Head Without Intravenous Contrast CLINICAL HISTORY: ITS.REASON CT Reason: fall TECHNIQUE: Axial computed tomography images of the head/brain without intravenous contrast. CTDI is 25.8 mGy and DLP is 719.6 mGy-cm. This CT exam was performed using one or more of the following dose reduction techniques: automated exposure control, adjustment of the mA and/or kV according to patient size, and/or use of iterative reconstruction technique. COMPARISON: No relevant prior studies available. FINDINGS: No acute intracranial hemorrhage. No midline shift or mass effect. The territorial castañeda-white matter differentiation is maintained throughout. Age-related cerebral volume loss. Periventricular and subcortical white matter hypoattenuation, consistent with chronic microangiopathy. The visualized orbits appear grossly unremarkable. Right periorbital soft tissue swelling. The calvarium is intact. The visualized paranasal sinuses and mastoid air cells are grossly clear. IMPRESSION: No acute intracranial hemorrhage, midline shift, or mass effect. Right periorbital soft tissue swelling. EXAM: CT Cervical Spine Without Intravenous Contrast CLINICAL HISTORY: ITS.REASON CT Reason: fall TECHNIQUE: Axial computed tomography images of the cervical spine without intravenous contrast. CTDI is 25.8 mGy and DLP is 242.7 mGy-cm. This CT exam was performed using one or more of the following dose reduction techniques: automated exposure control, adjustment of the mA and/or kV according to patient size, and/or use of iterative reconstruction technique. COMPARISON: No relevant prior studies available. FINDINGS: The vertebral body heights are maintained. The craniocervical junction is intact. The atlanto-dens interval is maintained. The dens is intact. There is no spondylolisthesis. Multilevel cervical spondylosis and degenerative disc disease. Straightening of the cervical lordosis. The unenhanced neck soft tissues are grossly unremarkable. The visualized lung apices are grossly clear. IMPRESSION: No acute fracture or subluxation of the cervical spine.
--- NOTE | 2023-04-19 00:09 | ED ---
Fall HPI - General Chief Complaint: Fall Stated Complaint: Fall Time Seen by Provider: 04/18/23 22:17 Source: patient, police Mode of arrival: ambulatory - History of Present Illness Initial Comments: Patient is a 68-year-old male who presents to emergency department for fall. Patient states he drank 3 shots tonight when he fell off the front porch hitting his head. Patient is intoxicated. He states he did not lose consciousness. He does not take blood thinners. He has bruising and swelling around the right eye with small laceration in his eyebrow. Last tetanus unknown he declines tetanus shot. He reports mild headache. No double vision, blurry vision. He also reports pain in his right wrist. - Related Data Home Medications Medication Instructions Recorded Confirmed Buprenorphine/Naloxone 8Mg/2Mg 1 film SL TID 01/16/23 03/14/23 [Suboxone 8-2Mg Film] ALPRAZolam [Xanax] 0.25 mg PO TID PRN 03/14/23 03/14/23 Previous Rx's Medication Instructions Recorded Albuterol Sulfate [Ventolin HFA] 2 puff INHALATION Q6H PRN #1 each 03/15/23 Budesonide-Formot 160-4.5 Mcg 2 puff INHALATION RT-BID #1 each 03/15/23 [Symbicort 160-4.5 Mcg Inhaler] amLODIPine [Norvasc] 2.5 mg PO DAILY #30 tab 03/15/23 methylPREDNISolone Dose Pack See Taper PO DIRECTED #1 tab 03/15/23 [Medrol Dose Pack] Allergies Allergy/AdvReac Type Severity Reaction Status Date / Time Penicillins Allergy Unknown Verified 03/14/23 15:01 Childhood Review of Systems ROS Statement: Those systems with pertinent positive or pertinent negative responses have been documented in the HPI. ROS Other: All systems not noted in ROS Statement are negative. Past Medical History Past Medical History: Hypertension, Liver Disease Additional Past Medical History / Comment(s): HEP C; HX OF DIALYSIS PER PT, NOW OFF. History of Any Multi-Drug Resistant Organisms: MRSA Date of last positivie culture/infection: 2007 MDRO Source:: Blood/Bone Past Surgical History: Cholecystectomy, Hernia Repair, Tonsillectomy Additional Past Surgical History / Comment(s): COLONOSCOPY. Umbilical and Inguinal surgery x4 Past Anesthesia/Blood Transfusion Reactions: No Reported Reaction Past Psychological History: Anxiety, Panic Disorder Smoking Status: Current some day smoker Past Alcohol Use History: Daily Past Drug Use History: None Reported - Past Family History Mother Family Medical History: Cancer Additional Family Medical History / Comment(s): of colon CA Father Family Medical History: Cancer Additional Family Medical History / Comment(s): Colostomy from colon CA General Exam Limitations: no limitations General appearance: alert, in no apparent distress, appears intoxicated Head exam: Present: atraumatic Eye exam: Present: normal appearance, PERRL, EOMI, periorbital swelling (Right with ecchymosis. No evidence of globe rupture, proptosis ). Absent: conjunctival injection Neck exam: Present: normal inspection, full ROM Respiratory exam: Present: normal lung sounds bilaterally. Absent: respiratory distress, wheezes, rales, rhonchi, stridor Cardiovascular Exam: Present: regular rate, normal rhythm, normal heart sounds. Absent: systolic murmur, diastolic murmur, rubs, gallop, clicks Extremities exam: Present: normal capillary refill, other (Pain and mild swelling over. No obvious deformity. No anatomical snuffbox tenderness ) Neurological exam: Present: alert Skin exam: Present: warm, dry, intact, normal color. Absent: rash Course Vital Signs 04/18/23 22:04 Temperature 99.7 F H Pulse Rate 101 H Respiratory 18 Rate Blood Pressure 120/79 O2 Sat by Pulse 95 Oximetry Procedures - Laceration Laceration #1 Indication: laceration Site: face Description: linear Anesthesia Technique: local infiltration Pre-repair: wound explored, irrigated extensively Patient Tolerated Procedure: well, no complications Additional Comments: Approximated with glue since patient declined suturing - Orthopedic Splinting/Casting Injury #1 Upper Extremity Injury Location: wrist Upper Extremity Immobilizer: volar splint Medical Decision Making - Medical Decision Making Was pt. sent in by a medical professional or institution (, PA, BLENDER CONVEYOR OPERATOR, urgent care, hospital, or residential...) When possible be specific @ -Patient presents with a please Did you speak to anyone other than the patient for history (EMS, parent, family, police, friend...)? What history was obtained from this source @ -No Did you review nursing and triage notes (agree or disagree)? Why? @ -I reviewed and agree with nursing and triage notes Were old charts reviewed (outside hosp., previous admission, EMS record, old EKG, old radiological studies, urgent care reports/EKG's, residential records)? Report findings @ -No old charts were reviewed Differential Diagnosis (chest pain, altered mental status, abdominal pain women, abdominal pain men, vaginal bleeding, weakness, fever, dyspnea, syncope, headache, dizziness, GI bleed, back pain, seizure, CVA, palpatations, mental health)? @ -[Differential Headache: Migraine, tension, cluster, carbon monoxide, central venous thrombosis, pension karma temporal arteritis, acute closure glaucoma, intercranial hemorrhage, mastoiditis, sinusitis, head injury, this is not meant to be an all-inclusive list. EKG interpreted by me (3pts min.). @ -As above X-rays interpreted by me (1pt min.). @ -Concerning for scaphoid fracture CT interpreted by me (1pt min.). @ -No acute intracranial process, no acute fracture or subluxation of the cervical spine, no acute osseous process of the facial bones U/S interpreted by me (1pt. min.). @ -None done What testing was considered but not performed or refused? (CT, X-rays, U/S, labs)? Why? @ -None What meds were considered but not given or refused? Why? @ -Patient declined tetanus shot states "it hurts." Declines suturing requests glue Did you discuss the management of the patient with other professionals (professionals i.e. , PA, BLENDER CONVEYOR OPERATOR, lab, RT, psych nurse, social work program coordinator, emt p, teacher, community resource officer, telephonic case manager)? Give summary @ -No Was smoking cessation discussed for >3mins.? @ -No Was critical care preformed (if so, how long)? @ -No Were there social determinants of health that impacted care today? How? (Homelessness, low income, unemployed, alcoholism, drug addiction, transportation, low edu. Level, literacy, decrease access to med. care, long term, rehab)? @ -No Was there de-escalation of care discussed even if they declined (Discuss DNR or withdrawal of care, Hospice)? DNR status @ -No What co-morbidities impacted this encounter? (DM, HTN, Smoking, COPD, CAD, Cancer, CVA, ARF, Chemo, Hep., AIDS, mental health diagnosis, sleep apnea, morbid obesity)? @ -None Was patient admitted / discharged? Hospital course, mention meds given and route, prescriptions, significant lab abnormalities, going to OR and other pertinent info. @ -Patient presenting after fall. Patient is intoxicated but alert and oriented 4. GCS is 15. Due to intoxication, right periorbital swelling/ecchymosis with laceration, CT of the brain, C-spine, facial bones was obtained, interpreted by myself/radiology. No acute intracranial hemorrhage, midline shift, mass effect. No acute fracture or subluxation of the cervical spine. No acute osseous process of the facial bones X-ray interpreted by myself concerning for scaphoid fracture. Placed in volar arm splint. Laceration approximated with exofin. Patient discharged in stable condition he is referred to forestry extension specialist Undiagnosed new problem with uncertain prognosis? @ -No Drug Therapy requiring intensive monitoring for toxicity (Heparin, Nitro, Insulin, Cardizem)? @ -No Were any procedures done? @ -Splinting, laceration repair Diagnosis/symptom? @ -Right wrist injury, head injury, alcohol intoxication, laceration Acute, or Chronic, or Acute on Chronic? @ -Acute Uncomplicated (without systemic symptoms) or Complicated (systemic symptoms)? @ -Uncomplicated Side effects of treatment? @ -No Exacerbation, Progression, or Severe Exacerbation? @ -No Poses a threat to life or bodily function? How? (Chest pain, USA, MD, pneumonia, PE, COPD, DKA, ARF, appy, cholecystitis, CVA, Diverticulitis, Homicidal, Suicidal, threat to staff... and all critical care pts) @ -No Dr. Grimaldo is my attending Disposition Clinical Impression: Fall, Right wrist injury, Alcohol intoxication, Laceration, Head injury Disposition: HOME SELF-CARE Condition: Good Instructions (If sedation given, give patient instructions): Fall Prevention for Older Adults (ED), Scaphoid Fracture (ED) Additional Instructions: Keep splint clean and dry. Keep it out until orthopedic clearance. Take Tylenol for pain. Follow-up with primary care provider and forestry extension specialist in one to 2 days. Return to the emergency department if you experience new, concerning, or worsening symptoms. Is patient prescribed a controlled substance at d/c from ED?: No Referrals: Michael Ruelas MD [Primary Care Provider] - 1-2 days Shoaib Brooks MD [STAFF PHYSICIAN] - 1-2 days
[2023-04-19 00:33] VITALS: BP 131/87; PULSE 90; RESP 17
== END 2023-04-19 00:34 | disposition home or self-care (01) ==
LOC: EC 22:02
DX: S01.81XA Laceration without foreign body of other part of head, initial encounter (principal); S69.91XA Unspecified injury of right wrist, hand and finger(s), initial encounter; F10.129 Alcohol abuse with intoxication, unspecified; I10 Essential (primary) hypertension; F41.9 Anxiety disorder, unspecified; F17.200 Nicotine dependence, unspecified, uncomplicated; Z79.899 Other long term (current) drug therapy; Z88.0 Allergy status to penicillin
CPT/HCPCS: 12011; 29125; 70450; 70486; 72125; 99284

== ENCOUNTER 2023-07-19 16:42 | Observation (INO) | payer MEDICARE ==
--- NOTE | 2023-07-19 17:44 | ED ---
General Adult HPI - General Source: patient, RN notes reviewed <Yanira Cruz - Last Filed: 07/19/23 17:41> - General Source: patient, RN notes reviewed Limitations: no limitations <Endy Padilla - Last Filed: 07/19/23 21:00> - General Stated complaint: back pain Time Seen by Provider: 07/19/23 17:40 - History of Present Illness Initial comments: 68 year old male presents to the emergency department for chief complaint of back pain x1 day. He states that he woke up in his chair yesterday and noticed pain in his upper right sided back. He states that this is worse with movement and he has not had any injury. He does have a history of chronic back pain. He reports the pain is worse with coughing. He has a history of COPD. (Yanira Cruz) Patient is a pleasant 68-year-old male presenting to the emergency Department with back pain. Patient does have chronic back pain. Patient slept in a new recliner last night and has had increased back pain since that time. Patient states discomfort is greatly increased with any movement at all. Patient does have dyspnea however has chronic COPD similar to this. (Endy Padilla) - Related Data Home Medications Medication Instructions Recorded Confirmed Buprenorphine/Naloxone 8Mg/2Mg 1 film SL TID 01/16/23 03/14/23 [Suboxone 8-2Mg Film] ALPRAZolam [Xanax] 0.25 mg PO TID PRN 03/14/23 03/14/23 Previous Rx's Medication Instructions Recorded Albuterol Sulfate [Ventolin HFA] 2 puff INHALATION Q6H PRN #1 each 03/15/23 Budesonide-Formot 160-4.5 Mcg 2 puff INHALATION RT-BID #1 each 03/15/23 [Symbicort 160-4.5 Mcg Inhaler] amLODIPine [Norvasc] 2.5 mg PO DAILY #30 tab 03/15/23 methylPREDNISolone Dose Pack See Taper PO DIRECTED #1 tab 03/15/23 [Medrol Dose Pack] Allergies Allergy/AdvReac Type Severity Reaction Status Date / Time Penicillins Allergy Unknown Verified 07/19/23 17:45 Childhood Review of Systems ROS Other: All systems not noted in ROS Statement are negative. <Yanira Cruz - Last Filed: 07/19/23 17:41> ROS Other: All systems not noted in ROS Statement are negative. Constitutional: Denies: fever Eyes: Denies: eye pain ENT: Denies: ear pain Respiratory: Reports: as per HPI, cough Cardiovascular: Denies: chest pain Endocrine: Denies: fatigue Gastrointestinal: Denies: abdominal pain Musculoskeletal: Reports: back pain Skin: Denies: rash Neurological: Denies: weakness <Endy Padilla - Last Filed: 07/19/23 21:00> ROS Statement: Those systems with pertinent positive or pertinent negative responses have been documented in the HPI. Past Medical History Past Medical History: Hypertension, Liver Disease Additional Past Medical History / Comment(s): HEP C; HX OF DIALYSIS PER PT, NOW OFF. History of Any Multi-Drug Resistant Organisms: MRSA Date of last positivie culture/infection: 2007 MDRO Source:: Blood/Bone Past Surgical History: Cholecystectomy, Hernia Repair, Tonsillectomy Additional Past Surgical History / Comment(s): COLONOSCOPY. Umbilical and Inguinal surgery x4 Past Anesthesia/Blood Transfusion Reactions: No Reported Reaction Past Psychological History: Anxiety, Panic Disorder Smoking Status: Current some day smoker Past Alcohol Use History: Daily Past Drug Use History: None Reported - Past Family History Mother Family Medical History: Cancer Additional Family Medical History / Comment(s): of colon CA Father Family Medical History: Cancer Additional Family Medical History / Comment(s): Colostomy from colon CA <Yanira Cruz - Last Filed: 07/19/23 17:41> General Exam <Yanira Cruz - Last Filed: 07/19/23 17:41> Limitations: no limitations General appearance: alert, in no apparent distress Head exam: Present: normocephalic Eye exam: Present: normal appearance Neck exam: Present: normal inspection. Absent: tenderness Respiratory exam: Present: decreased breath sounds Cardiovascular Exam: Present: regular rate, normal rhythm Expanded Peripheral pulses: 2+: Dorsalis Pedis (R), Dorsalis Pedis (L) GI/Abdominal exam: Present: soft. Absent: distended, tenderness Extremities exam: Present: normal inspection. Absent: calf tenderness Back exam: Present: tenderness (Right lateral mid thoracic) Neurological exam: Present: alert. Absent: motor sensory deficit Psychiatric exam: Present: normal affect, normal mood Skin exam: Present: normal color <Endy Padilla - Last Filed: 07/19/23 21:00> - General Exam Comments Initial Comments: Visual Physical Exam Vital signs reviewed General: Well-appearing, nontoxic, no acute distress. Head: Normocephalic, atraumatic Eyes: PERRLA, EOMI ENT: Airway patent Chest: Nonlabored breathing Skin: No visual rash, normal skin tone Neuro: Alert and oriented 3 Musculoskeletal: No gross abnormalities (Yanira Cruz) Course Vital Signs 07/19/23 07/19/23 17:41 19:25 Temperature 98 F 98.3 F Pulse Rate 81 86 Respiratory 18 22 Rate Blood Pressure 156/92 133/77 O2 Sat by Pulse 92 L 90 L Oximetry EKG Findings - EKG Results: EKG: interpreted by ERMD (Left axis), sinus rhythm, normal QRS, normal ST/T <Endy Padilla - Filed: 07/19/23 21:00> Medical Decision Making <Yanira Cruz - Last Filed: 07/19/23 17:41> - Lab Data Result diagrams: 07/19/23 20:00 <Endy Padilla - Last Filed: 07/19/23 21:00> - Medical Decision Making I preformed the quick note portion of this chart. Electronically signed by Yanira Cruz PA-C. (Yanira Cruz) Was pt. sent in by a medical professional or institution ([facility], [employer], urgent care, hospital, or prison...) When possible be specific @ -No Did you speak to anyone other than the patient for history (EMS, parent, family, police, friend...)? What history was obtained from this source @ -No Did you review nursing and triage notes (agree or disagree)? Why? @ -I reviewed and agree with nursing and triage notes Were old charts reviewed (outside hosp., previous admission, EMS record, old EKG, old radiological studies, urgent care reports/EKG's, prison records)? Report findings @ -Is chest x-ray reviewed Differential Diagnosis (chest pain, altered mental status, abdominal pain women, abdominal pain men, vaginal bleeding, weakness, fever, dyspnea, syncope, headache, dizziness, GI bleed, back pain, seizure, CVA, palpatations, mental health, musculoskeletal)? @ -Differential Back Pain: Strain, zoster, cauda equina syndrome, epidural abscess, vertebral osteomyelitis, discitis, fracture, subluxation, disc herniation, DJD, spinal stenosis, dissection, AAA, pancreatitis, peptic ulcer disease, pyelonephritis, kidney stone, this is not meant to be an all-inclusive list. EKG interpreted by me (3pts min.). @ -As above X-rays interpreted by me (1pt min.). @ -Thoracic spine x-ray does not reveal acute abnormality. Chest x-ray shows chronic scarring right base. CT interpreted by me (1pt min.). @ -None done U/S interpreted by me (1pt. min.). @ -None done What testing was considered but not performed or refused? (CT, X-rays, U/S, labs)? Why? @ -None What meds were considered but not given or refused? Why? @ -None Did you discuss the management of the patient with other professionals (professionals i.e. , PA, [employer], lab, RT, psych nurse, social work therapist, material planner, teacher, operational intelligence officer, ed case manager)? Give summary @ -Case was discussed with Dr. Ruelas who will admit his patient. He is aware of pending d-dimer. Was smoking cessation discussed for >3mins.? @ -No Was critical care preformed (if so, how long)? @ -No Were there social determinants of health that impacted care today? How? (Homelessness, low income, unemployed, alcoholism, drug addiction, transportation, low edu. Level, literacy, decrease access to med. care, snf, rehab)? @ -No Was there de-escalation of care discussed even if they declined (Discuss DNR or withdrawal of care, Hospice)? DNR status @ -No What co-morbidities impacted this encounter? (DM, HTN, Smoking, COPD, CAD, Cancer, CVA, ARF, Chemo, Hep., AIDS, mental health diagnosis, sleep apnea, morbid obesity)? @ -None Was patient admitted / discharged? Hospital course, mention meds given and rou te, prescriptions, significant lab abnormalities, going to OR and other pertinent info. @ -Patient reevaluated and still having pain. Patient also having some shortness of breath consistent with COPD. Patient will be admitted for pain control as well as COPD. Admission orders written. Undiagnosed new problem with uncertain prognosis? @ -No Drug Therapy requiring intensive monitoring for toxicity (Heparin, Nitro, Insul in, Cardizem)? @ -No Were any procedures done? @ -No Diagnosis/symptom? @ -Back Pain, COPD Acute, or Chronic, or Acute on Chronic? @ -Acute on chronic, acute on chronic Uncomplicated (without systemic symptoms) or Complicated (systemic symptoms)? @ -default Side effects of treatment? @ -No Exacerbation, Progression, or Severe Exacerbation? @ -Exacerbation of COPD Poses a threat to life or bodily function? How? (Chest pain, USA, PR, pneumonia, PE, COPD, DKA, ARF, appy, cholecystitis, CVA, Diverticulitis, Homicidal, Suicidal, threat to staff... and all critical care pts) @ -No (Endy Padilla) - Lab Data Lab Results 07/19/23 07/19/23 Range/Units 20:00 20:00 WBC 7.7 (3.8-10.6) k/uL RBC 5.02 (4.30-5.90) m/uL Hgb 17.0 (13.0-17.5) gm/dL Hct 48.7 (39.0-53.0) % MCV 97.0 (80.0-100.0) fL MCH 33.9 (25.0-35.0) pg MCHC 34.9 (31.0-37.0) g/dL RDW 13.1 (11.5-15.5) % Plt Count 188 (150-450) k/uL MPV 6.9 Neutrophils % 76 % Lymphocytes % 15 % Monocytes % 4 % Eosinophils % 3 % Basophils % 0 % Neutrophils # 5.8 (1.3-7.7) k/uL Lymphocytes # 1.1 (1.0-4.8) k/uL Monocytes # 0.3 (0-1.0) k/uL Eosinophils # 0.3 (0-0.7) k/uL Basophils # 0.0 (0-0.2) k/uL Plasma Lactic Acid Juan Manuel 1.3 (0.7-2.0) mmol/L Disposition <Yanira Cruz - Last Filed: 07/19/23 17:41> Is patient prescribed a controlled substance at d/c from ED?: No Time of Disposition: 21:00 <Endy Padilla - Last Filed: 07/19/23 21:00> Clinical Impression: Back pain, COPD (chronic obstructive pulmonary disease) Disposition: ADMITTED IP TO THIS HOSP Referrals: Michael Ruelas MD [Primary Care Provider] - 1-2 days
[2023-07-19] MEDS ORDERED: HYDROmorphone 1 MG/ML 1 ML SYRINGE IM STA (19:25)
--- NOTE | 2023-07-19 19:29 | XR ---
EXAMINATION TYPE: XR chest 2V, XR thoracic spine 2V DATE OF EXAM: 07/19/2023 COMPARISON: 03/15/2023 HISTORY: 68-year-old male with back pain TECHNIQUE: AP and lateral views FINDINGS: Chest: Heart borderline in size. Interstitial prominence. Mild hyperinflation. Focal opacity right mid and l ower lung redemonstrated. This seems to be a largely chronic finding associated with thickening and c alcification of the posterior right pleura. THORACIC SPINE: Limited due to the degree of osteopenia. Grade 1, nearly grade 2 anterolisthesis C4-C5. Remaining annalee tebral bodies appear to be aligned. Overall vertebral body heights appear maintained. IMPRESSION: 1. Chest: COPD and borderline cardiomegaly. Pleural parenchymal opacity at the right lower lung is si milar relating to chronic appearing pleural thickening and calcification. No significant change is id entified. The lumbar to thoracic spine: 2. Thoracic spine: Known prominent anterolisthesis, nearly grade 2 at C4-C5. The degree of osteopenia limits the evaluation. No obvious vertebral compression collapse or other malalignment seen.
[2023-07-19] MEDS ORDERED: IPRATROPIUM-ALBUTEROL 3 ML NEB INHALATION STA (19:31)
[2023-07-19] MEDS ORDERED: methylPREDNISolone SOD SUCCI 125 MG/2 ML VIAL IV STA ×2 (19:31→21:00)
[2023-07-19] MEDS ORDERED: HYDROmorphone 1 MG/ML 1 ML SYRINGE IVP STA (19:32)
[2023-07-19 20:19] LABS: Basophils % (A) 0 %; Eosinophils # (A) 0.3 k/uL (0-0.7); Eosinophils % (A) 3 %; HCT 48.7 % (39.0-53.0); Lymphocytes # (A) 1.1 k/uL (1.0-4.8); Lymphocytes % (A) 15 %; MCH 33.9 pg (25.0-35.0); MCHC 34.9 g/dL (31.0-37.0); Mean Platelet Volume 6.9; Monocytes # (A) 0.3 k/uL (0-1.0); Monocytes % (A) 4 %; Neutrophils # (A) 5.8 k/uL (1.3-7.7); Neutrophils % (A) 76 %; Platelet Count 188 k/uL (150-450); RBC 5.02 m/uL (4.30-5.90); RDW 13.1 % (11.5-15.5); WBC 7.7 k/uL (3.8-10.6)
[2023-07-19 20:36] LABS: ALT 92 U/L (4-49); African American GFR (CKD) 71 (>60 ml/min/1.73 sqM); Albumin 4.7 g/dL (3.5-5.0); Anion Gap 11 mmol/L; Blood Urea Nitrogen 22 mg/dL (9-20); Calcium 9.8 mg/dL (8.4-10.2); Carbon Dioxide 30 mmol/L (22-30); Chloride 98 mmol/L (98-107); Glucose 120 mg/dL (74-99); Non-African American GFR(CKD) 62 (>60 ml/min/1.73 sqM); Sodium 139 mmol/L (137-145); Total Bilirubin 1.2 mg/dL (0.2-1.3); Total Protein 7.8 g/dL (6.3-8.2)
[2023-07-19] MEDS ORDERED: NALOXONE 0.4 MG/ML 1 ML VIAL IVP PRN (21:00)
[2023-07-19] MEDS ORDERED: IPRATROPIUM-ALBUTEROL 3 ML NEB INHALATION PRN (21:00)
[2023-07-19] MEDS ORDERED: HYDROcodone/APAP 5-325MG 1 EACH TAB PO PRN (21:00)
[2023-07-19] MEDS ORDERED: ACETAMINOPHEN TAB 325 MG TAB PO PRN (21:00)
[2023-07-19 21:02] LABS: AST 82 U/L (17-59); Magnesium 1.9 mg/dL (1.6-2.3); Potassium 4.4 mmol/L (3.5-5.1)
[2023-07-19 21:03] LABS: Alkaline Phosphatase 88 U/L (38-126)
[2023-07-20] MEDS: methylPREDNISolone SOD SUCCI 125 MG/2 ML VIAL IV SCH ×4 (04:00→21:43)
[2023-07-20 06:43] LABS: Partial Thromboplastin Time 22.3 sec (22.0-30.0); Prothrombin Time 11.1 sec (10.0-12.5)
[2023-07-20] MEDS: IPRATROPIUM-ALBUTEROL 3 ML NEB INHALATION SCH ×4 (07:55→20:33)
[2023-07-20] MEDS ORDERED: ALBUTEROL SULFATE INHALATION PRN (10:59)
[2023-07-20] MEDS ORDERED: ALPRAZolam 0.5 MG TAB PO PRN (10:59)
[2023-07-20] MEDS ORDERED: IPRATROPIUM-ALBUTEROL 3 ML NEB INHALATION SCH (12:00)
[2023-07-20] MEDS: PATIENT'S OWN (Buprenorphine/Naloxone 8mg/2mg 1 EACH Film) SUBLINGUAL SCH ×2 (14:59→21:23)
[2023-07-20] MEDS: SYMBICORT 160-4.5 MCG INHALER INHALATION SCH (20:29)
[2023-07-20] MEDS: buPROPion XL 150 MG TAB.ER.24H PO SCH (21:43)
[2023-07-20] MEDS: HYDROmorphone 1 MG/ML 1 ML SYRINGE IVP PRN (21:43)
--- NOTE | 2023-07-21 01:18 | HP ---
HISTORY AND PHYSICAL CHIEF COMPLAINT: Difficulty breathing and low back pain. HISTORY OF PRESENT ILLNESS: This is another admission for this 68-year-old white male, who has a history of alcoholism, COPD, and frequent falls. He was in the hospital several months ago after he fell and fractured number of ribs. He came into the hospital this time with difficulty breathing and as usual low back pain. REVIEW OF SYSTEMS: He has had no fever, chills, hemoptysis, vomiting, abdominal pain, urinary complaints, etc. Past medical history, family history, and personal and social histories are all otherwise unremarkable or noncontributory. PHYSICAL EXAMINATION: VITAL SIGNS: Blood pressure is elevated at 256/92. HEAD, EARS, EYES, NOSE, MOUTH, AND THROAT: Normal. CHEST: Demonstrated decreased breath sounds due to his emphysema. CARDIAC: Demonstrated normal sinus rhythm. ABDOMEN: Slightly protuberant, soft and nontender without visceromegaly or masses. Bowel sounds present. EXTREMITIES: Normal. IMPRESSION: He is admitted to the hospital with diagnoses of: 1. Exacerbation of chronic obstructive pulmonary disease. 2. Hypertension. 3. Low back pain. 4. Chronic obstructive pulmonary disease. 5. Alcoholism. PLAN: 1. Bedrest. 2. IV fluids. 3. Nasal O2 and updrafts. 4. Control hypertension. MMODL / IJN: [id number] /
--- NOTE | 2023-07-21 02:19 | PN ---
PROGRESS NOTE DATE OF SERVICE: 07/20/2023 CHIEF COMPLAINT: Shortness of breath and back pain. HISTORY OF PRESENT ILLNESS: This gentleman is doing fairly well. There has been no change in his vital signs. PHYSICAL EXAMINATION: LUNGS: Breath sounds are diminished throughout due to his emphysema. CHEST: Nontender. CARDIAC: Normal. ABDOMEN: Soft, nontender. IMPRESSION: 1. Back pain. 2. Chronic obstructive pulmonary disease. PLAN: Continue to follow his vital signs, signs and symptoms and laboratory studies. MMODL / IJN: [id number] /
[2023-07-21] MEDS: methylPREDNISolone SOD SUCCI 125 MG/2 ML VIAL IV SCH ×4 (04:21→21:57)
[2023-07-21] MEDS: HYDROmorphone 1 MG/ML 1 ML SYRINGE IVP PRN ×2 (08:38→16:47)
[2023-07-21] MEDS: ATORVASTATIN 40 MG TAB PO SCH (08:39)
[2023-07-21] MEDS: buPROPion XL 150 MG TAB.ER.24H PO SCH ×2 (08:39→21:56)
[2023-07-21] MEDS: amLODIPine 2.5 MG TAB PO SCH (08:39)
[2023-07-21] MEDS: IPRATROPIUM-ALBUTEROL 3 ML NEB INHALATION SCH ×4 (09:29→20:10)
[2023-07-21] MEDS: SYMBICORT 160-4.5 MCG INHALER INHALATION SCH ×2 (09:29→20:10)
[2023-07-21] MEDS: PATIENT'S OWN (Buprenorphine/Naloxone 8mg/2mg 1 EACH Film) SUBLINGUAL SCH ×3 (10:50→21:56)
[2023-07-21 12:54] VITALS: BMI 26.4
--- NOTE | 2023-07-21 22:28 | PN ---
PROGRESS NOTE DATE OF SERVICE: 07/21/2023 CHIEF COMPLAINT: Back pain, COPD and alcoholism. HISTORY OF PRESENT ILLNESS: This is a gentleman who is doing fairly well. He is still very dyspneic, but he has advanced COPD. His LS spine arthritis is bothering him as well. LABORATORY STUDIES: AST and ALT are elevated secondary to his alcoholism. PHYSICAL EXAMINATION: Unchanged from admission with very poor breath sounds and increased AP diameter. CARDIAC: Normal. ABDOMEN: Soft, nontender. IMPRESSION: 1. Exacerbation of chronic obstructive pulmonary disease. 2. Alcoholism. 3. Alcoholic hepatitis. 4. L-spine arthritis. PLAN: 1. Management of his COPD. 2. Physical therapy. 3. Discharge planning. MMODL / IJN: [id number] /
[2023-07-22] MEDS: HYDROmorphone 1 MG/ML 1 ML SYRINGE IVP PRN ×4 (00:39→21:26)
[2023-07-22] MEDS: methylPREDNISolone SOD SUCCI 125 MG/2 ML VIAL IV SCH ×4 (03:47→21:13)
[2023-07-22] MEDS: amLODIPine 2.5 MG TAB PO SCH (07:34)
[2023-07-22] MEDS: ATORVASTATIN 40 MG TAB PO SCH (07:34)
[2023-07-22] MEDS: buPROPion XL 150 MG TAB.ER.24H PO SCH ×2 (07:34→21:13)
[2023-07-22] MEDS: IPRATROPIUM-ALBUTEROL 3 ML NEB INHALATION SCH ×4 (08:40→20:41)
[2023-07-22] MEDS: SYMBICORT 160-4.5 MCG INHALER INHALATION SCH ×2 (08:40→20:41)
[2023-07-22] MEDS: PATIENT'S OWN (Buprenorphine/Naloxone 8mg/2mg 1 EACH Film) SUBLINGUAL SCH ×3 (09:55→21:14)
[2023-07-22] MEDS: BACLOFEN 10 MG TAB PO PRN (18:03)
[2023-07-23] MEDS: methylPREDNISolone SOD SUCCI 125 MG/2 ML VIAL IV SCH ×2 (04:17→10:16)
[2023-07-23] MEDS: HYDROmorphone 1 MG/ML 1 ML SYRINGE IVP PRN ×2 (04:21→10:20)
[2023-07-23 07:32] VITALS: BP 175/104; RESP 16; TEMP 98
[2023-07-23] MEDS: IPRATROPIUM-ALBUTEROL 3 ML NEB INHALATION SCH ×2 (08:27→11:41)
[2023-07-23] MEDS: SYMBICORT 160-4.5 MCG INHALER INHALATION SCH (08:27)
[2023-07-23] MEDS: BACLOFEN 10 MG TAB PO PRN (08:47)
[2023-07-23] MEDS: amLODIPine 2.5 MG TAB PO SCH (08:47)
[2023-07-23] MEDS: ATORVASTATIN 40 MG TAB PO SCH (08:47)
[2023-07-23] MEDS: buPROPion XL 150 MG TAB.ER.24H PO SCH (08:47)
[2023-07-23] MEDS: PATIENT'S OWN (Buprenorphine/Naloxone 8mg/2mg 1 EACH Film) SUBLINGUAL SCH (10:14)
[2023-07-23 12:08] VITALS: PULSE 64
--- NOTE | 2023-07-23 16:34 | DS ---
DISCHARGE SUMMARY CHIEF COMPLAINT: COPD, back pain, and alcohol intoxication. HISTORY OF PRESENT ILLNESS AND PHYSICAL EXAMINATION: Details of this man's history and physical can be found in the initial workup. LABORATORY STUDIES: While he was in the hospital, he had laboratory studies, details of which can be found in the laboratory section of his chart. COURSE IN THE HOSPITAL: After admission, he was placed on bedrest, started intravenous fluids, and electrolytes were monitored. He complained a lot of back pain, which is usual for him due to arthritis. He had no further problems while he was in the hospital, and his activity was increased. Initially, he had indicated that he wanted to go to a skilled nursing or rehab facility, but changed his mind. He was doing well enough. It was felt that he could be discharged home. He will go home on his usual activity, diet, and medication and follow up in the office in several days. FINAL DIAGNOSES: 1. Exacerbation of chronic obstructive pulmonary disease. 2. General debility and weakness. 3. Osteoarthritis of the lumbosacral spine. 4. Chronic obstructive pulmonary disease. 5. Alcoholism. 6. History of narcotic abuse. OPERATIONS: None. CONSULTATIONS: None. CONDITION: He is improved. MMODL / IJN: [id number] /
--- NOTE | 2023-07-23 19:52 | PN ---
PROGRESS NOTE DATE OF SERVICE: 07/22/2023 CHIEF COMPLAINT: Weakness, back pain, COPD. HISTORY OF PRESENT ILLNESS: This gentleman is doing a little bit better. His back is bothering him and he is requesting a muscle relaxant. His liver functions remain elevated, but are coming down, probably due to his alcoholism. PHYSICAL EXAMINATION: CHEST: Clear with decreased breath sounds. CARDIAC: Normal. ABDOMEN: Soft, nontender. IMPRESSION: 1. Electrolyte imbalance. 2. Low back pain secondary to arthritis. 3. Chronic obstructive pulmonary disease. 4. Alcoholism. PLAN: Baclofen 3 times a day and continue to monitor him neurologically and with regard to liver function. He was talking about going to an extended care facility, but now he wants to go home and he will be re-evaluated in 24 hours. MMODL / IJN: [id number] /
== END 2023-07-23 11:58 | disposition home health service (06) ==
LOC: EC 16:42 → INTOOBSV 21:00 → 4SSUR 21:00 → 6NMEDSUR 07-20 04:39 → 4SSUR 07-20 04:48 → UNDODISIN 07-23 11:58
PROVIDERS: ADMIT Family Medicine; ATTEND Family Medicine
DX: J44.1 Chronic obstructive pulmonary disease with (acute) exacerbation (principal); R53.81 Other malaise; M47.817 Spondylosis without myelopathy or radiculopathy, lumbosacral region; K70.10 Alcoholic hepatitis without ascites; F10.229 Alcohol dependence with intoxication, unspecified; I10 Essential (primary) hypertension; F41.9 Anxiety disorder, unspecified; E87.8 Other disorders of electrolyte and fluid balance, not elsewhere classified; F17.200 Nicotine dependence, unspecified, uncomplicated; Z79.51 Long term (current) use of inhaled steroids; Z79.899 Other long term (current) drug therapy; Z88.0 Allergy status to penicillin; Y90.0 Blood alcohol level of less than 20 mg/100 ml
CPT/HCPCS: 96376 ×5; 96375; 96372; 96374; 99285; 36415; 94640 ×7; 94760 ×2; 93005; 85379; 80053; 83605; 83735; 85025; 85610; 85730; 72070; 71046; G0378 ×5; G0480; J2930 ×5; J1170 ×5; 80320

== ENCOUNTER 2023-07-28 10:16 | Inpatient (IN) | payer MEDICARE ==
--- NOTE | 2023-07-28 10:49 | ED ---
SOB HPI - General Source: patient Mode of arrival: wheelchair Limitations: no limitations <Zakia Leigh - Last Filed: 07/28/23 10:51> <Jeffry Rogers - Last Filed: 07/28/23 19:45> - General Chief Complaint: Shortness of Breath Stated Complaint: copd Time Seen by Provider: 07/28/23 10:48 - History of Present Illness Initial Comments: Patient is 59-year-old male being sent here by Dr. Ruelas. Patient has past medical history significant for COPD patient states he is having increasing shortness of breath and back pain muscle. Patient was initially admitted here for similar complaint. Patient denies any fevers. (Zakia Leigh) Patient is a 68-year-old male with past medical history remarkable for chronic hypoxic respiratory failure secondary to COPD, baseline on 3 L nasal cannula at home, hypertension, liver disease who was discharged from the hospital yesterday after being admitted for COPD and is now having increased coughing as well as shortness of breath. Also had an episode yesterday where he felt lightheaded and states that he fell however did not suffer any injuries. He is not on blood thinners. Has no other acute complaints at this time. He is asking to be placed or to have home nursing care at home. Presents for further evaluation at this time. Patient originally seen as a quick note. (Jeffry Rogers) - Related Data Home Medications Medication Instructions Recorded Confirmed Buprenorphine/Naloxone 8Mg/2Mg 1 film SL TID 01/16/23 07/28/23 [Suboxone 8-2Mg Film] ALPRAZolam [Xanax] 0.5 mg PO BID PRN 07/19/23 07/28/23 Albuterol Sulfate [Ventolin HFA] 2 puff INHALATION RT-Q6H PRN 07/19/23 07/28/23 Atorvastatin [Lipitor] 40 mg PO DAILY 07/19/23 07/28/23 Ipratropium-Albuterol Nebulize 3 ml INHALATION RT-QID 07/19/23 07/28/23 [Duoneb 0.5 mg-3 mg/3 ml Soln] buPROPion XL [Wellbutrin XL] 150 mg PO BID 07/19/23 07/28/23 Levofloxacin [Levaquin] 500 mg PO DAILY 07/28/23 07/28/23 Nicotine 21Mg/24Hr Patch [Habitrol] 1 patch TRANSDERM DAILY PRN 07/28/23 07/28/23 methylPREDNISolone Dose Pack See Taper PO DIRECTED 07/28/23 07/28/23 [Medrol Dose Pack] Previous Rx's Medication Instructions Recorded Budesonide-Formot 160-4.5 Mcg 2 puff INHALATION RT-BID #1 each 03/15/23 [Symbicort 160-4.5 Mcg Inhaler] amLODIPine [Norvasc] 2.5 mg PO DAILY #30 tab 03/15/23 Baclofen [Lioresal] 20 mg PO TID PRN #30 tab 07/23/23 Allergies Allergy/AdvReac Type Severity Reaction Status Date / Time Penicillins Allergy Unknown Verified 07/28/23 13:29 Childhood Review of Systems ROS Other: All systems not noted in ROS Statement are negative. <Zakia Leigh - Last Filed: 07/28/23 10:51> ROS Other: All systems not noted in ROS Statement are negative. <Jeffry Rogers - Last Filed: 07/28/23 19:45> ROS Statement: Those systems with pertinent positive or pertinent negative responses have been documented in the HPI. Review of Systems: CONST: Denies fever EYES: Denies blurry vision ENT: Denies nasal congestion C/V: Denies Chest pain RESP: Endorses dyspnea GI: Denies abdominal pain : Denies dysuria SKIN: Denies rash. MSK: Denies joint pain. NEURO: Denies headache (Jeffry Rogers) Past Medical History Past Medical History: COPD, Hypertension, Liver Disease Additional Past Medical History / Comment(s): HEP C; HX OF DIALYSIS PER PT, NOW OFF. History of Any Multi-Drug Resistant Organisms: MRSA Date of last positivie culture/infection: 2007 MDRO Source:: Blood/Bone Past Surgical History: Cholecystectomy, Hernia Repair, Tonsillectomy Additional Past Surgical History / Comment(s): COLONOSCOPY. Umbilical and Inguinal surgery x4 Past Anesthesia/Blood Transfusion Reactions: No Reported Reaction Past Psychological History: Anxiety, Panic Disorder Smoking Status: Current some day smoker Past Alcohol Use History: Daily Past Drug Use History: None Reported - Past Family History Mother Family Medical History: Cancer Additional Family Medical History / Comment(s): of colon CA Father Family Medical History: Cancer Additional Family Medical History / Comment(s): Colostomy from colon CA <Zakia Leigh - Last Filed: 07/28/23 10:51> General Exam Limitations: no limitations <Zakia Leigh - Last Filed: 07/28/23 10:51> <Jeffry Rogers - Last Filed: 07/28/23 19:45> - General Exam Comments Initial Comments: Visual Physical Exam Vital signs reviewed General: Well-appearing, nontoxic, no acute distress. Head: Normocephalic, atraumatic Eyes: PERRLA, EOMI ENT: Airway patent Chest: Nonlabored breathing Skin: No visual rash, normal skin tone Neuro: Alert and oriented 3 Musculoskeletal: No gross abnormalities (Zakia Leigh) General: Appears in no acute distress. HEAD: Normal with no signs of head trauma. EYES: PERRLA, EOMI, conjunctiva normal, no discharge. ENT: Hearing grossly intact, normal oropharynx. RESPIRATORY: Bilateral end expiratory wheezing. No hypoxia on baseline 3 L n carol cannula at rest. No significant increased work of breathing. C/V: Regular rate and rhythm. S1 and S2 auscultated, no edema, peripheral pulses 2+ and intact throughout ABD: Abd is soft, nontender, nondistended EXT: Normal range of motion, no obvious deformity SKIN: No rashes or lesions observed on exposed skin. NEURO: Alert and oriented 4. (Jeffry Rogers) Course Vital Signs 07/28/23 07/28/23 07/28/23 10:20 12:08 14:16 Temperature 98 F Pulse Rate 100 80 66 Respiratory 22 18 14 Rate Blood Pressure 121/76 131/90 133/88 O2 Sat by Pulse 92 L 95 96 Oximetry 07/28/23 07/28/23 07/28/23 15:29 15:39 15:49 Temperature Pulse Rate 67 98 94 Respiratory 14 Rate Blood Pressure 125/86 O2 Sat by Pulse 96 Oximetry 07/28/23 18:35 Temperature Pulse Rate 86 Respiratory 20 Rate Blood Pressure 134/90 O2 Sat by Pulse 94 L Oximetry Medical Decision Making <Zakia Leigh - Last Filed: 07/28/23 10:51> - Lab Data Result diagrams: 07/28/23 14:16 07/28/23 14:16 <Jeffry Rogers - Last Filed: 07/28/23 19:45> - Medical Decision Making I performed the quick note portion of the exam. Electronically signed by Zakia Leigh PA-C (Zakia Leigh) Was pt. sent in by a medical professional or institution (HILARY Veliz, UNIX MANAGER, urgent care, hospital, or correction...) When possible be specific @ -No Did you speak to anyone other than the patient for history (EMS, parent, family, police, friend...)? What history was obtained from this source @ -No Did you review nursing and triage notes (agree or disagree)? Why? @ -I reviewed and agree with nursing and triage notes Were old charts reviewed (outside hosp., previous admission, EMS record, old EKG, old radiological studies, urgent care reports/EKG's, correction records)? Report findings @ -Old charts reviewed Differential Diagnosis (chest pain, altered mental status, abdominal pain women, abdominal pain men, vaginal bleeding, weakness, fever, dyspnea, syncope, headache, dizziness, GI bleed, back pain, seizure, CVA, palpatations, mental health, musculoskeletal)? @ -Differential Dyspnea: Coronary syndrome, arrhythmia, tamponade, asthma, COPD, pulmonary embolism, pneumonia, pneumothorax, pulmonary effusion, anaphylaxis, diabetic ketoacidosis, flailed chest, pulmonary contusion, diaphragmatic rupture, anemia, neuromuscular, this is not meant to be an all-inclusive list. EKG interpreted by me (3pts min.). @ -As above X-rays interpreted by me (1pt min.). @ -Chest x-ray reveals possible left lower lobe pneumonia versus atelectasis. CT interpreted by me (1pt min.). @ -None done U/S interpreted by me (1pt. min.). @ -None done What testing was considered but not performed or refused? (CT, X-rays, U/S, labs)? Why? @ -None What meds were considered but not given or refused? Why? @ -None Did you discuss the management of the patient with other professionals (professionals i.e. HILARY Veliz, UNIX MANAGER, lab, RT, psych nurse, elementary school social worker, quality assurance specialist, teacher, information management officer, case checker)? Give summary @ -Discussed with the admitting physician Dr. Ruelas who accepted the patient Was smoking cessation discussed for >3mins.? @ -No Was critical care preformed (if so, how long)? @ -No Were there social determinants of health that impacted care today? How? (Homelessness, low income, unemployed, alcoholism, drug addiction, transportation, low edu. Level, literacy, decrease access to med. care, correction, rehab)? @ -No Was there de-escalation of care discussed even if they declined (Discuss DNR or withdrawal of care, Hospice)? DNR status @ -No What co-morbidities impacted this encounter? (DM, HTN, Smoking, COPD, CAD, Cancer, CVA, ARF, Chemo, Hep., AIDS, mental health diagnosis, sleep apnea, morbid obesity)? @ -None Was patient admitted / discharged? Hospital course, mention meds given and route, prescriptions, significant lab abnormalities, going to OR and other pertinent info. @ -Based on the patient's presentation and physical exam, presents for weak ness, chronic hypoxia secondary to COPD. He is asking to be placed. Vital signs on his baseline nasal cannula oxygen are within acceptable limits. We will obtain basic labs, viral swabs, chest x-ray as well as a screening EKG. Patient was symptomatically treated with a DuoNeb. He was in agreement this plan. Chest x-ray shows findings concerning for developing pneumonia compared to previous x-ray. Patient will be started on IV antibiotics at this time. Blood cultures obtained and sent. Patient's laboratory studies are relatively unremarkable. Patient is Covid- positive. I discussed results with the patient. We will obtain blood cultures and he was started empirically on azithromycin and Rocephin for pneumonia and will continue treatment of his mild COPD exacerbation. He was in agreement with this plan. I discussed the case with his excepting physician Dr. Ruelas who accepted the patient. Undiagnosed new problem with uncertain prognosis? @ -No Drug Therapy requiring intensive monitoring for toxicity (Heparin, Nitro, Insulin, Cardizem)? @ -No Were any procedures done? @ -No Diagnosis/symptom? @ -COPD with chronic hypoxic respiratory failure on 3 L nasal cannula Acute, or Chronic, or Acute on Chronic? @ -Chronic Uncomplicated (without systemic symptoms) or Complicated (systemic symptoms)? @ -Complicated Side effects of treatment? @ -No Exacerbation, Progression, or Severe Exacerbation? @ -Exacerbation Poses a threat to life or bodily function? How? (Chest pain, USA, OR, pneumonia, PE, COPD, DKA, ARF, appy, cholecystitis, CVA, Diverticulitis, Homicidal, Suicidal, threat to staff... and all critical care pts) @ -No Diagnosis/symptom? @ -Pneumonia, COVID-19 infection Acute, or Chronic, or Acute on Chronic? @ -Acute Uncomplicated (without systemic symptoms) or Complicated (systemic symptoms)? @ -Complicated Side effects of treatment? @ -none Exacerbation, Progression, or Severe Exacerbation] @ -no Poses a threat to life or bodily function? @ -yes (Jeffry Rogers) - Lab Data Lab Results 07/28/23 07/28/23 07/28/23 Range/Units 14:16 14:16 14:16 WBC 8.1 (3.8-10.6) k/uL RBC 4.82 (4.30-5.90) m/uL Hgb 15.7 (13.0-17.5) gm/dL Hct 46.2 (39.0-53.0) % MCV 95.9 (80.0-100.0) fL MCH 32.6 (25.0-35.0) pg MCHC 34.0 (31.0-37.0) g/dL RDW 13.3 (11.5-15.5) % Plt Count 167 (150-450) k/uL MPV 8.1 Neutrophils % 90 % Lymphocytes % 4 % Monocytes % 5 % Eosinophils % 0 % Basophils % 0 % Neutrophils # 7.3 (1.3-7.7) k/uL Lymphocytes # 0.3 L (1.0-4.8) k/uL Monocytes # 0.4 (0-1.0) k/uL Eosinophils # 0.0 (0-0.7) k/uL Basophils # 0.0 (0-0.2) k/uL Sodium 135 L (137-145) mmol/L Potassium 5.4 H (3.5-5.1) mmol/L Chloride 103 (98-107) mmol/L Carbon Dioxide 21 L (22-30) mmol/L Anion Gap 11 mmol/L BUN 45 H (9-20) mg/dL Creatinine 1.48 H (0.66-1.25) mg/dL Est GFR (CKD-EPI)AfAm 55 (>60 ml/min/1.73 sqM) Est GFR (CKD-EPI)NonAf 48 (>60 ml/min/1.73 sqM) Glucose 114 H (74-99) mg/dL Calcium 8.9 (8.4-10.2) mg/dL Total Bilirubin 0.9 (0.2-1.3) mg/dL AST 53 (17-59) U/L ALT 54 H (4-49) U/L Alkaline Phosphatase 69 (38-126) U/L Total Protein 6.4 (6.3-8.2) g/dL Albumin 3.8 (3.5-5.0) g/dL Influenza Type A (PCR) Not Detected (Not Detectd) Influenza Type B (PCR) Not Detected (Not Detectd) RSV (PCR) Not Detected (Not Detectd) SARS-CoV-2 (PCR) Detected A (Not Detectd) Disposition <Zakia Leigh - Last Filed: 07/28/23 10:51> Is patient prescribed a controlled substance at d/c from ED?: No Time of Disposition: 14:55 <Jeffry Rogers - Last Filed: 07/28/23 19:45> Clinical Impression: COPD (chronic obstructive pulmonary disease), Pneumonia, COVID-19 Disposition: ADMITTED IP TO THIS HOSP Condition: Stable
--- NOTE | 2023-07-28 11:59 | XR ---
EXAMINATION TYPE: XR chest 2V DATE OF EXAM: 07/28/2023 COMPARISON: 07/19/2023 HISTORY: 68-year-old male with increased cough and back pain TECHNIQUE: AP and lateral views FINDINGS: Heart borderline in size. Hyperinflation. Some increasing patchy density at the left base. The mostly chronic opacity at the posterior right base is similar to slightly increased. IMPRESSION: 1. Chronic pleural parenchymal opacification/scarring at the posterior right base with calcification. 2. There appears to be some new patchy atelectasis versus developing infiltrate at the left base. Cor relate for any symptoms of pneumonia.
[2023-07-28] MEDS ORDERED: IPRATROPIUM-ALBUTEROL 3 ML NEB INHALATION STA (12:38)
[2023-07-28] MEDS ORDERED: methylPREDNISolone SOD SUCCI 40 MG/ML 1 ML VIAL IV STA (13:14)
[2023-07-28] MEDS ORDERED: AZITHROMYCIN 500 MG in SODIUM CHLORIDE 0.9% 250 ML IVPB STA (13:15)
[2023-07-28] MEDS ORDERED: PNEUMONIA PROTOCOL UTILIZED 1 EACH MISC PO PRN (13:15)
[2023-07-28 14:39] LABS: Basophils % (A) 0 %; Eosinophils % (A) 0 %; HCT 46.2 % (39.0-53.0); HGB 15.7 gm/dL (13.0-17.5); Lymphocytes # (A) 0.3 k/uL (1.0-4.8); Lymphocytes % (A) 4 %; MCH 32.6 pg (25.0-35.0); MCV 95.9 fL (80.0-100.0); Mean Platelet Volume 8.1; Monocytes # (A) 0.4 k/uL (0-1.0); Monocytes % (A) 5 %; Neutrophils # (A) 7.3 k/uL (1.3-7.7); Neutrophils % (A) 90 %; Platelet Count 167 k/uL (150-450); RBC 4.82 m/uL (4.30-5.90); RDW 13.3 % (11.5-15.5); WBC 8.1 k/uL (3.8-10.6)
[2023-07-28 14:45] LABS: ALT 54 U/L (4-49); AST 53 U/L (17-59); African American GFR (CKD) 55 (>60 ml/min/1.73 sqM); Albumin 3.8 g/dL (3.5-5.0); Alkaline Phosphatase 69 U/L (38-126); Anion Gap 11 mmol/L; Blood Urea Nitrogen 45 mg/dL (9-20); Calcium 8.9 mg/dL (8.4-10.2); Carbon Dioxide 21 mmol/L (22-30); Chloride 103 mmol/L (98-107); Glucose 114 mg/dL (74-99); Non-African American GFR(CKD) 48 (>60 ml/min/1.73 sqM); Sodium 135 mmol/L (137-145); Total Bilirubin 0.9 mg/dL (0.2-1.3); Total Protein 6.4 g/dL (6.3-8.2)
[2023-07-28 14:46] LABS: Potassium 5.4 mmol/L (3.5-5.1)
[2023-07-28] MEDS ORDERED: ACETAMINOPHEN TAB 325 MG TAB PO PRN (15:06)
[2023-07-28] MEDS ORDERED: NALOXONE 0.4 MG/ML 1 ML VIAL IV PRN (15:06)
[2023-07-28] MEDS: SODIUM CHLORIDE 0.9% 1,000 ML IV SCH (15:27)
[2023-07-28 16:11] LABS: Appearance,Urine Clear (Clear); Bilirubin,Urine Negative (Negative); Blood,Urine Small (Negative); Color,Urine Light Yellow; Glucose,Urine (UA) Negative (Negative); Ketones,Urine Negative (Negative); Leukocyte Esterase,Urine Negative (Negative); Mucus,Urine Rare /hpf; Nitrite,Urine Negative (Negative); PH, Urine 5.5 (5.0-8.0); Protein,Urine 2+ (Negative); RBC,Urine 1 /hpf (0-5); Specific Gravity,Urine 1.017 (1.001-1.035); Urobilinogen,Urine <2.0 mg/dL (<2.0); WBC,Urine 1 /hpf (0-5)
[2023-07-28] MEDS ORDERED: BACLOFEN 10 MG TAB PO PRN (16:33)
[2023-07-28] MEDS ORDERED: NICOTINE 21MG/24HR PATCH TRANSDERM PRN (16:33)
[2023-07-28] MEDS: HEPARIN SODIUM,PORCINE 5,000 UNIT/ML 1 ML VIAL SQ SCH (16:49)
[2023-07-28] MEDS ORDERED: IPRATROPIUM-ALBUTEROL 3 ML NEB INHALATION SCH (20:00)
[2023-07-28] MEDS: methylPREDNISolone SOD SUCCI 40 MG/ML 1 ML VIAL IV SCH (20:27)
[2023-07-28] MEDS: buPROPion XL 150 MG TAB.ER.24H PO SCH (20:28)
[2023-07-28] MEDS: PATIENT'S OWN (Buprenorphine/Naloxone 8mg/2mg 1 EACH Film) SUBLINGUAL SCH (20:48)
[2023-07-28] MEDS: IPRATROPIUM-ALBUTEROL 3 ML NEB INHALATION SCH (21:01)
[2023-07-28] MEDS: SYMBICORT 160-4.5 MCG INHALER INHALATION SCH (21:02)
[2023-07-28] MEDS: ALBUTEROL HFA INHALER INHALATION PRN (21:02)
[2023-07-28] MEDS ORDERED: PATIENT'S OWN (Buprenorphine/Naloxone 8mg/2mg 1 EACH Film) SUBLINGUAL SCH (22:00)
[2023-07-29] MEDS: HEPARIN SODIUM,PORCINE 5,000 UNIT/ML 1 ML VIAL SQ SCH ×4 (00:07→23:19)
[2023-07-29] MEDS: SODIUM CHLORIDE 0.9% 1,000 ML IV SCH ×2 (05:33→16:22)
--- NOTE | 2023-07-29 08:40 | XR ---
EXAMINATION TYPE: XR chest 2V DATE OF EXAM: 07/29/2023 COMPARISON: 07/28/2023 HISTORY: 68-year-old male pneumonia, cough, shortness of breath TECHNIQUE: Frontal and lateral views FINDINGS: Heart borderline in size. Hyperinflation with interstitial density. Ongoing patchy opacity right lowe r lung. Pleural-parenchymal opacity posterior right base remains unchanged and appears mostly chronic . Patchy opacity along the left heart margin persists. IMPRESSION: 1. COPD with chronic pleural parenchymal changes again calcifications posterior right base. 2. Suggestion of some superimposed patchy infiltrate right lower lung and along the left heart margin , fairly similar to prior.
[2023-07-29 09:09] LABS: Basophils # (A) 0.01 X 10*3/uL (0.00-0.10); Basophils % (A) 0.1 %; Eosinophils # (A) 0 X 10*3/uL (0.04-0.35); Eosinophils % (A) 0 %; HCT 40.5 % (39.6-50.0); HGB 13.8 g/dL (13.0-17.0); Lymphocytes # (A) 0.43 X 10*3/uL (0.90-5.00); Lymphocytes % (A) 4.2 %; MCH 32.5 pg (27.0-32.0); MCHC 34.1 g/dL (32.0-37.0); MCV 95.5 FL (80.0-97.0); Mean Platelet Volume 9.7 FL (9.5-12.2); Monocytes # (A) 0.67 X 10*3/uL (0.20-1.00); Monocytes % (A) 6.6 %; NRBC Per 100 WBC 0 X 10*3/uL (0.00-0.01); Neutrophils # (A) 9.04 X 10*3/uL (1.80-7.70); Neutrophils % (A) 88.7 %; Platelet Count 167 X 10*3/uL (140-440); RBC 4.24 X 10*6/uL (4.40-5.60); RDW 12.7 % (11.5-14.5); WBC 10.19 X 10*3/uL (4.50-10.00)
[2023-07-29] MEDS: IPRATROPIUM-ALBUTEROL 3 ML NEB INHALATION SCH ×4 (09:23→20:02)
[2023-07-29] MEDS: ALBUTEROL HFA INHALER INHALATION PRN ×4 (09:29→20:07)
[2023-07-29] MEDS: SYMBICORT 160-4.5 MCG INHALER INHALATION SCH ×2 (09:29→20:06)
[2023-07-29 09:31] LABS: BUN/Creat Ratio 27.21 Ratio (12.00-20.00); Blood Urea Nitrogen 38.1 mg/dL (9.0-27.0); Calcium 8.4 mg/dL (8.7-10.3); Carbon Dioxide 22.4 mmol/L (21.6-31.8); Chloride 105 mmol/L (96-109); Glucose 157 mg/dL (70-110); Potassium 4.8 mmol/L (3.5-5.5); Sodium 136 mmol/L (135-145)
[2023-07-29] MEDS: ATORVASTATIN 40 MG TAB PO SCH (09:39)
[2023-07-29] MEDS: methylPREDNISolone SOD SUCCI 40 MG/ML 1 ML VIAL IV SCH ×2 (09:39→20:23)
[2023-07-29] MEDS: buPROPion XL 150 MG TAB.ER.24H PO SCH ×2 (09:39→20:23)
[2023-07-29] MEDS: amLODIPine 2.5 MG TAB PO SCH (09:39)
[2023-07-29] MEDS: PATIENT'S OWN (Buprenorphine/Naloxone 8mg/2mg 1 EACH Film) SUBLINGUAL SCH ×3 (09:46→21:35)
[2023-07-29] MEDS: AZITHROMYCIN 500 MG TAB PO SCH (09:50)
--- NOTE | 2023-07-29 22:07 | HP ---
HISTORY AND PHYSICAL CHIEF COMPLAINT: Weakness, shortness of breath and inability to ambulate and care for himself. HISTORY OF PRESENT ILLNESS: This is an another admission for this 68-year-old white male with a history of severe COPD and alcoholism. He was in the office recently and was encouraged to go in. He was very dyspneic and weak. Chest x-ray demonstrated emphysema and right lower lobe infiltrate. He finally became more symptomatic and came back to the emergency room. REVIEW OF SYSTEMS: Unremarkable other than his weakness and difficulty breathing. He states he has not been drinking. Past medical history, family history and personal and social histories are all unchanged from his recent admitting and discharge summaries. He is allergic to penicillin. He takes Xanax, baclofen, amlodipine, Symbicort, Lipitor, DuoNeb, and he is on buprenorphine. He continues to smoke heavily. PHYSICAL EXAMINATION: VITAL SIGNS: Blood pressure is 140/84 with a pulse of 110, respirations 14, and temperature 99. GENERAL: Appeared to be very dyspneic. He is pale and chronically ill in appearance. HEAD, EARS, EYES, NOSE, MOUTH AND THROAT: Normal. NECK: Neck veins were not distended. CHEST: Demonstrated extremely clear breath sounds throughout with his inspiratory and expiratory wheezing and rales. No rhonchi. CARDIAC: Demonstrated sinus tachycardia. ABDOMEN: Soft. EXTREMITIES: Normal but he is extremely weak. IMPRESSION: 1. Exacerbation of chronic obstructive pulmonary disease. 2. Right lower lobe pneumonitis. 3. History of narcotic abuse. 4. End-stage chronic obstructive pulmonary disease. 5. Alcoholism. PLAN: 1. Bed rest. 2. IV fluids. 3. Updrafts. 4. Nasal O2. 5. IV and inhaled steroids. MMODL / IJN: [id number] /
--- NOTE | 2023-07-29 22:28 | PN ---
PROGRESS NOTE CHIEF COMPLAINT: Right-sided pneumonitis and COPD. HISTORY OF PRESENT ILLNESS: This gentleman is about the same. He is not feeling any better. He has had no fever, no chills, abdominal pain, chest pain, etc. PHYSICAL EXAMINATION: LUNGS: Breath sounds are markedly diminished throughout with wheezes, rales and rhonchi anteriorly and posteriorly. CARDIAC: Normal. ABDOMEN: Slightly protuberant. Bowel sounds are hyperactive. IMPRESSION: 1. Right lower lobe pneumonitis. 2. Respiratory failure. 3. Chronic alcoholism. 4. History of opioid dependence. PLAN: Continue with current management. MMODL / IJN: [id number] /
[2023-07-30] MEDS: SODIUM CHLORIDE 0.9% 1,000 ML IV SCH ×2 (00:23→22:38)
[2023-07-30] MEDS: ALBUTEROL HFA INHALER INHALATION PRN ×3 (09:20→21:03)
[2023-07-30] MEDS: SYMBICORT 160-4.5 MCG INHALER INHALATION SCH ×2 (09:20→21:03)
[2023-07-30] MEDS: IPRATROPIUM-ALBUTEROL 3 ML NEB INHALATION SCH (09:24)
[2023-07-30] MEDS: PATIENT'S OWN (Buprenorphine/Naloxone 8mg/2mg 1 EACH Film) SUBLINGUAL SCH ×3 (10:23→22:38)
[2023-07-30] MEDS: methylPREDNISolone SOD SUCCI 40 MG/ML 1 ML VIAL IV SCH ×2 (10:24→20:54)
[2023-07-30] MEDS: AZITHROMYCIN 500 MG TAB PO SCH (10:24)
[2023-07-30] MEDS: buPROPion XL 150 MG TAB.ER.24H PO SCH ×2 (10:24→20:54)
[2023-07-30] MEDS: amLODIPine 2.5 MG TAB PO SCH (10:24)
[2023-07-30] MEDS: ATORVASTATIN 40 MG TAB PO SCH (10:24)
[2023-07-30] MEDS: HEPARIN SODIUM,PORCINE 5,000 UNIT/ML 1 ML VIAL SQ SCH ×3 (10:24→20:54)
[2023-07-30] MEDS: ALPRAZolam 0.5 MG TAB PO PRN ×2 (10:26→20:55)
--- NOTE | 2023-07-30 19:55 | PN ---
PROGRESS NOTE CHIEF COMPLAINT: Right lower lobe pneumonitis and COPD. HISTORY OF PRESENT ILLNESS: This gentleman is doing reasonably well. He is still short of breath. He has had no fever. PHYSICAL EXAMINATION: LUNGS: Breath sounds are diminished throughout both lung moran. CARDIAC: Normal. ABDOMEN: Slightly protuberant and soft. IMPRESSION: 1. Right lower lobe pneumonitis. 2. Chronic obstructive pulmonary disease. 3. Alcoholism. PLAN: Continue with current management for his pneumonia and COPD. MMODL / IJN: [id number] /
[2023-07-31] MEDS: ALBUTEROL HFA INHALER INHALATION PRN ×2 (09:29→16:14)
[2023-07-31] MEDS: SYMBICORT 160-4.5 MCG INHALER INHALATION SCH ×2 (09:29→21:19)
[2023-07-31] MEDS: HEPARIN SODIUM,PORCINE 5,000 UNIT/ML 1 ML VIAL SQ SCH ×3 (09:41→22:15)
[2023-07-31] MEDS: amLODIPine 2.5 MG TAB PO SCH (09:41)
[2023-07-31] MEDS: PATIENT'S OWN (Buprenorphine/Naloxone 8mg/2mg 1 EACH Film) SUBLINGUAL SCH ×3 (09:41→22:14)
[2023-07-31] MEDS: buPROPion XL 150 MG TAB.ER.24H PO SCH ×2 (09:41→22:14)
[2023-07-31] MEDS: ATORVASTATIN 40 MG TAB PO SCH (09:41)
[2023-07-31] MEDS: methylPREDNISolone SOD SUCCI 40 MG/ML 1 ML VIAL IV SCH ×2 (09:42→22:14)
[2023-07-31] MEDS: SODIUM CHLORIDE 0.9% 1,000 ML IV SCH (09:42)
[2023-07-31] MEDS: ALPRAZolam 0.5 MG TAB PO PRN (10:55)
--- NOTE | 2023-07-31 15:48 | XR ---
EXAMINATION TYPE: XR chest 1V portable DATE OF EXAM: 07/31/2023 2:59 PM CLINICAL INDICATION:Male, 68 years old with history of RLL pneumonia; [facility] COMPARISON: Chest radiographs from 07/29/2023 TECHNIQUE: XR chest 1V portable Frontal view of the chest. FINDINGS: Lungs/Pleura: Similar multifocal airspace opacities. No evidence of pneumothorax or pleural effusion. Pulmonary vascularity: Unremarkable. Heart/mediastinum: Cardiomediastinal silhouette is unremarkable. Musculoskeletal: No acute osseous pathology. IMPRESSION: Persistent bilateral lower lobe airspace opacities.
[2023-08-01 02:43] LABS: ALT 64 U/L (10-49); AST 47 U/L (14-35); Albumin 3.8 g/dL (3.8-4.9); Albumin/Globulin Ratio 1.65 Ratio (1.60-3.17); Alkaline Phosphatase 77 U/L (41-126); BUN/Creat Ratio 25.77 Ratio (12.00-20.00); Blood Urea Nitrogen 33.5 mg/dL (9.0-27.0); Calcium 9.1 mg/dL (8.7-10.3); Carbon Dioxide 23.7 mmol/L (21.6-31.8); Chloride 96 mmol/L (96-109); Globulin 2.3 g/dL (1.6-3.3); Glucose 110 mg/dL (70-110); Potassium 4.9 mmol/L (3.5-5.5); Sodium 133 mmol/L (135-145); Total Bilirubin 0.3 mg/dL (0.3-1.2); Total Protein 6.1 g/dL (6.2-8.2)
[2023-08-01 02:44] LABS: Basophils # (A) 0.02 X 10*3/uL (0.00-0.10); Basophils % (A) 0.2 %; Eosinophils # (A) 0.01 X 10*3/uL (0.04-0.35); Eosinophils % (A) 0.1 %; HCT 46.6 % (39.6-50.0); HGB 16.2 g/dL (13.0-17.0); Lymphocytes # (A) 0.33 X 10*3/uL (0.90-5.00); Lymphocytes % (A) 2.7 %; MCH 32.8 pg (27.0-32.0); MCHC 34.8 g/dL (32.0-37.0); MCV 94.3 FL (80.0-97.0); Mean Platelet Volume 9.9 FL (9.5-12.2); Monocytes # (A) 0.62 X 10*3/uL (0.20-1.00); Monocytes % (A) 5.2 %; NRBC Per 100 WBC 0 X 10*3/uL (0.00-0.01); Neutrophils # (A) 10.98 X 10*3/uL (1.80-7.70); Neutrophils % (A) 91.2 %; Platelet Count 194 X 10*3/uL (140-440); RBC 4.94 X 10*6/uL (4.40-5.60); RDW 12.8 % (11.5-14.5); WBC 12.03 X 10*3/uL (4.50-10.00)
[2023-08-01] MEDS: SODIUM CHLORIDE 0.9% 1,000 ML IV SCH ×2 (05:49→12:17)
[2023-08-01 07:57] VITALS: BP 139/82; PULSE 58; RESP 18; TEMP 97.4
[2023-08-01] MEDS: ALBUTEROL HFA INHALER INHALATION PRN (09:18)
[2023-08-01] MEDS: SYMBICORT 160-4.5 MCG INHALER INHALATION SCH (09:18)
[2023-08-01] MEDS: PATIENT'S OWN (Buprenorphine/Naloxone 8mg/2mg 1 EACH Film) SUBLINGUAL SCH (09:37)
[2023-08-01] MEDS: methylPREDNISolone SOD SUCCI 40 MG/ML 1 ML VIAL IV SCH (09:38)
[2023-08-01] MEDS: HEPARIN SODIUM,PORCINE 5,000 UNIT/ML 1 ML VIAL SQ SCH (09:39)
[2023-08-01] MEDS: ATORVASTATIN 40 MG TAB PO SCH (09:39)
[2023-08-01] MEDS: amLODIPine 2.5 MG TAB PO SCH (09:39)
[2023-08-01] MEDS: buPROPion XL 150 MG TAB.ER.24H PO SCH (09:39)
[2023-08-01] MEDS: ALPRAZolam 0.5 MG TAB PO PRN (13:50)
--- NOTE | 2023-08-02 07:44 | CDI ---
Documentation Clarification Form Date: 08/02/23 From: Penelope Toribio Admit Date: 07/31/2023 08:47:00 AM Patient Name: Henri Arango Visit Number: [id number] Discharge Date: 08/01/2023 03:12:00 PM ATTENTION: The Clinical Documentation Specialists (CDI) and [facility] Coding Staff appreciate your assistance in clarifying documentation. Please respond to the clarification below the line at the bottom and electronically sign. The CDI & [facility] Coding staff will review the response and follow-up if needed. Please note: Queries are made part of the Legal Health Record. If you have any questions, please contact the author of this message via ITS. Dr. Michael Ruelas, Right lower lobe pneumonia is documented in the H&P and progress notes. Additional clarification regarding the type of pneumonia is requested. History/Risk Factors: COPD & alcoholism Clinical Indicators: Weakness,shortness of breathand inability to ambulate and care for himself. WBC/Left shift: WBC 12.03, Neutrophils 10.98 COVID-19: Positive X-ray: 07/29-Suggestion of some superimposed patchyinfiltrateright lower lung and along the left heart margin, fairly similar to prior. 07/31-Persistentbilateral lower lobe airspaceopacities. Lung/Breathing assessment: Appears to be dyspneic. Demonstrated extremely clear breath sounds throughout with his inspiratory and expiratorywheezingandrales. No rhonchi. Treatment: IV Solu-Medrol, IV Azithromycin, IV Rocephin, NC oxygen 2 L, nebulizer Please clarify the type of pneumonia, if known: [ ] Pneumonia due to COVID-19 [ ] Bacterial Pneumonia, specify causal organism (if known) [ ] Gram Negative Bacterial Pneumonia [ ] Other bacteria (please specify) [ ] Other, please specify [ ] Unable to determine MTDD
--- NOTE | 2023-08-02 12:52 | PN ---
PROGRESS NOTE DATE OF SERVICE: 07/31/2023 CHIEF COMPLAINT: Pneumonitis and COPD. HISTORY OF PRESENT ILLNESS: This gentleman is still quite congested and short of breath. He is still on nasal O2 to hold his pulse ox up around 90. REVIEW OF SYSTEMS: He denies any chest pain, no fever, no chills, etc. PHYSICAL EXAMINATION: CHEST: Still demonstrates very poor breath sounds with extensive rhonchi and rales throughout and a productive cough. CARDIAC: Normal. IMPRESSION: 1. Exacerbation of chronic obstructive pulmonary disease. 2. Pneumonitis. PLAN: Continue with inpatient management with antibiotics, updrafts, and steroids. MMODL / IJN: [id number] /
--- NOTE | 2023-08-03 16:04 | DS ---
DISCHARGE SUMMARY CHIEF COMPLAINT: COPD, pneumonitis, and alcoholism. HISTORY OF PRESENT ILLNESS AND PHYSICAL EXAMINATION: Details of this man's history and physical can be found in the initial workup. LABORATORY STUDIES: While he is in the hospital, he had laboratory studies, details of which can be found in the laboratory section of his chart. COURSE IN THE HOSPITAL: After admission, he was placed on bedrest, started on intravenous fluids, and nasal O2 as well as updrafts and antibiotics. He slowly improved and he did not have any difficulty with DTs. He was stable enough and it was felt that he could be discharged on the and will be followed up in the office in several days. FINAL DIAGNOSES: 1. Right lower lobe bronchopneumonia. 2. Chronic obstructive pulmonary disease. 3. Alcoholism. OPERATIONS: None. CONSULTATIONS: None. He is improved. MMLANDON / STEPHANIA: [id number] /
== END 2023-08-01 15:12 | disposition home health service (06) | DRG 190 ==
LOC: EC 10:16 → 6NMEDSUR 15:06 → OBSVTOIN 07-31 08:47
PROVIDERS: ADMIT Family Medicine; ATTEND Family Medicine
DX: J44.0 Chronic obstructive pulmonary disease with (acute) lower respiratory infection (principal); J18.0 Bronchopneumonia, unspecified organism; U07.1 COVID-19; F11.20 Opioid dependence, uncomplicated; J96.11 Chronic respiratory failure with hypoxia; J44.1 Chronic obstructive pulmonary disease with (acute) exacerbation; J43.9 Emphysema, unspecified; F10.20 Alcohol dependence, uncomplicated; B19.20 Unspecified viral hepatitis C without hepatic coma; F41.0 Panic disorder [episodic paroxysmal anxiety]; M54.9 Dorsalgia, unspecified; F17.200 Nicotine dependence, unspecified, uncomplicated; Z79.51 Long term (current) use of inhaled steroids; Z79.899 Other long term (current) drug therapy; Z86.14 Personal history of Methicillin resistant Staphylococcus aureus infection; Z88.0 Allergy status to penicillin
CPT/HCPCS: 36415; 71045; 71046; 80048; 80053; 81001; 85025; 87040; 87070; 87205; 87449; 87636; 94640; 94760; 96365; 96366; 96367; 96372; 96375; 99285